=== PATIENT | male | born 1940 | race Caucasian/White ===

== ENCOUNTER → 2017-11-08 08:47 | Outpatient (CLI) | payer MEDICARE, SELFPAY ==
[2017-11-08 09:06] LABS: Add Manual Diff / Slide Review NO; Basophils Percent Auto 0.3 % (0-2); Eosinophils Percent Auto 1.1 % (2-4); Hematocrit 41.4 % (41-53); Hemoglobin 13.9 g/dL (13.5-17.5); Lymphocytes Percent Auto 46.1 % (25-40); Mean Corpuscular HGB Conc 33.6 % (30-36); Mean Corpuscular Hemoglobin 31.4 PG (26-34); Mean Corpuscular Volume 93.3 fL (80-100); Monocytes Percent Auto 4.8 % (3-14); Neutrophils Absolute Auto 1600 /uL (3000-5900); Neutrophils Percent Auto 47.7 % (50-75); Platelet Count 113 X10^3/uL (150-400); Red Blood Cell Count 4.44 X10^6/uL (4.5-5.9); Red Cell Distribution Width 14.6 % (11.6-14.8); White Blood Cell Count 3.3 X10^3/uL (4.5-11.0)
[2017-11-08 09:23] LABS: Alanine Aminotransferase 38 IU/L (21-72); Albumin 4.3 g/dL (3.5-5.0); Albumin Globulin Ratio 1.5 (1.0-2.8); Alkaline Phosphatase 85 U/L (38-126); Aspartate Aminotransferase 33 IU/L (17-59); BUN Creatinine Ratio 16.7 (6-22); Bilirubin Total 0.5 mg/dL (0.2-1.3); Blood Urea Nitrogen 15 mg/dL (9-20); Calcium 9.2 mg/dL (8.4-10.2); Carbon Dioxide 29 mmol/L (22-32); Chloride 101 mmol/L (98-107); Estimated Glomerular Filt Rate > 60.0 mL/min (>60); Globulin 2.8 g/dL (1.7-4.1); Glucose 157 mg/dL (80-110); HEMOLYSIS < 15 (0-50); Lactate Dehydrogenase 554 U/L (313-618); Potassium 4.5 mmol/L (3.4-5.1); Sodium 142 mmol/L (137-145); Total Protein 7.1 g/dL (6.3-8.2)
== END ==
PROVIDERS: Family Provider Internal Medicine; PCP Internal Medicine; Visit Provider Nurse Practitioner Gerontology
DX: D69.6 Thrombocytopenia, unspecified (principal); D72.819 Decreased white blood cell count, unspecified
CPT/HCPCS: 36415; 80053; 83615; 85025

== ENCOUNTER → 2018-04-11 07:57 | Outpatient (CLI) | payer MEDICARE, SELFPAY ==
[2018-04-11 10:05] LABS: BUN Creatinine Ratio 17.5 (6-22); Blood Urea Nitrogen 21 mg/dL (9-20); Calcium 9.3 mg/dL (8.4-10.2); Carbon Dioxide 28 mmol/L (22-32); Chloride 98 mmol/L (98-107); Estimated Glomerular Filt Rate 58.9 mL/min (>60); Glucose 169 mg/dL (80-110); HEMOLYSIS < 15 (0-50); Sodium 142 mmol/L (137-145)
== END ==
PROVIDERS: Family Provider Internal Medicine; PCP Internal Medicine; Visit Provider Internal Medicine Cardiovascular Disease
DX: I25.5 Ischemic cardiomyopathy (principal); I47.2 Ventricular tachycardia
CPT/HCPCS: 36415; 80048

== ENCOUNTER → 2018-05-09 09:01 | Outpatient (CLI) | payer MEDICARE, SELFPAY ==
[2018-05-09 09:29] LABS: Add Manual Diff / Slide Review NO; Basophils Percent Auto 0.4 % (0-2); Eosinophils Percent Auto 2.1 % (2-4); Hematocrit 38.4 % (41-53); Hemoglobin 12.7 g/dL (13.5-17.5); Lymphocytes Percent Auto 40.7 % (25-40); Mean Corpuscular HGB Conc 33.2 % (30-36); Mean Corpuscular Hemoglobin 31.5 PG (26-34); Monocytes Percent Auto 4.9 % (3-14); Neutrophils Absolute Auto 1800 /uL (3000-5900); Neutrophils Percent Auto 51.9 % (50-75); Platelet Count 126 X10^3/uL (150-400); Red Blood Cell Count 4.04 X10^6/uL (4.5-5.9); Red Cell Distribution Width 14.1 % (11.6-14.8); White Blood Cell Count 3.4 X10^3/uL (4.5-11.0)
[2018-05-09 09:39] LABS: Alanine Aminotransferase 43 IU/L (21-72); Albumin Globulin Ratio 1.4 (1.0-2.8); Alkaline Phosphatase 83 U/L (38-126); Aspartate Aminotransferase 37 IU/L (17-59); Bilirubin Total 0.5 mg/dL (0.2-1.3); Blood Urea Nitrogen 30 mg/dL (9-20); Calcium 8.9 mg/dL (8.4-10.2); Carbon Dioxide 26 mmol/L (22-32); Chloride 100 mmol/L (98-107); Estimated Glomerular Filt Rate 58.9 mL/min (>60); Globulin 2.9 g/dL (1.7-4.1); Glucose 206 mg/dL (80-110); HEMOLYSIS < 15 (0-50); Lactate Dehydrogenase 552 U/L (313-618); Potassium 4.8 mmol/L (3.4-5.1); Sodium 139 mmol/L (137-145); Total Protein 6.9 g/dL (6.3-8.2)
== END ==
PROVIDERS: Family Provider Internal Medicine; PCP Internal Medicine
DX: D72.819 Decreased white blood cell count, unspecified (principal)
CPT/HCPCS: 36415; 80053; 83615; 85025

== ENCOUNTER → 2018-12-06 07:14 | Outpatient (CLI) | payer MEDICARE, SELFPAY ==
[2018-12-06 09:04] LABS: Blood Urea Nitrogen 18 mg/dL (9-20); Calcium 9.4 mg/dL (8.4-10.2); Carbon Dioxide 28 mmol/L (22-32); Chloride 100 mmol/L (98-107); Estimated Glomerular Filt Rate 58.7 mL/min (>60); Glucose 158 mg/dL (80-110); HEMOLYSIS < 15 (0-50); Potassium 4.7 mmol/L (3.4-5.1); Sodium 140 mmol/L (137-145)
== END ==
PROVIDERS: Family Provider Internal Medicine; PCP Internal Medicine; Visit Provider Internal Medicine Cardiovascular Disease
DX: I25.5 Ischemic cardiomyopathy (principal); I10 Essential (primary) hypertension
CPT/HCPCS: 36415; 80048

== ENCOUNTER → 2019-01-12 09:14 | Outpatient (CLI) | payer MEDICARE, SELFPAY ==
--- NOTE | 2019-01-12 10:28 | PM.TREADMILL ---
Cardiac Stress Test Report Referral & Results Date Patient Seen: 01/12/19 Requesting provider: Mckenzie Spring Indication: Angina Procedure Note: After both written and verbal informed consent the patient had an IV started by the diagnostic imaging RN, and then was hooked up to the treadmill monitoring system. The Lexiscan material, and then the Cardiolite tracer, were administered sequentially. An additional 3 min was spent monitoring the patient while supine on the gurney. The patient had a normal response to all infused materials. Impression: Please see perfusion imaging report for details regarding possible ischemia Please note: Actual ECG tracings can be found in the PACS system.
--- NOTE | 2019-01-13 17:11 | DI.NM.S_ITS ---
DATE OF SERVICE: 01/12/2019 PROCEDURE: Pharmacological perfusion study. INDICATIONS: Exertional chest discomfort with history severe ischemic cardiomyopathy, history of bypass surgery, biventricular AICD. RADIOPHARMACEUTICAL: 26.1 mCi technetium-99m Myoview IV was injected at stress and 23.8 mCi technetium-99m Myoview IV was injected at rest. CARDIAC STRESS: Patient underwent IV Lexiscan perfusion study under the supervision of an attending staff using standard IV Lexiscan protocol. He remained hemodynamically stable. Baseline EKG revealed AV sequentially paste rhythm. Stress EKG did not reveal any obvious inducible ischemic changes. There were no significant arrhythmias. RAW DATA: There is increased subdiaphragmatic activity as well as large shadow seen in the abdomen which was seen in 05/2015 as well. GATED STUDY: Stress LV ejection fraction 22% and resting about 31%. Except anterolateral wall, the rest of the LV wall appears to be severely hypokinetic to akinetic. TID ratio is 1.06, which is within normal limits. Resting LV end- diastolic volume is 211 mL. No transient ischemic dilatation. Lung/heart ratio is 0.24, which is within normal limits. MYOCARDIAL PERFUSION SCAN: Stress supine and resting supine and stress prone images were compared to each other. It appears to be that patient has predominantly fixed, severe perfusion defect involving the entire inferior wall, entire apex, septum, anterior wall, and distal lateral wall consistent with multivessel infarction. No obvious reversible ischemia. CONCLUSION: This is an abnormal myocardial perfusion study consistent with large infarction involving the inferior wall, entire apex, septum, anterior wall, and distal lateral wall suggestive of multi-vessel territory infarction. No obvious reversible ischemia. Patient had perfusion study in 05/2015; at that time also patient had similar perfusion defect. Fer Lawrence - [employer]/angelica/ab doc#: [id number]/job#: [id number] dd: 01/13/2019 16:55:00 dt: 01/13/2019 17:01:00 DICTATING MD/COPIES TO: Mckenzie Spring MD COPIES MNE: GARETH
== END ==
PROVIDERS: Family Provider Internal Medicine; PCP Internal Medicine; Visit Provider Internal Medicine Cardiovascular Disease
DX: I20.8 Other forms of angina pectoris (principal); R07.89 Other chest pain; R94.39 Abnormal result of other cardiovascular function study; I25.5 Ischemic cardiomyopathy; Z95.1 Presence of aortocoronary bypass graft; Z95.810 Presence of automatic (implantable) cardiac defibrillator
CPT/HCPCS: 78452; 93016; 93017; 93018; A9502; J2785

== ENCOUNTER → 2019-01-13 09:05 | Outpatient (CLI) | payer MEDICARE, SELFPAY ==
--- NOTE | 2019-01-13 | DI.ECHO.S_ITS ---
[facility]---------+ [facility] +---------+ : : [address] [place] : : : : [id number] : : : : Phone: [phone]+ Echocardiogram Report + + :Name: NADEEM PINZON Study Date: 01/13/2019 Height: 69 in : :[facility] Location: [facility] Weight: 207 lb : : Gender: Male BSA: 2.1 m2 : :: 1940 Age: 78 yrs BP: 118/70 mmHg: :Reason For Study: VELARDE : :Ordering Physician: Mckenzie : :Marisela Spring Performed By: Susanna Page : + + Interpretation Summary The left ventricle is moderately dilated. This is increased compared to the previous study. LV end diastolic dimension increased from 6.2- 6.5 cm. The ejection fraction is estimated to be 20-25%. Left ventricular function has mildly worsened compared to the previous exam. No significant change in wall motion abnormalities as stated below. The right ventricle is grossly normal size. Right ventricular systolic function is mildly reduced. There is a pacemaker lead in the right ventricle. There is mild mitral regurgitation. Compared to the prior echo study, there has been a decrease in the severity of mitral regurgitation. There is mild tricuspid regurgitation.The right ventricular systolic pressure is estimated to be at least 30 mmHg based on an estimated right atrial pressure of 8 mm Hg. Mild atherosclerotic plaque(s) in the aortic arch. Procedure: A two-dimensional transthoracic echocardiogram with color flow and Doppler was performed. The study quality was technically adequate. A contrast injection of Definity was performed to improve assessment of LV function. Comparison is made with the echocardiogram of 08/18/2017. The patient has a paced rhythm. Left Ventricle: There is normal left ventricular wall thickness. The left ventricle is moderately dilated. This is increased compared to the previous study. There is no thrombus. The ejection fraction is estimated to be 20-25%. Left ventricular function has mildly worsened compared to the previous exam. There is a moderate to severe global hypokinesis with akinesis of inferior wall, apex, mid to distal septum, posterolateral wall unchanged from the previous study. Basal LV segments appears to have relatively better contractility. Diastolic function could not be accurately assessed due to paced rhythm. Right Ventricle: The right ventricle is not well visualized. There is a pacemaker lead in the right ventricle. The right ventricle is grossly normal size. Right ventricular systolic function is mildly reduced. Atria: Both atria are mildly dilated. The left atrium has mildly increased in size since the prior echo exam. There is no Doppler evidence for an interatrial shunt. Mitral Valve: The mitral valve leaflets appear mildly thickened, but open well. There is mild mitral annular calcification. The mitral valve chordae are thickened and/or calcified. There is mild mitral regurgitation. Compared to the prior echo study, there has been a decrease in the severity of mitral regurgitation. Aortic Valve: The aortic valve is trileaflet. The aortic valve opens well. The aortic valve is mildly calcified. There is no aortic valve stenosis. No aortic regurgitation is present. Tricuspid Valve: The tricuspid valve is not well visualized, but is grossly normal. There is mild tricuspid regurgitation. The right ventricular systolic pressure is estimated to be at least 30 mmHg based on an estimated right atrial pressure of 8 mm Hg. Compared to the prior echo exam, there has been no change in TR severity. Pulmonic Valve: The pulmonic valve is not well visualized. There is trace pulmonic regurgitation. Great Vessels: The aortic root is mildly dilated. No significant change from the previous study. The ascending aorta is mildly enlarged. There has been no significant change since the previous study. Mild atherosclerotic plaque(s) in the aortic arch. The pulmonary artery is not well visualized, but is probably normal size. The IVC is dilated (diameter is greater than 2.1 cm) yet it collapses greater than 50% with a sniff. This suggests a right atrial pressure of 8 mm Hg. Pericardium/ Pleura There is no pericardial effusion. There is no pleural effusion. MMode/2D Measurements & Calculations LVIDd: 6.5 cm Ao root diam: 4.0 cm LVIDs: 4.5 cm asc Aorta Diam: 3.5 cm FS: 30.6 % EPSS: 1.9 cm IVSd: 0.88 cm LVPWd: 1.0 cm LV alexander. diameter/BSA (cm/m^2): 3.1 LV sys. diameter/BSA (cm/m^2): 2.2 LA A2 area: 22.0 cm2 RA long axis: 5.2 cm LA A4 area: 24.5 cm2 RA area: 21.5 cm2 LA length (vol): 6.3 cm RA vol: 75.8 ml LA vol: 72.6 ml RA : 36.1 ml/m2 LA vol index: 34.6 ml/m2 IVC diam: 2.3 cm RVD1 (basal): 4.7 cm RVD2 (mid): 4.8 cm Doppler Measurements & Calculations Ao V2 max: 105.6 cm/sec LVOT Max Steven: 43.5 cm/sec Ao V2 mean: 75.8 cm/sec LV V1 max P.76 mmHg Ao max P.5 mmHg LV V1 VTI: 9.8 cm Ao mean P.5 mmHg sev ratio: 0.43 Ao V2 VTI: 22.7 cm MV E max steven: 48.2 cm/sec TR max steven: 234.5 cm/sec MV A max steven: 63.0 cm/sec TR max P.0 mmHg MV E/A: 0.77 PA V2 max: 62.9 cm/sec Med Peak E' Steven: 3.5 cm/sec PA V2 mean: 45.4 cm/sec E/E' med: 13.7 PA mean P.88 mmHg Lat Peak E' Steven: 5.8 cm/sec PA Accel Time: 0.14 sec E/E' lat: 8.4 E/e' average: 11.0 MV dec time: 0.18 sec MV P1/2t: 53.3 msec MV P1/2t max steven: 48.4 cm/sec MVA(P1/2t): 4.1 cm2 Reading Physician:06:35 PM
== END ==
PROVIDERS: PCP Internal Medicine; Visit Provider Internal Medicine Cardiovascular Disease
DX: I20.8 Other forms of angina pectoris (principal); Z95.0 Presence of cardiac pacemaker; I34.0 Nonrheumatic mitral (valve) insufficiency; I07.1 Rheumatic tricuspid insufficiency; I70.0 Atherosclerosis of aorta
CPT/HCPCS: 93306; Q9957

== ENCOUNTER → 2019-01-19 07:26 | Outpatient (CLI) | payer MEDICARE, SELFPAY ==
[2019-01-19 08:39] LABS: BUN Creatinine Ratio 19.2 (6-22); Blood Urea Nitrogen 23 mg/dL (9-20); Calcium 9.7 mg/dL (8.4-10.2); Carbon Dioxide 28 mmol/L (22-32); Chloride 100 mmol/L (98-107); Estimated Glomerular Filt Rate 58.7 mL/min (>60); Glucose 220 mg/dL (80-110); HEMOLYSIS < 15 (0-50); Potassium 4.5 mmol/L (3.4-5.1); Sodium 139 mmol/L (137-145)
== END ==
PROVIDERS: PCP Internal Medicine; Visit Provider Internal Medicine Cardiovascular Disease
DX: I10 Essential (primary) hypertension (principal)
CPT/HCPCS: 36415; 80048

== ENCOUNTER → 2019-02-01 07:11 | Outpatient (CLI) | payer MEDICARE, SELFPAY ==
[2019-02-01 09:12] LABS: B Type Natriuretic Peptide < 100 (<100)
[2019-02-01 09:22] LABS: Alanine Aminotransferase 20 IU/L (21-72); Aspartate Aminotransferase 25 IU/L (17-59); BUN Creatinine Ratio 21.8 (6-22); Blood Urea Nitrogen 24 mg/dL (9-20); Calcium 9.3 mg/dL (8.4-10.2); Carbon Dioxide 26 mmol/L (22-32); Chloride 101 mmol/L (98-107); Cholesterol 107 mg/dL (140-199); Estimated Glomerular Filt Rate > 60.0 mL/min (>60); Glucose 154 mg/dL (80-110); HDL Cholesterol 24 mg/dL (40-60); HEMOLYSIS < 15 (0-50); LDL Cholesterol Calculated 60 mg/dL (<100); Potassium 4.6 mmol/L (3.4-5.1); Sodium 138 mmol/L (137-145); Triglycerides 117 mg/dL (35-150)
== END ==
PROVIDERS: PCP Internal Medicine; Visit Provider Internal Medicine Cardiovascular Disease
DX: E78.5 Hyperlipidemia, unspecified (principal); I50.20 Unspecified systolic (congestive) heart failure; R06.02 Shortness of breath
CPT/HCPCS: 36415; 80048; 80061; 83880; 84450; 84460

== ENCOUNTER → 2019-04-19 07:11 | Outpatient (CLI) | payer MEDICARE, SELFPAY ==
[2019-04-19 08:06] LABS: BUN Creatinine Ratio 22.7 (6-22); Blood Urea Nitrogen 25 mg/dL (9-20); Calcium 9.3 mg/dL (8.4-10.2); Carbon Dioxide 28 mmol/L (22-32); Chloride 99 mmol/L (98-107); Estimated Glomerular Filt Rate > 60.0 mL/min (>60); Glucose 137 mg/dL (80-110); HEMOLYSIS < 15 (0-50); Potassium 4.5 mmol/L (3.4-5.1); Sodium 139 mmol/L (137-145)
== END ==
PROVIDERS: Visit Provider Internal Medicine Cardiovascular Disease
DX: I50.20 Unspecified systolic (congestive) heart failure (principal)
CPT/HCPCS: 36415; 80048

== ENCOUNTER → 2019-05-11 07:25 | Outpatient (CLI) | payer MEDICARE, SELFPAY ==
[2019-05-11 07:50] LABS: Add Manual Diff / Slide Review NO; Basophils Absolute Auto 0 /uL (0-100); Basophils Percent Auto 0.3 % (0-2); Eosinophils Absolute Auto 0 /uL (0-450); Eosinophils Percent Auto 1.6 % (2-4); Hematocrit 40.7 % (41-53); Hemoglobin 13.6 g/dL (13.5-17.5); Lymphocytes Absolute Auto 1400 /uL (1100-4500); Lymphocytes Percent Auto 50.1 % (25-40); Mean Corpuscular HGB Conc 33.5 % (30-36); Mean Corpuscular Hemoglobin 31.2 PG (26-34); Mean Corpuscular Volume 93.2 fL (80-100); Monocytes Absolute Auto 100 /uL (0-900); Monocytes Percent Auto 4.7 % (3-14); Neutrophils Absolute Auto 1200 /uL (1500-7000); Neutrophils Percent Auto 43.3 % (50-75); Platelet Count 109 X10^3/uL (150-400); Red Blood Cell Count 4.37 X10^6/uL (4.5-5.9); Red Cell Distribution Width 14.9 % (11.6-14.8); White Blood Cell Count 2.7 X10^3/uL (4.5-11.0)
[2019-05-11 08:01] LABS: Alanine Aminotransferase 21 IU/L (<50); Albumin 4.6 g/dL (3.5-5.0); Albumin Globulin Ratio 1.9 (1.0-2.8); Alkaline Phosphatase 79 U/L (38-126); Aspartate Aminotransferase 29 IU/L (17-59); BUN Creatinine Ratio 22.5 (6-22); Bilirubin Total 0.5 mg/dL (0.2-1.3); Blood Urea Nitrogen 27 mg/dL (9-20); Calcium 9.2 mg/dL (8.4-10.2); Carbon Dioxide 27 mmol/L (22-32); Chloride 102 mmol/L (98-107); Estimated Glomerular Filt Rate 58.7 mL/min (>60); Globulin 2.4 g/dL (1.7-4.1); Glucose 151 mg/dL (80-110); HEMOLYSIS < 15 (0-50); Lactate Dehydrogenase 501 U/L (313-618); Potassium 4.7 mmol/L (3.4-5.1); Sodium 138 mmol/L (137-145)
== END ==
PROVIDERS: PCP Internal Medicine
DX: R68.89 Other general symptoms and signs (principal)
CPT/HCPCS: 36415; 80053; 83615; 85025

== ENCOUNTER → 2019-07-27 07:18 | Outpatient (CLI) | payer MEDICARE, SELFPAY ==
[2019-07-27 08:58] LABS: BUN Creatinine Ratio 21.7 (6-22); Blood Urea Nitrogen 26 mg/dL (9-20); Calcium 9.7 mg/dL (8.4-10.2); Carbon Dioxide 27 mmol/L (22-32); Chloride 100 mmol/L (98-107); Estimated Glomerular Filt Rate 58.7 mL/min (>60); Glucose 175 mg/dL (80-110); HEMOLYSIS < 15 (0-50); Potassium 4.8 mmol/L (3.4-5.1); Sodium 139 mmol/L (137-145)
== END ==
PROVIDERS: PCP Internal Medicine; Referring Provider Internal Medicine Cardiovascular Disease; Visit Provider Internal Medicine Cardiovascular Disease
DX: I25.5 Ischemic cardiomyopathy (principal)
CPT/HCPCS: 36415; 80048

== ENCOUNTER → 2019-11-08 08:40 | Outpatient (CLI) | payer MEDICARE, SELFPAY ==
[2019-11-08 11:36] LABS: BUN Creatinine Ratio 16.7 (6-22); Blood Urea Nitrogen 22 mg/dL (9-20); Calcium 9.3 mg/dL (8.4-10.2); Carbon Dioxide 26 mmol/L (22-32); Chloride 99 mmol/L (98-107); Estimated Glomerular Filt Rate 52.5 mL/min (>60); Glucose 163 mg/dL (80-110); HEMOLYSIS < 15 (0-50); Sodium 136 mmol/L (137-145)
== END ==
PROVIDERS: PCP Internal Medicine; Referring Provider Internal Medicine Cardiovascular Disease; Visit Provider Internal Medicine Cardiovascular Disease
DX: I50.22 Chronic systolic (congestive) heart failure (principal)
CPT/HCPCS: 36415; 80048

== ENCOUNTER → 2020-02-02 07:15 | Outpatient (CLI) | payer MEDICARE, SELFPAY ==
[2020-02-02 08:20] LABS: Hemoglobin A1C% w Est Avg Glu 8.1 % (4.0-6.0)
[2020-02-02 08:21] LABS: Glucose 157 mg/dL (80-110)
[2020-02-02 08:22] LABS: BUN Creatinine Ratio 19.9 (6-22); Blood Urea Nitrogen 30 mg/dL (9-20); Calcium 9.1 mg/dL (8.4-10.2); Carbon Dioxide 27 mmol/L (22-32); Chloride 101 mmol/L (98-107); Estimated Glomerular Filt Rate 44.9 mL/min (>60); Glucose 156 mg/dL (80-110); HEMOLYSIS < 15 (0-50); Potassium 4.9 mmol/L (3.4-5.1); Sodium 137 mmol/L (137-145)
== END ==
PROVIDERS: PCP Internal Medicine; Referring Provider Internal Medicine Cardiovascular Disease; Visit Provider Internal Medicine
DX: R73.01 Impaired fasting glucose (principal); I50.9 Heart failure, unspecified
CPT/HCPCS: 36415; 80048; 82947; 83036

== ENCOUNTER → 2020-03-20 07:15 | Outpatient (CLI) | payer MEDICARE, SELFPAY ==
[2020-03-20 08:46] LABS: Blood Urea Nitrogen 28 mg/dL (9-20); Calcium 9.2 mg/dL (8.4-10.2); Carbon Dioxide 28 mmol/L (22-32); Chloride 104 mmol/L (98-107); Estimated Glomerular Filt Rate 57.4 mL/min (>60); Glucose 115 mg/dL (80-110); HEMOLYSIS < 15 (0-50); Potassium 4.8 mmol/L (3.4-5.1); Sodium 140 mmol/L (137-145)
== END ==
PROVIDERS: PCP Internal Medicine; Referring Provider Internal Medicine Cardiovascular Disease; Visit Provider Internal Medicine Cardiovascular Disease
DX: I10 Essential (primary) hypertension (principal)
CPT/HCPCS: 36415; 80048

== ENCOUNTER → 2020-04-03 09:08 | Outpatient (CLI) | payer MEDICARE, SELFPAY ==
--- NOTE | 2020-04-03 10:15 | DIET.PN ---
Diabetes Intake: Initial Assessment Assess: Mr. Lawrence is a 79 YO referred for recent diagnosis of type 2 diabetes. States he follows a diabetic diet at home as his has had diabetes for many years. present for appt and admits to eating sweet treats after most meals. He does not believe his diabetes is very serious. He walks 2-4 mi most days and monitors his fasting glucose daily. Labs: Per pt report: A1c: 8.1 Meds: metf XR 1000mg pm Diet: per 24 hr recall: B: oatmeal w/fruit, eggs, toast, lam/sausage L: sandwich, soup; quiche; casserole, salad, pickeld beets, corn D: 1/2 apple, popcorn; 1/2 pb&j; chicken noodle soup; leftovers Sn: ritz crackers, nuts (pistachios) Sweets after meals Wt: 190lb Ht: 69in BMI: 28 BP: na DX: Altered nutrition related laboratory values related to impaired glucose metabolism, lack of previous exposure to nutrition information as evidenced by pt report, diagnosis of diabetes, previous diet high in refined carbohydrates. Intervention: 1. Completed intake assessment. Discussed barriers to care. 2. Discussed pathophysiology of diabetes. Reviewed A1c and its correlation to blood glucose numbers. Discussed recommended BG ranges. 3. Discussed importance of self-monitoring, how often, and when to check. Provided demonstration on use of glucometer. 4. Reviewed hyper/hypoglycemia and treatment. 5. Reviewed safe disposal of equipment (strip/lancets/insulin needles). 6. Created SMART goals for pt self-care and success. 7. Discussed program curriculum outline and class needs based on individual goals. SMART Goals: 1. Pt would like to lower A1c to 7.0 in the next 3 mo through learning appropriate portion sizes, carbohydrate consistency, and cutting down on after meal treats. Monitor/Evaluate: Basic Nutrition Class Scheduled for May 16.
== END ==
PROVIDERS: PCP Internal Medicine; Referring Provider Internal Medicine; Visit Provider Internal Medicine
DX: E11.9 Type 2 diabetes mellitus without complications (principal)
CPT/HCPCS: G0108

== ENCOUNTER 2020-04-16 08:11 | Emergency (ER) | payer MEDICARE, SELFPAY ==
[2020-04-16] VITALS (19 sets, daily range): BP systolic 78–122; BP diastolic 53–64; PULSE 59–144; RESP 17–32; TEMP 37; O2SAT 94–97; BMI 26.9
--- NOTE | 2020-04-16 08:26 | ED.GENADULT ---
HPI - General Adult General Chief complaint: Dizziness Stated complaint: heart issue Time Seen by Provider: 04/16/20 08:16 Source: patient Mode of arrival: Ambulatory Limitations: no limitations History of Present Illness HPI narrative: 79-year-old male with history of coronary artery disease, has a pacemaker/defibrillator in place. It is a [employer] brand. Also has a history of CHF. States that he went to bed last night had his normal state health. Woke up this morning in his normal state health. He states that he normally walks 2.5 miles every morning and he when out for his normal walk. He states that he got approximately long-term through the walk when he started to feel lightheaded. It was not a room spinning sensation. He did not have any chest pain or shortness of breath. Did not pass out. He states he had to turn around and come home. He spent some time sitting in his garage when he returned home without any improvement of his symptoms. Arrived to the emergency department by private vehicle with his . Upon arrival patient states that he still is feeling somewhat lightheaded but is not having chest pain or shortness of breath. He did not pass out. No headache. Not on blood thinners. Related Data Home Medications Medication Instructions Recorded Confirmed aspirin 81 mg PO DAILY 05/11/18 08/17/19 metoprolol succinate 37.5 mg PO BID 05/11/18 08/17/19 multivitamin 1 cap PO DAILY 05/11/18 08/17/19 niacin 1,500 mg PO QAM 05/11/18 08/17/19 ranitidine HCl 150 mg PO BID 05/11/18 08/17/19 tamsulosin [Flomax] 0.4 mg PO BID 05/11/18 08/17/19 ascorbic acid (vitamin C) 1,000 mg PO Q12H 05/16/19 08/17/19 atorvastatin 40 mg PO DAILY 05/16/19 08/17/19 benazepril 10 mg PO BID 05/16/19 08/17/19 eplerenone 25 mg PO DAILY 05/16/19 08/17/19 furosemide 20 mg PO DAILY 05/16/19 08/17/19 isosorbide mononitrate 30 mg PO DAILY 05/16/19 08/17/19 Review of Systems Constitutional Constitutional: Denies chills, Denies fever(s), Denies headache(s) and Denies weakness Eyes Eyes: Denies change in vision ENT Ears, Nose, Mouth, and Throat: Denies vertigo, Reports dizziness, Denies headache(s), Reports disequilibrium, Denies sore throat and Denies throat swelling Cardiovascular Cardiovascular: Denies chest pain, Denies rapid heart rate, Denies irregular heart rhythm, Reports lightheadedness and Denies dyspnea Respiratory Respiratory: Denies cough and Denies dyspnea Gastrointestinal Gastrointestinal: Denies abdominal pain, Denies nausea and Denies vomiting Genitourinary Genitourinary: Denies dysuria Genitourinary: Denies dysuria Musculoskeletal Musculoskeletal: Denies arthralgias and Denies myalgias Integumentary/Breasts Skin/Breast: Denies lesions and Denies rash Neurologic Neurologic: Denies confusion, Denies vertigo, Reports dizziness, Denies headache(s), Reports disequilibrium and Denies weakness Psychiatric Psychiatric: Denies confusion and Denies depression Allergic/Immunologic Allergic/Immunologic: Denies throat swelling Patient History Medical History Congestive heart failure (Acute) Coronary artery disease (Acute) Thrombocytopenia (Inactive) Family History Father Heart disease Social History Smoking Status: Former smoker eating out: rarely or never Type(s) of exercise: walking Smoking Status: Former smoker Exam Initial Vital Signs Initial Vital Signs: Vital Signs Temperature 98.6 F 04/16/20 08:17 Pulse Rate 144 H 04/16/20 08:17 Respiratory Rate 18 04/16/20 08:17 Blood Pressure 78/60 L 04/16/20 08:17 Pulse Oximetry 96 04/16/20 08:17 Const General: cooperative and comfortable Limitations: mental status not altered HENMT Head: normal to inspection and normocephalic Resp Effort & Inspection: normal respiratory effort Auscultation: clear to auscultation bilaterally Cardio Rate: tachycardic Rhythm: regular rhythm Pulses: radial pulses present GI Inspection: non-distended Palpation: soft and No firm Skin Lesions: no lesions Rashes: no rashes Neuro General: patient alert, patient awake and patient oriented x3 Cognition: normal cognition Speech: speech normal Gait: normal gait Extrem General: normal to inspection, capillary refill normal and No edema Psych Appearance: grossly normal and well kempt Scores GCS [place] coma scale eye opening: Spontaneous Mayela coma scale verbal response: Orientated [place] coma scale motor response: Obey commands [place] coma scale total score: 15 Course Orders Ordered: ED Orders 04/16/20 08:20 EKG-12 Lead Stat 04/16/20 08:28 XR chest 1V Stat 04/16/20 08:31 Complete Blood Count AUTO DIFF Stat Comprehensive Metabolic Panel Stat Lipase Stat Magnesium Stat NT-proBNP (BNP-Adult 18+) Stat Partial Thromboplastin Time Stat Procalcitonin Stat Prothrombin Time INR Stat Troponin & CK Cardiac Panel Stat 04/16/20 08:58 RT Consult Eval and Treat Now 04/16/20 09:19 EKG-12 Lead Stat 04/16/20 09:31 COVID19 Stat Sodium Chloride (Normal Saline 0.9%) 1,000 mls @ 125 mls/hr IV CONT BRUNO Last Admin: 04/16/20 09:25 Dose: 125 mls/hr Documented by: SAIDA Discontinued Medications Fentanyl (Sublimaze) 50 mcg IV NOW ONE Stop: 04/16/20 09:11 Propofol (Diprivan) 100 mg IV NOW ONE Stop: 04/16/20 09:11 Vital Signs Vital signs: Vital Signs - 8 hr 04/16/20 08:17 04/16/20 09:20 04/16/20 09:22 Temperature 98.6 F Pulse Rate 144 H 60 60 Respiratory Rate 18 18 22 Blood Pressure 78/60 L 122/64 112/59 L Pulse Oximetry 96 96 96 04/16/20 09:27 04/16/20 09:30 04/16/20 09:35 Temperature Pulse Rate 60 60 60 Respiratory Rate 32 H 27 H 19 Blood Pressure 98/55 L 99/58 L 95/53 L Pulse Oximetry 95 96 96 04/16/20 09:40 04/16/20 09:45 04/16/20 09:50 Temperature Pulse Rate 60 60 60 Respiratory Rate 24 17 17 Blood Pressure 95/57 L 96/56 L 102/57 L Pulse Oximetry 95 96 94 04/16/20 09:55 04/16/20 10:00 Temperature Pulse Rate 60 60 Respiratory Rate Blood Pressure 95/53 L 101/60 Pulse Oximetry 96 97 Medical Decision Making Lab Data Lab results reviewed: Yes I reviewed the patient's lab results. Result diagrams: 04/16/20 08:31 04/16/20 08:31 Labs: Lab Results 04/16/20 04/16/20 04/16/20 Range/Units 08:31 08:31 08:31 WBC 5.2 (4.5-11.0) X10^3/uL RBC 4.23 L (4.5-5.9) X10^6/uL Hgb 12.9 L (13.5-17.5) g/dL Hct 39.1 L (41-53) % MCV 92.4 (80-100) fL MCH 30.4 (26-34) PG MCHC 32.8 (30-36) % RDW 14.7 (11.6-14.8) % Plt Count 134 L (150-400) X10^3/uL Neut % (Auto) 35.0 L (50-75) % Lymph % (Auto) 58.8 H (25-40) % [place] % (Auto) 4.5 (3-14) % Eos % (Auto) 1.4 L (2-4) % Baso % (Auto) 0.3 (0-2) % Neut # (Auto) 1800 (6888-6361) /uL Lymph # (Auto) 3100 (2025-7446) /uL [place] # (Auto) 200 (0-900) /uL Eos # (Auto) 100 (0-450) /uL Baso # (Auto) 0 (0-100) /uL PT 13.9 H (10.1-12.7) SECONDS INR 1.2 (0.9-1.3) APTT 31 (26.4-36.2) SECONDS Sodium 138 (137-145) mmol/L Potassium 4.8 (3.4-5.1) mmol/L Chloride 102 (98-107) mmol/L Carbon Dioxide 30 (22-32) mmol/L BUN 31 H (9-20) mg/dL Creatinine 1.29 H (0.66-1.25) mg/dL Estimated GFR 53.9 L (>60) mL/min BUN/Creatinine Ratio 24.0 H (6-22) Glucose 166 H (80-110) mg/dL Calcium 9.1 (8.4-10.2) mg/dL Magnesium (1.6-2.3) mg/dL Total Bilirubin 0.5 (0.2-1.3) mg/dL AST 34 (17-59) IU/L ALT 21 (<50) IU/L Alkaline Phosphatase 97 (38-126) U/L Total Creatine Kinase (55-170) U/L CK-MB (CK-2) CK-MB (CK-2) Rel Index Troponin I (0.01-0.034) ng/mL NT-Pro-B Natriuret Pep (<450) pg/mL Total Protein 7.3 (6.3-8.2) g/dL Albumin 4.5 (3.5-5.0) g/dL Globulin 2.8 (1.7-4.1) g/dL Albumin/Globulin Ratio 1.6 (1.0-2.8) Lipase (23-300) U/L Procalcitonin (<0.5) ng/mL COVID-19 PCR (Negative) 04/16/20 04/16/20 04/16/20 Range/Units 08:31 08:31 08:31 WBC (4.5-11.0) X10^3/uL RBC (4.5-5.9) X10^6/uL Hgb (13.5-17.5) g/dL Hct (41-53) % MCV (80-100) fL MCH (26-34) PG MCHC (30-36) % RDW (11.6-14.8) % Plt Count (150-400) X10^3/uL Neut % (Auto) (50-75) % Lymph % (Auto) (25-40) % [place] % (Auto) (3-14) % Eos % (Auto) (2-4) % Baso % (Auto) (0-2) % Neut # (Auto) (0274-0729) /uL Lymph # (Auto) (0108-9810) /uL [place] # (Auto) (0-900) /uL Eos # (Auto) (0-450) /uL Baso # (Auto) (0-100) /uL PT (10.1-12.7) SECONDS INR (0.9-1.3) APTT (26.4-36.2) SECONDS Sodium (137-145) mmol/L Potassium (3.4-5.1) mmol/L Chloride (98-107) mmol/L Carbon Dioxide (22-32) mmol/L BUN (9-20) mg/dL Creatinine (0.66-1.25) mg/dL Estimated GFR (>60) mL/min BUN/Creatinine Ratio (6-22) Glucose (80-110) mg/dL Calcium (8.4-10.2) mg/dL Magnesium 1.9 (1.6-2.3) mg/dL Total Bilirubin (0.2-1.3) mg/dL AST (17-59) IU/L ALT (<50) IU/L Alkaline Phosphatase (38-126) U/L Total Creatine Kinase 68 (55-170) U/L CK-MB (CK-2) TNP CK-MB (CK-2) Rel Index TNP Troponin I < 0.012 (0.01-0.034) ng/mL NT-Pro-B Natriuret Pep 516 H (<450) pg/mL Total Protein (6.3-8.2) g/dL Albumin (3.5-5.0) g/dL Globulin (1.7-4.1) g/dL Albumin/Globulin Ratio (1.0-2.8) Lipase 463 H (23-300) U/L Procalcitonin < 0.05 (<0.5) ng/mL COVID-19 PCR (Negative) 04/16/20 Range/Units 09:31 WBC (4.5-11.0) X10^3/uL RBC (4.5-5.9) X10^6/uL Hgb (13.5-17.5) g/dL Hct (41-53) % MCV (80-100) fL MCH (26-34) PG MCHC (30-36) % RDW (11.6-14.8) % Plt Count (150-400) X10^3/uL Neut % (Auto) (50-75) % Lymph % (Auto) (25-40) % [place] % (Auto) (3-14) % Eos % (Auto) (2-4) % Baso % (Auto) (0-2) % Neut # (Auto) (0229-3925) /uL Lymph # (Auto) (1778-8315) /uL [place] # (Auto) (0-900) /uL Eos # (Auto) (0-450) /uL Baso # (Auto) (0-100) /uL PT (10.1-12.7) SECONDS INR (0.9-1.3) APTT (26.4-36.2) SECONDS Sodium (137-145) mmol/L Potassium (3.4-5.1) mmol/L Chloride (98-107) mmol/L Carbon Dioxide (22-32) mmol/L BUN (9-20) mg/dL Creatinine (0.66-1.25) mg/dL Estimated GFR (>60) mL/min BUN/Creatinine Ratio (6-22) Glucose (80-110) mg/dL Calcium (8.4-10.2) mg/dL Magnesium (1.6-2.3) mg/dL Total Bilirubin (0.2-1.3) mg/dL AST (17-59) IU/L ALT (<50) IU/L Alkaline Phosphatase (38-126) U/L Total Creatine Kinase (55-170) U/L CK-MB (CK-2) CK-MB (CK-2) Rel Index Troponin I (0.01-0.034) ng/mL NT-Pro-B Natriuret Pep (<450) pg/mL Total Protein (6.3-8.2) g/dL Albumin (3.5-5.0) g/dL Globulin (1.7-4.1) g/dL Albumin/Globulin Ratio (1.0-2.8) Lipase (23-300) U/L Procalcitonin (<0.5) ng/mL COVID-19 PCR Negative (Negative) Imaging Data Chest x-ray: Radiologist's Impression: [address] [address] XRay Report Signed Patient: Fer Lawrence RMR#: [id number] : 2Acct:[id number] Age/Sex: 79 / MDate of Service: 04/16/20 Loc: ED Accession Number: [id number] Procedure: XR chest 1V Ordering Provider: Kiel Espitia D.O. PROCEDURE: XR CHEST 1V INDICATIONS: Tachycardia TECHNIQUE: One view of the chest was acquired. COMPARISON: [facility], CR, XR CHEST 1VW (PORTABLE), 01/21/2016, 16:37. FINDINGS: Surgical changes and devices: Pacemaking device with dual chamber leads normal, stable over time. Prior sternotomy, presumed prior CABG. Lungs and pleura: Lungs are abnormal with a mild interstitial prominence previously present but accentuated by light film technique and reduced inspiration. No focal pneumonia found. No pleural effusions or pneumothorax. Mediastinum: Mediastinal contours appear normal. Heart size is normal. Bones and chest wall: No suspicious bony lesions. Overlying soft tissues appear unremarkable. IMPRESSION: Reduced inspiration, chronic mild interstitial prominence, no definite acute CHF. Dictated by: Harjinder Sharp M.D. on 04/16/2020 at 8:55 Approved by: Harjinder Sharp M.D. on 04/16/2020 at 8:57 ECG Data Attestation: I personally reviewed and interpreted this ECG as follows: Prior ECG tracings: not available for review Interpretation: Arrival EKG White complex tachycardia Ventricular rate of 146 After self converting Av dual paced rhythm Ventricular rate of 40 MDM Narrative Medical decision making narrative: Patient arrived tachycardic and hypotensive with systolic in the 70s however he was stable. He was mentating fine. Had no chest pain or shortness of breath. He actually stated that the lightheadedness that brought him into the ER was somewhat better. EKG shows a 1 complex tachycardia. I did discuss the case with Dr. Ambrocio with Cardiology. Patient does have an AV [employer] pacemaker in place. We did not have the device here in the emergency department to interrogated so the rep was contacted and was on his way. After discussion with Dr. Ambrocio a magnet was placed over the pacemaker however there was no change in the rate or the rhythm. Plan was to cardiovert patient. I did discuss this with the patient. The consent was signed. Prior to any administration of medications the patient converted to the AV paced rhythm with a rate of 60. His blood pressure improved. He then stated that all of his other symptoms resolved as well. Patient was then interrogated by the [employer]. It turns out that the patient was in ventricular tachycardia. There was no ventricular tachycardia sat on his pacemaker. [employer] rep and discussion with the splicing machine operator automatic and a new setting was placed on the device. I did discuss dose of the patient. He has been stable since he spontaneously converted. Plan to be is to discharge him home without any change to his medications since a new setting had been placed on his device. Patient was given return precautions and follow-up instructions. He expressed understanding and agreement. Discharge Plan Departure Patient Disposition: Home Clinical Impression: Ventricular tachycardia Instructions: DI for Ventricular Tachycardia Activity Restrictions/Additional Instructions: A new setting on your pacemaker was placed by the help desk representative. This was under the direction by the splicing machine operator automatic. This should prevent the event that happened this morning from happening again. I recommend that you continue all of your medications as directed. Please return to the emergency department for any new or worsening symptoms Prescriptions: No Action tamsulosin [Flomax] 0.4 mg Capsule 0.4 mg PO BID RF: 0 niacin 500 mg Capsule, Extended Release 1,500 mg PO QAM RF: 0 aspirin 81 mg Tablet,Chewable 81 mg PO DAILY RF: 0 ranitidine HCl 150 mg Capsule 150 mg PO BID RF: 0 metoprolol succinate 25 mg Tablet Extended Release 24 Hr 37.5 mg PO BID RF: 0 multivitamin Capsule 1 cap PO DAILY RF: 0 atorvastatin 40 mg Tablet 40 mg PO DAILY RF: 0 isosorbide mononitrate 30 mg Tablet Extended Release 24 Hr 30 mg PO DAILY RF: 0 ascorbic acid (vitamin C) 1,000 mg Tablet Extended Release 1,000 mg PO Q12H RF: 0 furosemide 20 mg Tablet 20 mg PO DAILY RF: 0 benazepril 10 mg Tablet 10 mg PO BID RF: 0 eplerenone 25 mg Tablet 25 mg PO DAILY RF: 0 Referrals: Carrie Garcia MD [Primary Care Provider] -
[2020-04-16 08:40] LABS: Add Manual Diff / Slide Review NO; Basophils Absolute Auto 0 /uL (0-100); Basophils Percent Auto 0.3 % (0-2); Eosinophils Absolute Auto 100 /uL (0-450); Eosinophils Percent Auto 1.4 % (2-4); Hematocrit 39.1 % (41-53); Hemoglobin 12.9 g/dL (13.5-17.5); Lymphocytes Absolute Auto 3100 /uL (1100-4500); Lymphocytes Percent Auto 58.8 % (25-40); Mean Corpuscular HGB Conc 32.8 % (30-36); Mean Corpuscular Hemoglobin 30.4 PG (26-34); Mean Corpuscular Volume 92.4 fL (80-100); Monocytes Absolute Auto 200 /uL (0-900); Monocytes Percent Auto 4.5 % (3-14); Neutrophils Absolute Auto 1800 /uL (1500-7000); Platelet Count 134 X10^3/uL (150-400); Red Blood Cell Count 4.23 X10^6/uL (4.5-5.9); Red Cell Distribution Width 14.7 % (11.6-14.8); White Blood Cell Count 5.2 X10^3/uL (4.5-11.0)
[2020-04-16 08:46] LABS: INR 1.2 (0.9-1.3); Prothrombin Time 13.9 SECONDS (10.1-12.7)
[2020-04-16 08:49] LABS: PTT Partial Thromboplastin Tim 31 SECONDS (26.4-36.2)
[2020-04-16 08:53] LABS: Alanine Aminotransferase 21 IU/L (<50); Albumin 4.5 g/dL (3.5-5.0); Albumin Globulin Ratio 1.6 (1.0-2.8); Alkaline Phosphatase 97 U/L (38-126); Aspartate Aminotransferase 34 IU/L (17-59); Bilirubin Total 0.5 mg/dL (0.2-1.3); Blood Urea Nitrogen 31 mg/dL (9-20); Calcium 9.1 mg/dL (8.4-10.2); Carbon Dioxide 30 mmol/L (22-32); Chloride 102 mmol/L (98-107); Creatine Kinase 68 U/L (55-170); Estimated Glomerular Filt Rate 53.9 mL/min (>60); Globulin 2.8 g/dL (1.7-4.1); Glucose 166 mg/dL (80-110); HEMOLYSIS < 15 (0-50); Lipase 463 U/L (23-300); Magnesium 1.9 mg/dL (1.6-2.3); Potassium 4.8 mmol/L (3.4-5.1); Sodium 138 mmol/L (137-145); Total Protein 7.3 g/dL (6.3-8.2)
[2020-04-16 09:05] LABS: NT-proBNP (BNP-Adult 18+) 516 pg/mL (<450); Troponin I < 0.012 ng/mL (0.01-0.034)
[2020-04-16 09:06] LABS: Procalcitonin < 0.05 ng/mL (<0.5)
[2020-04-16] MEDS: SODIUM CHLORIDE 0.9% 1,000 ML 125 ML IV (09:25)
[2020-04-16 09:55] LABS: COVID19 -Nasal RAPID Negative (Negative)
--- NOTE | 2020-04-16 10:20 | PC.NURSE ---
[employer] tech Gold Larson reports making adjustments to Pt's pacer, informs Nupur of same.
== END 2020-04-16 11:00 | disposition home or self-care (01) ==
PROVIDERS: Emergency Provider Emergency Medicine; PCP Internal Medicine
DX: I47.2 Ventricular tachycardia (principal); R42 Dizziness and giddiness; I25.10 Atherosclerotic heart disease of native coronary artery without angina pectoris; Z95.0 Presence of cardiac pacemaker
CPT/HCPCS: 36415; 71045; 80053; 82550; 83690; 83735; 83880; 84145; 84484; 85025; 85610; 85730; 87635; 93005; 94770; 96360; 99284

== ENCOUNTER → 2020-05-16 09:58 | Outpatient (CLI) | payer MEDICARE, SELFPAY ==
--- NOTE | 2020-05-16 11:29 | DIET.PN ---
Diabetes: Healthy Eating 1 Intervention: ? Discussed pathophysiology of diabetes and impact of nutrition/diet on blood sugar control.? Discussed fed versus non-fed state.?? ? Reviewed importance of Balance, Variety, and Moderation. ? Discussed the effect of carbohydrates/protein/fat on blood sugar control.? ? Stressed importance of consistent carbohydrate intake at each meal and provided instructions for recommended servings/portions of carbohydrates/protein per meal. Provided educational material. ? Reviewed carbohydrate counting and measuring carbohydrate content via serving sizes and reading nutrition labels.? Provided handouts.?? ? Discussed the difference between simple versus complex carbohydrates and the effect of fiber on blood sugar control.? Discussed various methods to increase fiber content in diet. ? Discussed the plate method for creating more carbohydrate conscious balanced meals. ? Stressed importance of meal timing and not going >4-5 hours between meals. Encouraged adding protein to evening snack to support glucose control overnight. ? Discussed importance of making dietary habits part of lifestyle change.
== END ==
PROVIDERS: PCP Internal Medicine; Referring Provider Internal Medicine; Visit Provider Internal Medicine
DX: E11.9 Type 2 diabetes mellitus without complications (principal); Z71.3 Dietary counseling and surveillance
CPT/HCPCS: G0109

== ENCOUNTER → 2020-05-21 13:59 | Outpatient (CLI) | payer MEDICARE, SELFPAY ==
--- NOTE | 2020-05-21 15:38 | DIET.PN ---
Diabetes: Healthy Eating 2 Intervention: Fats effects on glucose, weight, heart disease, cholesterol Sat Vs Unsat Protein- animal and plant based options Low, med, high fat meats Sugar substitutes Sodium Health claims Grocery shopping guidelines Eating away from home Alcohol Sick day guidelines Ketone Testing
== END ==
PROVIDERS: PCP Internal Medicine; Referring Provider Internal Medicine; Visit Provider Internal Medicine
DX: E11.9 Type 2 diabetes mellitus without complications (principal); Z71.3 Dietary counseling and surveillance
CPT/HCPCS: G0109

== ENCOUNTER → 2020-06-26 09:51 | Outpatient (CLI) | payer MEDICARE, SELFPAY ==
--- NOTE | 2020-06-26 10:40 | DIET.PN ---
DIABETES Nutrition Initial Assessment:? ASSESS:?? Mr. Lawrence is a 79 yom??referred for type 2 diabetes seen as part of DSME program. He has been cutting down on sweets and portion sizes over the last few months and continuing to walk daily. He reports he was losing weight, but feels he has plateaued. Continues to monitor his fasting blood sugar with normal ranges. ??? LABS: Per pt report:? A1c: 8.1 ? MEDS:?? metf: 1000mg pm ? DIET: Per 24-hour recall:? B: oatmeal, apples, flaxseed, cinnamon; eggs w/ lam bits, toast w/ jam L: cabbage soup w/ milk, ritz D: cereal w/ milk or peanuts Sn: thins (cookie treat) Eating Out: rarely Changes in Appetite: same Nutrition Supplements: cinnamon ? Weight: 184lb Height: 69 in BMI: ? 27 ? Exercise:? walking 2-4 miles daily NUTRITION DX 1. Altered Nutrition related labs related to impaired glucose metabolism, lack of previous exposure to accurate nutrition information as evidenced by pt report, dx of diabetes, previous diet high in refined carbohydrates.? INTERVENTION(s): 1. Reviewed pathophysiology of diabetes and impact of nutrition/diet on blood sugar control.? Discussed fed versus non-fed state.?? 2. Stressed importance of consistent carbohydrate intake at each meal and provided instructions for recommended servings/portions of carbohydrates/protein per meal. 3. Reviewed carbohydrate counting and measuring carbohydrate content via serving sizes and reading nutrition labels.? 4. Stressed importance of meal timing and not going >4-5 hours between meals. Encouraged adding protein to evening snack to support glucose control overnight. Patient agreeable. 5. Discussed healthy weight loss goals of 1-2lbs per week through diet and exercise.? Pt agreeable to walking at least 30 minutes daily. 6. Recommend monitoring fasting and alternating 2 hr PP mealtime glucose. MONITOR/EVALUATE: Anticipate good compliance.? Follow up to review new labs.
[2020-06-26 10:41] VITALS: BMI 27.3
== END ==
PROVIDERS: PCP Internal Medicine; Referring Provider Internal Medicine; Visit Provider Internal Medicine
DX: E11.9 Type 2 diabetes mellitus without complications (principal); Z79.84 Long term (current) use of oral hypoglycemic drugs
CPT/HCPCS: G0109

== ENCOUNTER → 2020-10-04 07:13 | Outpatient (CLI) | payer MEDICARE, SELFPAY ==
[2020-10-04 07:59] LABS: Alanine Aminotransferase 20 IU/L (<50); Albumin 4.5 g/dL (3.5-5.0); Albumin Globulin Ratio 1.8 (1.0-2.8); Alkaline Phosphatase 78 U/L (38-126); Aspartate Aminotransferase 32 IU/L (17-59); Bilirubin Total 0.4 mg/dL (0.2-1.3); Blood Urea Nitrogen 29 mg/dL (9-20); Calcium 9.6 mg/dL (8.4-10.2); Carbon Dioxide 27 mmol/L (22-32); Chloride 101 mmol/L (98-107); Cholesterol 94 mg/dL (140-199); Estimated Glomerular Filt Rate 55.2 mL/min (>60); Globulin 2.5 g/dL (1.7-4.1); Glucose 119 mg/dL (80-110); HDL Cholesterol 22 mg/dL (40-60); HEMOLYSIS < 15 (0-50); LDL Cholesterol Calculated 51 mg/dL (<100); Potassium 4.8 mmol/L (3.4-5.1); Sodium 137 mmol/L (137-145); Triglycerides 104 mg/dL (35-150)
== END ==
PROVIDERS: PCP Internal Medicine; Referring Provider Internal Medicine; Visit Provider Internal Medicine Cardiovascular Disease
DX: I10 Essential (primary) hypertension (principal); E78.5 Hyperlipidemia, unspecified
CPT/HCPCS: 36415; 80053; 80061

== ENCOUNTER → 2020-10-18 07:14 | Outpatient (CLI) | payer MEDICARE, SELFPAY ==
[2020-10-18 08:31] LABS: BUN Creatinine Ratio 22.1 (6-22); Blood Urea Nitrogen 25 mg/dL (9-20); Calcium 9.9 mg/dL (8.4-10.2); Carbon Dioxide 29 mmol/L (22-32); Chloride 100 mmol/L (98-107); Estimated Glomerular Filt Rate > 60.0 mL/min (>60); Glucose 108 mg/dL (80-110); HEMOLYSIS < 15 (0-50); Magnesium 1.8 mg/dL (1.6-2.3); Potassium 4.8 mmol/L (3.4-5.1); Sodium 138 mmol/L (137-145)
[2020-10-18 08:58] LABS: Thyroid Stimulating Hormone 10.2 uIU/mL (0.47-4.68)
== END ==
PROVIDERS: PCP Internal Medicine; Referring Provider Internal Medicine Cardiovascular Disease; Visit Provider Internal Medicine Cardiovascular Disease
DX: I10 Essential (primary) hypertension (principal); I47.2 Ventricular tachycardia
CPT/HCPCS: 36415; 80048; 83735; 84443

== ENCOUNTER → 2020-10-22 19:19 | Outpatient (ROUT) | payer MEDICARE, SELFPAY ==
[2020-10-22 20:44] LABS: TSH w/ Reflex to FT4 9.23 uIU/mL (0.47-4.68)
== END ==
PROVIDERS: PCP Internal Medicine; Visit Provider Internal Medicine
DX: E03.9 Hypothyroidism, unspecified (principal)
CPT/HCPCS: 84439; 84443

== ENCOUNTER 2020-12-19 16:43 | Emergency (ER) | payer MEDICARE, SELFPAY ==
[2020-12-19] VITALS (12 sets, daily range): BP systolic 107–135; BP diastolic 56–61; PULSE 59–66; RESP 18–22; TEMP 36.6; O2SAT 95–97; BMI 27.3
[2020-12-19 17:39] LABS: Add Manual Diff / Slide Review NO; Basophils Absolute Auto 0 /uL (0-100); Basophils Percent Auto 0.3 % (0-2); Eosinophils Absolute Auto 100 /uL (0-450); Eosinophils Percent Auto 1.7 % (2-4); Hematocrit 36.5 % (41-53); Hemoglobin 12.1 g/dL (13.5-17.5); Lymphocytes Absolute Auto 2100 /uL (1100-4500); Lymphocytes Percent Auto 55.4 % (25-40); Mean Corpuscular HGB Conc 33.1 % (30-36); Mean Corpuscular Hemoglobin 30.4 PG (26-34); Mean Corpuscular Volume 91.9 fL (80-100); Monocytes Absolute Auto 200 /uL (0-900); Monocytes Percent Auto 5.1 % (3-14); Neutrophils Absolute Auto 1400 /uL (1500-7000); Neutrophils Percent Auto 37.5 % (50-75); Platelet Count 135 X10^3/uL (150-400); Red Blood Cell Count 3.98 X10^6/uL (4.5-5.9); Red Cell Distribution Width 14.4 % (11.6-14.8); White Blood Cell Count 3.8 X10^3/uL (4.5-11.0)
[2020-12-19 17:45] LABS: Magnesium 1.9 mg/dL (1.6-2.3)
[2020-12-19 17:46] LABS: Alanine Aminotransferase 21 IU/L (<50); Albumin 4.3 g/dL (3.5-5.0); Albumin Globulin Ratio 1.7 (1.0-2.8); Alkaline Phosphatase 77 U/L (38-126); Aspartate Aminotransferase 28 IU/L (17-59); BUN Creatinine Ratio 26.9 (6-22); Bilirubin Total 0.4 mg/dL (0.2-1.3); Blood Urea Nitrogen 29 mg/dL (9-20); Calcium 9.2 mg/dL (8.4-10.2); Carbon Dioxide 25 mmol/L (22-32); Chloride 105 mmol/L (98-107); Estimated Glomerular Filt Rate > 60.0 mL/min (>60); Globulin 2.5 g/dL (1.7-4.1); Glucose 132 mg/dL (80-110); HEMOLYSIS < 15 (0-50); Lipase 130 U/L (23-300); Potassium 4.7 mmol/L (3.4-5.1); Sodium 139 mmol/L (137-145); Total Protein 6.8 g/dL (6.3-8.2)
--- NOTE | 2020-12-19 18:29 | ED.ARRPALP ---
HPI - Arrhythmia/Palpitations General Chief Complaint: Arrhythmia/Palpitations Stated Complaint: Heart Issue, Irregular Heartbeat Time Seen by Provider: 12/19/20 17:02 Source: patient Mode of arrival: Ambulatory Limitations: no limitations History of Present Illness HPI narrative: 80M former smoker with extensive cardiac history dating back 40 years including a [address] bypass, hypertension, hyperlipidemia, arrhythmia is resulting in the placement of a pacemaker/AICD about 5 years ago. His primary template checker is Dr. Spring and Dr. Jordan is his clinical data management director. Patient presents today with his in the chief complaint of multiple episodes of palpitations over the past day and a half or so. He denies any chest pain but does occasionally feel a bit lightheaded. Most of his episodes are rather brief and fleeting but he did have a defibrillator discharge this afternoon which is the 1st time this has happened. He denies any other symptoms such as fever chills nor nausea, vomiting or diarrhea. He denies any recent changes in his medications. Related Data Home Medications Medication Instructions Recorded Confirmed aspirin 81 mg chewable tablet 81 mg PO DAILY 05/11/18 08/17/19 metoprolol succinate 25 mg 37.5 mg PO BID 05/11/18 08/17/19 tablet,extended release 24 hr multivitamin 1 cap PO DAILY 05/11/18 08/17/19 niacin 500 mg capsule,extended 1,500 mg PO QAM 05/11/18 08/17/19 release ranitidine HCl 150 mg capsule 150 mg PO BID 05/11/18 08/17/19 tamsulosin 0.4 mg capsule (Flomax) 0.4 mg PO BID 05/11/18 08/17/19 ascorbic acid (vitamin C) 1,000 mg 1,000 mg PO Q12H 05/16/19 08/17/19 tablet,extended release atorvastatin 40 mg tablet 40 mg PO DAILY 05/16/19 08/17/19 benazepril 10 mg tablet 10 mg PO BID 05/16/19 08/17/19 eplerenone 25 mg tablet 25 mg PO DAILY 05/16/19 08/17/19 furosemide 20 mg tablet 20 mg PO DAILY 05/16/19 08/17/19 isosorbide mononitrate 30 mg 30 mg PO DAILY 05/16/19 08/17/19 tablet,extended release 24 hr Previous Rx's Medication Instructions Recorded metoprolol succinate 50 mg 50 mg PO BID #30 tab 12/19/20 tablet,extended release 24 hr Allergies Allergy/AdvReac Type Severity Reaction Status Date / Time No Known Drug Allergies Allergy Verified 12/19/20 17:35 Review of Systems Review of Systems Narrative: GENERAL: Denies chills, fatigue, malaise, fever, sweats. HEENT: Denies sinus pain, ear pain, sore throat, difficulty swallowing, dizziness. RESPIRATORY: Denies dyspnea, cough, wheezing, hemoptysis, sputum. CARDIOVASCULAR: See HPI GASTROINTESTINAL: Denies nausea, vomiting, abdominal pain, diarrhea, constipation, melena. : Denies dysuria, frequency, incontinence, hematuria, urinary retention. MUSCULOSKELETAL: denies weakness, joint pain, or bony pain SKIN: Denies rash, skin lesions, or other NEUROLOGIC: Denies weakness, headache, numbness, change in speech, confusion, seizures, incoordination. PSYCHIATRIC: No concerning psychosocial issues. 12 point review of systems is negative except for those stated above Patient History Medical History (Updated 12/19/20 @ 19:56 by Otoniel Ruth DO) Congestive heart failure Coronary artery disease Thrombocytopenia Family History Father Heart disease Social History Smoking Status: Former smoker eating out: rarely or never Type(s) of exercise: walking Smoking Status: Former smoker alcohol intake frequency: holidays/special occasions only Substance Use Type: does not use Exam Narrative Exam Narrative: GENERAL: [80] year old patient appears stated age. Well-developed patient, in mild distress. HEAD: Atraumatic. Normocephalic. EYES: Pupils equal round and reactive. Extraocular motions intact. No scleral icterus. No injection or drainage. ENT: Nose without bleeding, purulent drainage. Throat without erythema, tonsillar hypertrophy or exudate. Airway patent. NECK: Trachea midline. Non tender CARDIOVASCULAR: Regular rate and rhythm without murmurs, gallops, or rubs. RESPIRATORY: Clear to auscultation. Breath sounds equal bilaterally. No wheezes, rales, or rhonchi. GASTROINTESTINAL: Abdomen soft, non-tender, nondistended. EXTREMITIES: No edema or joint tenderness. BACK: Nontender without deformity or crepitance. No flank tenderness. NEURO: AOx3. SKIN: No rash or erythema of visible areas Initial Vital Signs Initial Vital Signs: Vital Signs Pulse Rate 64 12/19/20 17:13 Respiratory Rate 21 12/19/20 17:13 Blood Pressure 135/60 12/19/20 17:13 Pulse Oximetry 97 12/19/20 17:13 Course Course Course Narrative: Patient has had a handful of episodes while here in the department, most recently just a few minutes ago which lasted 8 beats Orders Ordered: ED Orders 12/19/20 17:03 EKG-12 Lead Stat 12/19/20 17:24 Complete Blood Count AUTO DIFF Stat Comprehensive Metabolic Panel Stat Lipase Stat Magnesium Stat Troponin & CK Cardiac Panel Stat Discontinued Medications Amiodarone HCl/Dextrose (Nexterone) 150 mg in 100 mls @ 600 mls/hr IV NOW ONE; Protocol Stop: 12/19/20 19:07 Last Infusion: 12/19/20 19:35 Dose: 0 mls/hr Documented by: Admin: 12/19/20 19:14 Dose: 600 mls/hr Documented by: LING Consultations Consultation #1: Dr. Vu carney. After lengthy discussion of patient's case recommendation is to give amiodarone load here, instruct patient to change metoprolol dosing from 37.5 b.i.d. to 50 mg b.i.d. and follow up close with the group. Vital Signs Vital signs: Vital Signs - 8 hr 12/19/20 17:30 12/19/20 17:35 12/19/20 18:00 Temperature 97.9 F Pulse Rate 64 66 60 Respiratory Rate 22 18 19 Blood Pressure 114/57 L 114/57 L 123/60 Pulse Oximetry 96 97 96 12/19/20 18:31 12/19/20 19:00 12/19/20 19:02 Temperature Pulse Rate 59 L 60 60 Respiratory Rate 20 18 18 Blood Pressure 113/58 L 131/61 131/61 Pulse Oximetry 95 96 97 12/19/20 19:21 12/19/20 19:30 12/19/20 19:42 Temperature Pulse Rate 59 L 60 59 L Respiratory Rate 19 20 21 Blood Pressure 134/59 L 107/56 L 119/57 L Pulse Oximetry 96 97 96 12/19/20 19:50 12/19/20 20:00 Temperature Pulse Rate 59 L 59 L Respiratory Rate 20 21 Blood Pressure 118/59 L 112/56 L Pulse Oximetry 96 96 MDM - Arrhythmia/Palpitations Lab Data Result diagrams: 12/19/20 17:24 12/19/20 17:24 Labs: Lab Results 12/19/20 12/19/20 12/19/20 Range/Units 17:24 17:24 17:24 WBC 3.8 L (4.5-11.0) X10^3/uL RBC 3.98 L (4.5-5.9) X10^6/uL Hgb 12.1 L (13.5-17.5) g/dL Hct 36.5 L (41-53) % MCV 91.9 (80-100) fL MCH 30.4 (26-34) PG MCHC 33.1 (30-36) % RDW 14.4 (11.6-14.8) % Plt Count 135 L (150-400) X10^3/uL Neut % (Auto) 37.5 L (50-75) % Lymph % (Auto) 55.4 H (25-40) % [place] % (Auto) 5.1 (3-14) % Eos % (Auto) 1.7 L (2-4) % Baso % (Auto) 0.3 (0-2) % Neut # (Auto) 1400 L (7009-2624) /uL Lymph # (Auto) 2100 (5206-5366) /uL [place] # (Auto) 200 (0-900) /uL Eos # (Auto) 100 (0-450) /uL Baso # (Auto) 0 (0-100) /uL Sodium 139 (137-145) mmol/L Potassium 4.7 (3.4-5.1) mmol/L Chloride 105 (98-107) mmol/L Carbon Dioxide 25 (22-32) mmol/L BUN 29 H (9-20) mg/dL Creatinine 1.08 (0.66-1.25) mg/dL Estimated GFR > 60.0 (>60) mL/min BUN/Creatinine Ratio 26.9 H (6-22) Glucose 132 H (80-110) mg/dL Calcium 9.2 (8.4-10.2) mg/dL Magnesium 1.9 (1.6-2.3) mg/dL Total Bilirubin 0.4 (0.2-1.3) mg/dL AST 28 (17-59) IU/L ALT 21 (<50) IU/L Alkaline Phosphatase 77 (38-126) U/L Total Creatine Kinase (55-170) U/L CK-MB (CK-2) CK-MB (CK-2) Rel Index Troponin I (0.01-0.034) ng/mL Total Protein 6.8 (6.3-8.2) g/dL Albumin 4.3 (3.5-5.0) g/dL Globulin 2.5 (1.7-4.1) g/dL Albumin/Globulin Ratio 1.7 (1.0-2.8) Lipase 130 (23-300) U/L // Range/Units 17:24 WBC (4.5-11.0) X10^3/uL RBC (4.5-5.9) X10^6/uL Hgb (13.5-17.5) g/dL Hct (41-53) % MCV (80-100) fL MCH (26-34) PG MCHC (30-36) % RDW (11.6-14.8) % Plt Count (150-400) X10^3/uL Neut % (Auto) (50-75) % Lymph % (Auto) (25-40) % [place] % (Auto) (3-14) % Eos % (Auto) (2-4) % Baso % (Auto) (0-2) % Neut # (Auto) (1460-4097) /uL Lymph # (Auto) (4458-5663) /uL [place] # (Auto) (0-900) /uL Eos # (Auto) (0-450) /uL Baso # (Auto) (0-100) /uL Sodium (137-145) mmol/L Potassium (3.4-5.1) mmol/L Chloride (98-107) mmol/L Carbon Dioxide (22-32) mmol/L BUN (9-20) mg/dL Creatinine (0.66-1.25) mg/dL Estimated GFR (>60) mL/min BUN/Creatinine Ratio (6-22) Glucose (80-110) mg/dL Calcium (8.4-10.2) mg/dL Magnesium (1.6-2.3) mg/dL Total Bilirubin (0.2-1.3) mg/dL AST (17-59) IU/L ALT (<50) IU/L Alkaline Phosphatase (38-126) U/L Total Creatine Kinase 50 L (55-170) U/L CK-MB (CK-2) TNP CK-MB (CK-2) Rel Index TNP Troponin I < 0.012 (0.01-0.034) ng/mL Total Protein (6.3-8.2) g/dL Albumin (3.5-5.0) g/dL Globulin (1.7-4.1) g/dL Albumin/Globulin Ratio (1.0-2.8) Lipase (23-300) U/L MDM Narrative Medical decision making narrative: Patient with a day and a half of multiple episodes of palpitations, interrogated pacemaker notes upwards of 96 episodes of V-tach that at all resolved except for the 1 which was abated by the AICD. Labs are unremarkable and patient is largely asymptomatic. Per discussion with cardiology patient will receive amiodarone load and changing in routine dosing of beta-blockers and follow-up closely. Return precautions given and questions answered to his apparent satisfaction Discharge Plan Departure Patient Disposition: Home Clinical Impression: V tach Instructions: DI for Ventricular Tachycardia Activity Restrictions/Additional Instructions: *You have been diagnosed with [ventricular tachycardia with AICD discharge ] *What to do: *Please increased your Metoprolol from 37.5mg twice daily to 50mg twice daily. Otherwise please continue to take your regular medications as directed. [ ] New medication prescriptions sent to your pharmacy: [ ] [ ] New medication written as a paper prescription [ ] No new medications given *Please follow up with your template checker in 2-3 days, call for an appointment. Let them know you were seen in the Emergency Department and that we ask that you be seen in follow up. We will electronically transmit a record of today's note if your PCP is in our system *Return to Emergency Department if you should have any new, worsening or concerning symptoms, such as [fever greater than 101 F, shaking chills, worsening pain, persistent vomiting or other bothersome symptoms] Prescriptions: New metoprolol succinate 50 mg tablet extended release 24 hr 50 mg PO BID Qty: 30 RF: 0 No Action tamsulosin [Flomax] 0.4 mg Capsule 0.4 mg PO BID RF: 0 niacin 500 mg Capsule, Extended Release 1,500 mg PO QAM RF: 0 aspirin 81 mg Tablet,Chewable 81 mg PO DAILY RF: 0 ranitidine HCl 150 mg Capsule 150 mg PO BID RF: 0 metoprolol succinate 25 mg Tablet Extended Release 24 Hr 37.5 mg PO BID RF: 0 multivitamin Capsule 1 cap PO DAILY RF: 0 atorvastatin 40 mg Tablet 40 mg PO DAILY RF: 0 isosorbide mononitrate 30 mg Tablet Extended Release 24 Hr 30 mg PO DAILY RF: 0 ascorbic acid (vitamin C) 1,000 mg Tablet Extended Release 1,000 mg PO Q12H RF: 0 furosemide 20 mg Tablet 20 mg PO DAILY RF: 0 benazepril 10 mg Tablet 10 mg PO BID RF: 0 eplerenone 25 mg Tablet 25 mg PO DAILY RF: 0 Referrals: Carrie Garcia MD [Primary Care Provider] -
[2020-12-19 18:44] LABS: Creatine Kinase 50 U/L (55-170)
[2020-12-19 18:57] LABS: Troponin I < 0.012 ng/mL (0.01-0.034)
[2020-12-19] MEDS: AMIODARONE 150 MG/100 ML PIGGYBACK 600 MG IV (19:14)
== END 2020-12-19 20:10 | disposition home or self-care (01) ==
PROVIDERS: Emergency Medicine; Emergency Provider Emergency Medicine; PCP Internal Medicine
DX: I47.2 Ventricular tachycardia (principal); R42 Dizziness and giddiness
CPT/HCPCS: 36415; 80053; 82550; 83690; 83735; 84484; 85025; 93005; 93010; 96365; 99284; J0282

== ENCOUNTER 2020-12-20 19:01 | Observation (INO) | payer MEDICARE, SELFPAY ==
[2020-12-20] VITALS (18 sets, daily range): BP systolic 111–138; BP diastolic 55–68; PULSE 59–78; RESP 17–22; TEMP 36.8; O2SAT 96–98; BMI 27.3
--- NOTE | 2020-12-20 19:07 | DI.RAD.S_ITS ---
PROCEDURE: XR CHEST 1V INDICATIONS: chest pain TECHNIQUE: One view of the chest was acquired. COMPARISON: [facility], CR, XR CHEST 1V, 04/16/2020, 8:35. FINDINGS: Surgical changes and devices: Left chest wall pacemaker leads are seen in the region of right atrium, right ventricle and left ventricle. Median sternotomy wires and surgical clips are again seen. Lungs and pleura: Lungs are clear. No pleural effusions or pneumothorax. Mediastinum: Mediastinal contours appear normal. Heart size is enlarged. Bones and chest wall: No suspicious bony lesions. Overlying soft tissues appear unremarkable. IMPRESSION: No acute cardiopulmonary pathology. Dictated by: Swapnil Arnold M.D. on 12/20/2020 at 19:29 Approved by: Swapnil Arnold M.D. on 12/20/2020 at 19:30
[2020-12-20 19:24] LABS: Add Manual Diff / Slide Review NO; Basophils Absolute Auto 0 /uL (0-100); Basophils Percent Auto 0.4 % (0-2); Eosinophils Absolute Auto 0 /uL (0-450); Eosinophils Percent Auto 1.1 % (2-4); Hematocrit 37.6 % (41-53); Hemoglobin 12.5 g/dL (13.5-17.5); Lymphocytes Absolute Auto 2300 /uL (1100-4500); Lymphocytes Percent Auto 57.2 % (25-40); Mean Corpuscular HGB Conc 33.3 % (30-36); Mean Corpuscular Hemoglobin 30.6 PG (26-34); Mean Corpuscular Volume 91.8 fL (80-100); Monocytes Absolute Auto 200 /uL (0-900); Monocytes Percent Auto 4.5 % (3-14); Neutrophils Absolute Auto 1500 /uL (1500-7000); Neutrophils Percent Auto 36.8 % (50-75); Platelet Count 138 X10^3/uL (150-400); Red Cell Distribution Width 14.4 % (11.6-14.8)
[2020-12-20 19:31] LABS: INR 1.3 (0.9-1.3)
[2020-12-20 19:33] LABS: PTT Partial Thromboplastin Tim 30 SECONDS (26.4-36.2)
[2020-12-20 19:35] LABS: Alanine Aminotransferase 22 IU/L (<50); Albumin 4.5 g/dL (3.5-5.0); Albumin Globulin Ratio 1.8 (1.0-2.8); Alkaline Phosphatase 83 U/L (38-126); Aspartate Aminotransferase 30 IU/L (17-59); BUN Creatinine Ratio 27.9 (6-22); Bilirubin Total 0.4 mg/dL (0.2-1.3); Blood Urea Nitrogen 29 mg/dL (9-20); Calcium 9.6 mg/dL (8.4-10.2); Carbon Dioxide 25 mmol/L (22-32); Chloride 106 mmol/L (98-107); Creatine Kinase 54 U/L (55-170); Estimated Glomerular Filt Rate > 60.0 mL/min (>60); Globulin 2.5 g/dL (1.7-4.1); Glucose 129 mg/dL (80-110); HEMOLYSIS 20 (0-50); Lipase 124 U/L (23-300); Magnesium 2.1 mg/dL (1.6-2.3); Potassium 4.7 mmol/L (3.4-5.1); Sodium 140 mmol/L (137-145)
[2020-12-20 19:47] LABS: Troponin I < 0.012 ng/mL (0.01-0.034)
--- NOTE | 2020-12-20 20:00 | ED.ARRPALP ---
HPI - Arrhythmia/Palpitations General Chief Complaint: Arrhythmia/Palpitations Stated Complaint: Tachy Time Seen by Provider: 12/20/20 19:48 Source: patient Mode of arrival: Family Vehicle Limitations: no limitations History of Present Illness HPI narrative: 80-year-old gentleman with history of ischemic cardiomyopathy with pacer defibrillator in place, hyperlipidemia, hypertension, congestive heart failure, hypothyroidism presents with 2 days of multiple episodes of ventricular tachycardia. He was seen in the emergency room yesterday and pacer interrogation indicated 95 episodes of ventricular tachycardia 1 of which was treated with cardioversion and the other were either self terminated or paced back to a regular rhythm. Workup yesterday was unremarkable and decision was made to have her go home or outpatient. Today he had over 80 episodes of ventricular tachycardia all either self limiting or being paced out of them. He did not receive a shock today. He has otherwise been feeling well. She notes that with some of the episodes of ventricular tachycardia he gets a bit dizzy but no fevers, cough, chills, abdominal pain, vomiting, diarrhea. He describes no orthopnea, exertional dyspnea or dyspnea at rest. Related Data Home Medications Medication Instructions Recorded Confirmed aspirin 81 mg chewable tablet 81 mg PO DAILY 05/11/18 12/21/20 multivitamin 1 cap PO DAILY 05/11/18 12/21/20 tamsulosin 0.4 mg capsule (Flomax) 0.4 mg PO BID 05/11/18 12/21/20 ascorbic acid (vitamin C) 1,000 mg 1,000 mg PO Q12H 05/16/19 12/21/20 tablet,extended release atorvastatin 40 mg tablet 40 mg PO DAILY 05/16/19 12/21/20 benazepril 10 mg tablet 10 mg PO BID 05/16/19 12/21/20 eplerenone 25 mg tablet 25 mg PO DAILY 05/16/19 12/21/20 furosemide 20 mg tablet 20 mg PO DAILY 05/16/19 12/21/20 levothyroxine 25 mcg tablet 25 mcg PO DAILY 12/21/20 12/21/20 Previous Rx's Medication Instructions Recorded metoprolol succinate 50 mg 50 mg PO BID #30 tab 12/19/20 tablet,extended release 24 hr Allergies Allergy/AdvReac Type Severity Reaction Status Date / Time No Known Drug Allergies Allergy Verified 12/19/20 17:35 Review of Systems Review of Systems Narrative: Remainder of complete review of systems is otherwise unremarkable except for that included in the HPI. Patient History Medical History BPH (benign prostatic hyperplasia) Congestive heart failure Coronary artery disease CPAP (continuous positive airway pressure) dependence Essential hypertension Hyperlipidemia Obstructive sleep apnea Thrombocytopenia Surgical History History of automatic internal cardiac defibrillator (AICD) History of heart bypass surgery Family History Father Heart disease Mother Hypertension Social History household members: spouse Smoking Status: Former smoker eating out: rarely or never Type(s) of exercise: walking Smoking Status: Former smoker alcohol intake frequency: holidays/special occasions only Substance Use Type: does not use Exam Narrative Exam Narrative: General: Healthy appearing, in no acute distress. Able to give a complete and coherent history. Well-nourished well-developed HEENT: Moist mucous membranes, normal sclera with reactive pupils, Neck: No JVD, supple Respiratory: Lungs are clear to auscultation, no wheezing no rales no rhonchi. Full and symmetrical air movement Cardiac: Regular rate and rhythm no murmurs no bruits Abdomen: Soft, nontender, good bowel tones, no flank pain Skin: Warm and dry, no rashes Neurologic: Grossly neurologically intact with no obvious asymmetries or abnormalities Extremities: No trauma, well perfused Psych: Cooperative, appropriate insight and affect Initial Vital Signs Initial Vital Signs: Vital Signs Temperature 98.3 F 12/20/20 19:08 Pulse Rate 78 12/20/20 19:08 Respiratory Rate 19 12/20/20 19:08 Blood Pressure 111/60 12/20/20 19:08 Pulse Oximetry 98 12/20/20 19:08 Course Course Course Narrative: 830pm reviewed with Dr. Wallace. Recommended IV amiodarone load with hospitalization and then converting to oral amiodarone 918pm Reviewed with Ms. Taylor, [facility] Orders Ordered: ED Orders 12/20/20 21:26 COVID19 - ADMIT (COMMUNICATIONS PROJECT MANAGER swab/PCR) Stat 12/20/20 21:39 Education, smoking cessation ONGOING 12/21/20 04:55 Basic Metabolic Panel Routine Complete Blood Count AUTO DIFF DAILY Magnesium DAILY NT-proBNP (BNP-Adult 18+) Routine Prothrombin Time INR DAILY 12/22/20 05:00 Complete Blood Count AUTO DIFF DAILY Magnesium DAILY 12/23/20 05:00 Complete Blood Count AUTO DIFF DAILY Magnesium DAILY Acetaminophen (Acetaminophen 325 Mg Tablet) 650 mg PO Q6HR PRN PRN Reason: Pain, Mild (1-3) or fever Aspirin (Aspirin 81 Mg Chew Tab) 81 mg PO DAILY [facility] Atorvastatin Calcium (Atorvastatin 20 Mg Tablet) 40 mg PO BEDTIME BRUNO Bisacodyl (Bisacodyl 5 Mg Tablet) 10 mg PO DAILY PRN PRN Reason: Constipation Enoxaparin Sodium (Enoxaparin 40 Mg/0.4 Ml Syringe) 40 mg SUBCUT DAILY [facility] Eplerenone (Eplerenone 25 Mg Tablet) 25 mg PO DAILY [facility] Furosemide (Furosemide 20 Mg Tablet) 20 mg PO DAILY [facility] Amiodarone HCl/Dextrose (Nexterone) 360 mg in 200 mls @ 16.7 mls/hr IV CONT BRUNO; Protocol Stop: 12/21/20 15:29 Last Admin: 12/21/20 03:06 Dose: 16.7 ml/hr, 16.7 mls/hr Documented by: SSARDEL Levothyroxine Sodium (Levothyroxine 25 Mcg Tablet) 25 mcg PO 0600 [facility] Lisinopril (Lisinopril 10 Mg Tablet) 10 mg PO BID [facility] Magnesium Hydroxide (Magnesium Hydroxide 30 Ml Udc) 30 ml PO BID PRN PRN Reason: Dyspepsia Metoprolol Succinate (Metoprolol Er 50 Mg Tablet) 50 mg PO BID [facility] Last Admin: 12/21/20 04:54 Dose: 50 mg Documented by: SSARDEL Naloxone HCl (Naloxone 0.4 Mg/Ml Vial) 0.2 mg IV Q2MIN PRN PRN Reason: Opiate Reversal Naloxone HCl (Naloxone 0.4 Mg/Ml Vial) 0.2 mg IV Q2MIN PRN PRN Reason: Opiate Reversal Sennosides (Sennosides 8.6 Mg Tablet) 17.2 mg PO BEDTIME [facility] Sodium Chloride (Sodium Chloride 0.9% Flush) 10 ml IV PRN PRN PRN Reason: Flush Sodium Chloride (Sodium Chloride 0.9% Flush) 10 ml IV BID BRUNO Tamsulosin HCl (Tamsulosin 0.4 Mg Capsule) 0.4 mg PO BID BRUNO Discontinued Medications Amiodarone HCl/Dextrose (Nexterone) 150 mg in 100 mls @ 600 mls/hr IV NOW ONE; Protocol Stop: 12/20/20 21:10 Last Infusion: 12/20/20 21:28 Dose: 0 mls/hr Documented by: Admin: 12/20/20 21:17 Dose: 600 mls/hr Documented by: [email or web address] Amiodarone HCl/Dextrose (Nexterone) 360 mg in 200 mls @ 33.333 mls/hr IV NOW ONE; Protocol Stop: 12/21/20 03:01 Last Titration: 12/21/20 03:35 Dose: 0 mls/hr Documented by: Titration: 12/21/20 00:33 Dose: 33.33 mls/hr Documented by: Admin: 12/20/20 21:33 Dose: 33.333 ml/hr, 33.33 mls/hr Documented by: [email or web address] Non-Formulary Medication (Benazepril) 10 mg PO BID [facility] Vital Signs Vital signs: Vital Signs - 8 hr 12/20/20 22:15 12/20/20 22:30 12/20/20 22:45 Pulse Rate 60 60 59 L Respiratory Rate 17 19 21 Blood Pressure 132/61 117/59 L 138/65 Pulse Oximetry 97 98 98 12/20/20 23:00 12/20/20 23:01 12/20/20 23:15 Pulse Rate 60 60 60 Respiratory Rate 22 21 20 Blood Pressure 115/66 125/68 Pulse Oximetry 97 98 97 12/20/20 23:30 12/20/20 23:45 Pulse Rate 60 60 Respiratory Rate 19 17 Blood Pressure 128/60 135/60 Pulse Oximetry 97 96 MDM - Arrhythmia/Palpitations Lab Data Result diagrams: 12/21/20 04:55 12/21/20 04:55 Labs: Lab Results 12/20/20 12/20/20 12/20/20 Range/Units 19:14 19:14 19:14 WBC 4.0 L (4.5-11.0) X10^3/uL RBC 4.10 L (4.5-5.9) X10^6/uL Hgb 12.5 L (13.5-17.5) g/dL Hct 37.6 L (41-53) % MCV 91.8 (80-100) fL MCH 30.6 (26-34) PG MCHC 33.3 (30-36) % RDW 14.4 (11.6-14.8) % Plt Count 138 L (150-400) X10^3/uL Neut % (Auto) 36.8 L (50-75) % Lymph % (Auto) 57.2 H (25-40) % [place] % (Auto) 4.5 (3-14) % Eos % (Auto) 1.1 L (2-4) % Baso % (Auto) 0.4 (0-2) % Neut # (Auto) 1500 (8894-0456) /uL Lymph # (Auto) 2300 (6910-5100) /uL [place] # (Auto) 200 (0-900) /uL Eos # (Auto) 0 (0-450) /uL Baso # (Auto) 0 (0-100) /uL PT 15.0 H (10.1-12.7) SECONDS INR 1.3 (0.9-1.3) APTT 30 (26.4-36.2) SECONDS Sodium 140 (137-145) mmol/L Potassium 4.7 (3.4-5.1) mmol/L Chloride 106 (98-107) mmol/L Carbon Dioxide 25 (22-32) mmol/L BUN 29 H (9-20) mg/dL Creatinine 1.04 (0.66-1.25) mg/dL Estimated GFR > 60.0 (>60) mL/min BUN/Creatinine Ratio 27.9 H (6-22) Glucose 129 H (80-110) mg/dL Calcium 9.6 (8.4-10.2) mg/dL Magnesium 2.1 (1.6-2.3) mg/dL Total Bilirubin 0.4 (0.2-1.3) mg/dL AST 30 (17-59) IU/L ALT 22 (<50) IU/L Alkaline Phosphatase 83 (38-126) U/L Total Creatine Kinase 54 L (55-170) U/L CK-MB (CK-2) TNP CK-MB (CK-2) Rel Index TNP Troponin I < 0.012 (0.01-0.034) ng/mL Total Protein 7.0 (6.3-8.2) g/dL Albumin 4.5 (3.5-5.0) g/dL Globulin 2.5 (1.7-4.1) g/dL Albumin/Globulin Ratio 1.8 (1.0-2.8) Lipase 124 (23-300) U/L SARS-CoV-2 (PCR) (Negative) 12/20/20 Range/Units 21:26 WBC (4.5-11.0) X10^3/uL RBC (4.5-5.9) X10^6/uL Hgb (13.5-17.5) g/dL Hct (41-53) % MCV (80-100) fL MCH (26-34) PG MCHC (30-36) % RDW (11.6-14.8) % Plt Count (150-400) X10^3/uL Neut % (Auto) (50-75) % Lymph % (Auto) (25-40) % [place] % (Auto) (3-14) % Eos % (Auto) (2-4) % Baso % (Auto) (0-2) % Neut # (Auto) (1511-8558) /uL Lymph # (Auto) (7084-8467) /uL [place] # (Auto) (0-900) /uL Eos # (Auto) (0-450) /uL Baso # (Auto) (0-100) /uL PT (10.1-12.7) SECONDS INR (0.9-1.3) APTT (26.4-36.2) SECONDS Sodium (137-145) mmol/L Potassium (3.4-5.1) mmol/L Chloride (98-107) mmol/L Carbon Dioxide (22-32) mmol/L BUN (9-20) mg/dL Creatinine (0.66-1.25) mg/dL Estimated GFR (>60) mL/min BUN/Creatinine Ratio (6-22) Glucose (80-110) mg/dL Calcium (8.4-10.2) mg/dL Magnesium (1.6-2.3) mg/dL Total Bilirubin (0.2-1.3) mg/dL AST (17-59) IU/L ALT (<50) IU/L Alkaline Phosphatase (38-126) U/L Total Creatine Kinase (55-170) U/L CK-MB (CK-2) CK-MB (CK-2) Rel Index Troponin I (0.01-0.034) ng/mL Total Protein (6.3-8.2) g/dL Albumin (3.5-5.0) g/dL Globulin (1.7-4.1) g/dL Albumin/Globulin Ratio (1.0-2.8) Lipase (23-300) U/L SARS-CoV-2 (PCR) Negative (Negative) Imaging Data Chest x-ray: Radiologist's Impresson: FINDINGS: Surgical changes and devices: Left chest wall pacemaker leads are seen in the region of right atrium, right ventricle and left ventricle. Median sternotomy wires and surgical clips are again seen. Lungs and pleura: Lungs are clear. No pleural effusions or pneumothorax. Mediastinum: Mediastinal contours appear normal. Heart size is enlarged. Bones and chest wall: No suspicious bony lesions. Overlying soft tissues appear unremarkable. IMPRESSION: No acute cardiopulmonary pathology. Dictated by: Swapnil Arnold M.D. on 12/20/2020 at 19:29 ECG Data Interpretation: AV dual paced rhythm at a rate of 60 MDM Narrative Medical decision making narrative: 80-year-old gentleman with 48 hours now of significant episodes of ventricular tachycardia with fully functioning pacer defibrillator working as intended. With a 2nd day of events and blood work again unremarkable and in discussion with Cardiology, patient is loaded on amiodarone and will need to be evaluated in the hospital. Once amiodarone is loaded and he switched to oral he likely will be able to be discharged and follow-up with Dr. Jordan for consideration of ongoing treatment. Care is discussed with Ms. Taylor, hospitalist HUSSEIN. He will be admitted to the ICU due to the amiodarone drip. He is safe for transfer upstairs Discharge Plan Departure Patient Disposition: Admitted as Observation Clinical Impression: Ventricular tachycardia Admit Date/Time: 12/20/20 23:46 Admit Provider: Shellie Taylor
[2020-12-20] MEDS: AMIODARONE 150 MG/100 ML PIGGYBACK 600 MG IV (21:17)
[2020-12-20] MEDS: AMIODARONE 360 MG/200 ML PIGGYBACK 33.33 MG IV (21:33)
--- NOTE | 2020-12-20 21:49 | P.HP_ITS ---
History of Present Illness History of Present Illness Date Patient Seen: 12/20/20 Time Patient Seen: 21:50 Chief complaint: Tachy Narrative: Patient is a 80 year old male Fer Lawrence a former smoker with extensive cardiac history dating back 40 years including a [address] bypass, hypertension, hyperlipidemia, arrhythmia is resulting in the placement of a pacemaker/AICD a bout 5 years ago. His primary furniture assembler is Dr. Spring and Dr. Jordan is his assayer. Patient presents today with his in the chief complaint of multiple episodes of palpitations over the past day and a half or so. He denies any chest pain but does occasionally feel a bit lightheaded. Most of his episodes are rather brief and fleeting but he did have a defibrillator discharge on 12/19/20 which is the 1st time this has happened which led him to come into the ED. his defibrillator was interrogated and demonstrated 96 episodes of V-tach patient was given of loading dose of amiodarone per Cardiology consult and increased metoprolol to 50 mg b.i.d. and was then released home. Having continued episodes of V-tach patient return to the ED today. He did not have any chest pain or shortness of breath. Did not pass out. Upon arrival patient was feeling somewhat lightheaded but has resolved and is not having chest pain or shortness of breath. He did not pass out. No heada mariela. Not on blood thinners. He denies any other symptoms such as fever chills nor nausea, vomiting or diarrhea. He denies any recent changes in his medications. Upon admit patient's vitals are unremarkable and stable. Patient has a WBC of 4.0, hemoglobin 12.5, HCT 37.6, platelets 138. His chemistries are mostly unremarkable with a BUN of 29 and glucose of 129, magnesium and lipase are within normal limits. Patient's chest x-ray is negative for acute cardiopulmonary processes. EKG demonstrated AV dual-paced rhythm with prolonged AV conduction. Dr. Mejia in the ED consulted with furniture assembler Dr. Wallace recommended patient placed on amiodarone loading dose followed by drip and then changed to oral. An outpatient cardiology follow-up. During admit examination in the ED patient had a 22nd run of V-tach, a quickly resolved and patient was asymptomatic and stable. Patient admitted for uncontrolled stable ventricular tachycardia. Patient History Medical History (Updated 12/21/20 @ 01:03 by TEE Palmer) BPH (benign prostatic hyperplasia) Congestive heart failure Coronary artery disease CPAP (continuous positive airway pressure) dependence Essential hypertension Hyperlipidemia Obstructive sleep apnea Thrombocytopenia Surgical History History of automatic internal cardiac defibrillator (AICD) History of heart bypass surgery Family & Social History Family History (Updated 12/21/20 @ 01:02 by TEE Palmer) Father Heart disease Mother Hypertension Safety & Behavioral: Feels Safe in Current Yes Environment Been Physically Hurt or No Threatened By a Person Tobacco & Substance use: Smoking Status Former smoker alcohol intake frequency holiday/special occasion Substance Use Type does not use Meds Home Medications and Allergies Home Medications Medication Instructions Recorded Confirmed Type aspirin 81 mg chewable tablet 81 mg PO DAILY 05/11/18 12/21/20 History multivitamin 1 cap PO DAILY 05/11/18 12/21/20 History tamsulosin 0.4 mg capsule (Flomax) 0.4 mg PO BID 05/11/18 12/21/20 History ascorbic acid (vitamin C) 1,000 mg 1,000 mg PO Q12H 05/16/19 12/21/20 History tablet,extended release atorvastatin 40 mg tablet 40 mg PO DAILY 05/16/19 12/21/20 History benazepril 10 mg tablet 10 mg PO BID 05/16/19 12/21/20 History eplerenone 25 mg tablet 25 mg PO DAILY 05/16/19 12/21/20 History furosemide 20 mg tablet 20 mg PO DAILY 05/16/19 12/21/20 History metoprolol succinate 50 mg 50 mg PO BID #30 tab 12/19/20 12/21/20 Rx tablet,extended release 24 hr levothyroxine 25 mcg tablet 25 mcg PO DAILY 12/21/20 12/21/20 History Allergies Allergy/AdvReac Type Severity Reaction Status Date / Time No Known Drug Allergies Allergy Verified 12/19/20 17:35 Review of Systems Review of Systems Narrative: All systems reviewed with the patient and are negative except otherwise documented. Exam Vital Signs (past 8 hours): - 12/20/20 19:08 12/20/20 19:43 12/20/20 20:00 Temperature 98.3 F Pulse Rate 78 60 60 Respiratory Rate 19 20 20 Blood Pressure 111/60 116/58 L Pulse Oximetry 98 98 98 12/20/20 20:30 12/20/20 21:00 12/20/20 21:01 Temperature Pulse Rate 60 60 60 Respiratory Rate 20 18 19 Blood Pressure 124/59 L 130/60 Pulse Oximetry 97 96 96 Oxygen Delivery Method Room Air Narrative Exam Narrative: General: Patient is a well-developed, well-nourished appears fatigue though asymptomatic and in no distress at this time. HEENT: Normocephalic, atraumatic, extraocular muscles intact, oral pharynx is clear and mucous membranes are moist. Neck is supple and symmetric, trachea is midline, no adenopathy, no thyroid enlargement, nontender, no masses palpated. Negative for JVD Chest: Normal AP diameter and contour without kyphoscoliosis, no nasal flaring, retractions, or tachypneic labored Lungs: Auscultation of all lung romero are clear without adventitious sounds, wheezes, rhonchi, or rales. Cardio: regular rate and rhythm without murmur, rubs, or gallops, no carotid bruit, no cardiac pulsations present. Abdomen: Soft nontender, negative for organomegaly, or masses. Bowel sounds are present in all 4 quadrants without guarding or rebound, no CVA tenderness. Musculoskeletal: Muscle strength and tone are equal within normal limits, no deformity, crepitus, effusions, cyanosis, clubbing or edema present. Full range of motion intact radial and pedal pulses are normal. Skin: Warm dry and intact without rashes, ulcerations or petechiae. Neuro: Alert and orientated x3, strength is +5/5 in all extremities, sensation to touch intact, no gross deficits noted of cranial nerves. Psych: Patient has a well-kept appearance, appropriate affect, mental status attitude thought context and judgment are appropriate for age. Objective Labs Result Diagrams: 12/20/20 19:14 12/20/20 19:14 Labs: Laboratory Results - last 24 hr 12/20/20 12/20/20 12/20/20 19:14 19:14 19:14 WBC 4.0 L RBC 4.10 L Hgb 12.5 L Hct 37.6 L MCV 91.8 MCH 30.6 MCHC 33.3 RDW 14.4 Plt Count 138 L Neut % (Auto) 36.8 L Lymph % (Auto) 57.[address] [place] % (Auto) 4.5 Eos % (Auto) 1.1 L Baso % (Auto) 0.4 Neut # (Auto) 1500 Lymph # (Auto) 2300 [place] # (Auto) 200 Eos # (Auto) 0 Baso # (Auto) 0 PT 15.0 H INR 1.3 APTT 30 Sodium 140 Potassium 4.7 Chloride 106 Carbon Dioxide 25 BUN 29 H Creatinine 1.04 Estimated GFR > 60.0 BUN/Creatinine Ratio 27.9 H Glucose 129 H Calcium 9.6 Magnesium 2.1 Total Bilirubin 0.4 AST 30 ALT 22 Alkaline Phosphatase 83 Total Creatine Kinase 54 L CK-MB (CK-2) TNP CK-MB (CK-2) Rel Index TNP Troponin I < 0.012 Total Protein 7.0 Albumin 4.5 Globulin 2.5 Albumin/Globulin Ratio 1.8 Lipase 124 Assessment & Plan Assessment & Plan narrative: 1. Uncontrolled , Ventricular tachycardia, acute on chronic, present on admission in the setting left diastolic heart failure with an ejection fraction of 20-25%, acute on chronic, present on admission- Stable- Pt is asymptomatic. -patient requires hospitalization for amiodarone drip to stabilize ventricular tachycardia, this will likely take less than 2 midnights, then patient to follow-up with outpatient Cardiology. -Heart Score:6 -Monitor for hypertensive emergencies with acute end-organ damage, ventricular tachycardia, unstable SVT, hypertension, angina or CT, heart failure, renal function. -admit telemetry ICU, vital signs q.4 hours, strict I&O Q shift, daily weights, activity: As tolerated, Diet: NPO O2 to keep O2 sats greater than 92% potassium > 4 and Mag > 2 -patient given amiodarone 150 mg loading dose followed by 360 mg at 33.3 cc/hour drip over 6 hours then to change to 16.7 cc/hour at 0.5 milligrams/minute over 12 hours or may transition to oral tomorrow if patient stabilizes overnight. -I personally reviewed patient's last echo 01/2019 -continue patient's Lasix and metoprolol 2. Essential hypertension, chronic, present on admission -continue patient's benazepril, isosorbide, eplerenone 3. Hyperlipidemia, chronic, present on admission -continue patient's Lipitor and niacin 4. BPH, chronic, present on admission -continue patient's Flomax 5. Obstructive sleep apnea with dependence on CPAP, acute on chronic, present on admission -respiratory consult ordered for CPAP Code status:Full Surrogate decision maker: Patricia Lawrence COVID PCR:Negative COVID vaccination:unknown DVT/VTE prophylaxis: Lovenox 40 mg b.i.d. and SCDs Estimated length of stay: less than 2 midnights Scores GCS [place] coma scale eye opening: Spontaneous [place] coma scale verbal response: Orientated [place] coma scale motor response: Obey commands [place] coma scale total score: 15 CHADS-VASc Congestive heart failure: yes Hypertension: yes Age 75 years or older: yes Diabetes mellitus: no Stroke, TIA, or TE: no Vascular disease: yes Age 65 to 74 years: no Sex category (female): Male CHADS-VASc Score: 5
[2020-12-20 22:25] LABS: COVID19 - ADMIT (NP swab/PCR) Negative (Negative)
[2020-12-21] VITALS (22 sets, daily range): BP systolic 101–128; BP diastolic 54–73; PULSE 59–66; RESP 14–25; TEMP 36.1–36.7; O2SAT 94–97; BMI 27.3
[2020-12-21] MEDS: AMIODARONE 360 MG/200 ML PIGGYBACK 16.7 MG IV (03:06)
[2020-12-21] MEDS: METOPROLOL ER 50 MG TABLET PO (04:54)
[2020-12-21 05:27] LABS: Add Manual Diff / Slide Review NO; Basophils Absolute Auto 0 /uL (0-100); Basophils Percent Auto 0.2 % (0-2); Eosinophils Absolute Auto 0 /uL (0-450); Eosinophils Percent Auto 1.4 % (2-4); Hematocrit 35.2 % (41-53); Hemoglobin 11.6 g/dL (13.5-17.5); INR 1.4 (0.9-1.3); Lymphocytes Absolute Auto 1800 /uL (1100-4500); Mean Corpuscular Hemoglobin 30.5 PG (26-34); Mean Corpuscular Volume 92.5 fL (80-100); Monocytes Absolute Auto 200 /uL (0-900); Monocytes Percent Auto 5.2 % (3-14); Neutrophils Absolute Auto 1200 /uL (1500-7000); Neutrophils Percent Auto 36.2 % (50-75); Platelet Count 129 X10^3/uL (150-400); Prothrombin Time 15.6 SECONDS (10.1-12.7); Red Cell Distribution Width 14.6 % (11.6-14.8); White Blood Cell Count 3.2 X10^3/uL (4.5-11.0)
[2020-12-21 05:33] LABS: Blood Urea Nitrogen 25 mg/dL (9-20); Calcium 9.2 mg/dL (8.4-10.2); Carbon Dioxide 27 mmol/L (22-32); Chloride 105 mmol/L (98-107); Estimated Glomerular Filt Rate > 60.0 mL/min (>60); Glucose 141 mg/dL (80-110); HEMOLYSIS < 15 (0-50); Magnesium 1.9 mg/dL (1.6-2.3); Potassium 4.9 mmol/L (3.4-5.1); Sodium 139 mmol/L (137-145)
[2020-12-21 05:40] LABS: NT-proBNP (BNP-Adult 18+) 1420 pg/mL (<450)
--- NOTE | 2020-12-21 06:11 | PC.NURSE ---
Night Note-Patient admitted to ICU room 228 at 0035, A/Ox4. Amiodarone gtt infusing per protocol, patient is in SR, 1st degree AVB, BBB on monitor, rate 60, he has pacemaker. Initially had multiple PVCs and Couplets. Around 0210, he had 3 consecutive 6 beat runs VT, and between 0333 to 0344 he had multiple runs of VT > 15 beats, at this time he needed to void, stood at side of bed without chest pain, pressure, palpitations, or dizziness, he is asymptomatic. BP is stable, see vital trends. 50mg metoprolol succinate given. He has had no further episodes of VT this am.
[2020-12-21] MEDS: ASPIRIN 81 MG CHEW TAB PO (08:27)
[2020-12-21] MEDS: FUROSEMIDE 20 MG TABLET PO (08:27)
[2020-12-21] MEDS: TAMSULOSIN 0.4 MG CAPSULE PO (08:27)
[2020-12-21] MEDS: ENOXAPARIN 40 MG/0.4 ML SYRINGE SUBCUT (08:27)
[2020-12-21] MEDS: LEVOTHYROXINE 25 MCG TABLET PO (08:27)
[2020-12-21] MEDS: lisinopriL 10 MG TABLET PO (08:27)
[2020-12-21] MEDS: SODIUM CHLORIDE 0.9% FLUSH 10 ML IV (08:28)
--- NOTE | 2020-12-21 12:01 | CM.DANOTE ---
DCP: Case received, EMR reviewed and met with patient. Patient's , Patricia, was at bedside, along with patient's son. Introduced self and role. Was able to obtain information regarding patient's baseline activity level prior to hospitalization. DCP assessment completed with information currently available. Patient is a 80 year old male who admitted yesterday evening to the care of the hospitalist team. PCP: Dr. Carrie Garcia. Payer: confirmed: Medicare/[employer]. Patient came to the hospital via private vehicle secondary to having an irregular heart beat. Patient has history of cardiac issues, and has an implanted pacemaker/defibrillator. Patient holds diagnosis of v-tach, and is here for cardiac stabilization through medication evaluation. Met with patient in his room. He is alert and oriented, pleasant. He had and son at his bedside. Confirmed that he resides here in [place] with his spouse, Patricia. He is independent at his baseline, and does still drive. Confirmed with him that Dr. Carrie Garcia is his primary care provider. P: DCP to continue to follow. Patient should be able to go home when he is medically stable. Savita Kraus RN/Acting Manager
[2020-12-21 14:18] LABS: Troponin I < 0.012 ng/mL (0.01-0.034)
--- NOTE | 2020-12-21 16:11 | PC.NURSE ---
Patient discharged home. At discharge patient is A/Ox4, AV paced at 60bpm on tele with no ectopy, BP WNL, on RA, ambulating ad chloe. at bedside when discharge instruction given. Patient received new paper prescription and education for amiodarone BID, to be started this evening. Patient will continue his home meds as prescribed. IVs and bus driver/monitor removed. Patient has no concerns or questions about discharge.
--- NOTE | 2020-12-21 17:16 | P.DS_ITS ---
History of Present Illness History of Present Illness Chief complaint: Tachy Narrative: Per Shellie Taylor: Patient is a 80 year old male Fer Lawrence a former smoker with extensive cardiac history dating back 40 years including a 6 way bypass, hypertension, hyperlipidemia, arrhythmia is resulting in the placement of a pacemaker/AICD about 5 years ago. His primary direct support specialist is Dr. Spring and Dr. Jordan is his morning show producer. Patient presents today with his in the chief complaint of multiple episodes of palpitations over the past day and a half or so. He denies any chest pain but does occasionally feel a bit lightheaded. Most of his episodes are rather brief and fleeting but he did have a defibrillator discharge on 12/19/20 which is the 1st time this has happened which led him to come into the ED. his defibrillator was interrogated and demonstrated 96 episodes of V-tach patient was given of loading dose of amiodarone per Cardiology consult and increased metoprolol to 50 mg b.i.d. and was then released home. Having continued episodes of V-tach patient return to the ED today. He did not have any chest pain or shortness of breath. Did not pass out. Upon arrival patient was feeling somewhat lightheaded but has resolved and is not having chest pain or shortness of breath. He did not pass out. No headache. Not on blood thinners. He denies any other symptoms such as fever chills nor nausea, vomiting or diarrhea. He denies any recent changes in his medications. Upon admit patient's vitals are unremarkable and stable. Patient has a WBC of 4.0, hemoglobin 12.5, HCT 37.6, platelets 138. His chemistries are mostly unremarkable with a BUN of 29 and glucose of 129, magnesium and lipase are within normal limits. Patient's chest x-ray is negative for acute cardiopulmonary processes. EKG demonstrated AV dual-paced rhythm with prolonged AV conduction. Dr. Mejia in the ED consulted with direct support specialist Dr. Wallace recommended patient placed on amiodarone loading dose followed by drip and then changed to oral. An outpatient cardiology follow-up. During admit examination in the ED patient had a 22nd run of V-tach, a quickly resolved and patient was asymptomatic and stable. Patient admitted for uncontrolled stable ventricular tachycardia. Discharge Providers Provider Date of admission: 12/20/20 23:46 Discharge Date: 12/21/20 Primary care physician: Carrie Garcia MD Consults: 12/21/20 01:03 Consult to Respiratory Therapy Evaluate & Treat Comment: CPAP Physician Instructions: Evaluate and treat Discharge provider: Patrice Sorensen MD Summary Hospital Course Discharge Diagnosis: 1. Ventricular tachycardia 2. CHF with reduced ejection fraction, chronic 3. s/p PPM/AICD 4. CAD s/p CABG 5. HTN 6. HL 7. BPH 8. SAUL, on CPAP Hospital Course: Mr. Lawrence has PMH of CAD s/p CABG and has had a PPM and AICD for years and recently began to experience palpitations and had one shock from his AICD. He was started on amiodarone load and he was monitored for vtach. Initially, he had nonsustained episodes that occurred frequently, but for the last 12 hours in the hospital these episodes completely resolved and the patient felt back to normal. He will be discharged on oral amiodarone 200mg BID with plan to follow up with his direct support specialist as soon as possible. He recently had metoprolol increased to 50mg BID. He had a normal potassium, magnesium, and negative troponin in the hospital. Exam Vital Signs (past 8 hours): - 12/21/20 10:00 12/21/20 11:00 12/21/20 12:00 Temperature 98.1 F Pulse Rate 60 60 61 Respiratory Rate 18 Blood Pressure 113/56 L 126/61 113/58 L Pulse Oximetry 95 96 12/21/20 13:15 12/21/20 14:00 Temperature Pulse Rate 66 61 Respiratory Rate Blood Pressure 122/58 L 114/56 L Pulse Oximetry Oxygen Delivery Method Room Air Oxygen Flow Rate 0 Narrative Exam Narrative: General: no acute distress Lungs: clear bilaterally Cardio: regular rate and rhythm without murmur Abdomen: Soft nontender, negative for organomegaly, or masses. Normal bowel sounds Musculoskeletal: Muscle strength and tone are equal within normal limits Skin: Warm dry and intact without rashes Neuro: Alert and orientated x3, strength is +5/5 in all extremities Objective Labs Result Diagrams: 12/21/20 04:55 12/21/20 04:55 Labs: Laboratory Results - last 24 hr 12/20/20 12/20/20 12/20/20 19:14 19:14 19:14 WBC 4.0 L RBC 4.10 L Hgb 12.5 L Hct 37.6 L MCV 91.8 MCH 30.6 MCHC 33.3 RDW 14.4 Plt Count 138 L Neut % (Auto) 36.8 L Lymph % (Auto) 57.2 H [place] % (Auto) 4.5 Eos % (Auto) 1.1 L Baso % (Auto) 0.4 Neut # (Auto) 1500 Lymph # (Auto) 2300 [place] # (Auto) 200 Eos # (Auto) 0 Baso # (Auto) 0 PT 15.0 H INR 1.3 APTT 30 Sodium 140 Potassium 4.7 Chloride 106 Carbon Dioxide 25 BUN 29 H Creatinine 1.04 Estimated GFR > 60.0 BUN/Creatinine Ratio 27.9 H Glucose 129 H Calcium 9.6 Magnesium 2.1 Total Bilirubin 0.4 AST 30 ALT 22 Alkaline Phosphatase 83 Total Creatine Kinase 54 L CK-MB (CK-2) TNP CK-MB (CK-2) Rel Index TNP Troponin I < 0.012 NT-Pro-B Natriuret Pep Total Protein 7.0 Albumin 4.5 Globulin 2.5 Albumin/Globulin Ratio 1.8 Lipase 124 Nasal Screen MRSA (PCR) SARS-CoV-2 (PCR) 12/20/20 12/21/20 12/21/20 21:26 00:45 04:55 WBC 3.2 L RBC 3.80 L Hgb 11.6 L Hct 35.2 L MCV 92.5 MCH 30.5 MCHC 33.0 RDW 14.6 Plt Count 129 L Neut % (Auto) 36.2 L Lymph % (Auto) 57.0 H [place] % (Auto) 5.2 Eos % (Auto) 1.4 L Baso % (Auto) 0.2 Neut # (Auto) 1200 L Lymph # (Auto) 1800 [place] # (Auto) 200 Eos # (Auto) 0 Baso # (Auto) 0 PT INR APTT Sodium Potassium Chloride Carbon Dioxide BUN Creatinine Estimated GFR BUN/Creatinine Ratio Glucose Calcium Magnesium Total Bilirubin AST ALT Alkaline Phosphatase Total Creatine Kinase CK-MB (CK-2) CK-MB (CK-2) Rel Index Troponin I NT-Pro-B Natriuret Pep Total Protein Albumin Globulin Albumin/Globulin Ratio Lipase Nasal Screen MRSA (PCR) Negative for mrsa SARS-CoV-2 (PCR) Negative 12/21/20 12/21/20 12/21/20 04:55 04:55 04:55 WBC RBC Hgb Hct MCV MCH MCHC RDW Plt Count Neut % (Auto) Lymph % (Auto) [place] % (Auto) Eos % (Auto) Baso % (Auto) Neut # (Auto) Lymph # (Auto) [place] # (Auto) Eos # (Auto) Baso # (Auto) PT 15.6 H INR 1.4 H APTT Sodium 139 Potassium 4.9 Chloride 105 Carbon Dioxide 27 BUN 25 H Creatinine 1.04 Estimated GFR > 60.0 BUN/Creatinine Ratio 24.0 H Glucose 141 H Calcium 9.2 Magnesium 1.9 Total Bilirubin AST ALT Alkaline Phosphatase Total Creatine Kinase CK-MB (CK-2) CK-MB (CK-2) Rel Index Troponin I < 0.012 NT-Pro-B Natriuret Pep 1420 H Total Protein Albumin Globulin Albumin/Globulin Ratio Lipase Nasal Screen MRSA (PCR) SARS-CoV-2 (PCR) PFS Medical History BPH (benign prostatic hyperplasia) Congestive heart failure Coronary artery disease CPAP (continuous positive airway pressure) dependence Essential hypertension Hyperlipidemia Obstructive sleep apnea Thrombocytopenia Surgical History History of automatic internal cardiac defibrillator (AICD) History of heart bypass surgery Family History Father Heart disease Mother Hypertension Social History household members: spouse Smoking Status: Former smoker eating out: rarely or never Type(s) of exercise: walking Discharge Plan Discharge Plan Patient Disposition: Home Provider Discharge Comment: Mr. Lawrence was admitted with palpitations. He was found on interrogating his pacemaker to have an abnormal rhythm that was occurring called ventricular tachycardia. This usually resolved on its own after lasting a short period, but one time he did have his ICD shock. He was started on a new medication to help try to control this rhythm called amiodarone and the ventricular tachycardia resolved. He should continue the pill version of this medication and also follow closely with his direct support specialist. Discharge orders & Medications Prescriptions: New amiodarone 200 mg tablet 200 mg PO BID Qty: 28 RF: 0 Continued metoprolol succinate 50 mg tablet extended release 24 hr 50 mg PO BID Qty: 30 RF: 0 tamsulosin [Flomax] 0.4 mg Capsule 0.4 mg PO BID RF: 0 aspirin 81 mg Tablet,Chewable 81 mg PO DAILY RF: 0 multivitamin Capsule 1 cap PO DAILY RF: 0 atorvastatin 40 mg Tablet 40 mg PO DAILY RF: 0 ascorbic acid (vitamin C) 1,000 mg Tablet Extended Release 1,000 mg PO Q12H RF: 0 furosemide 20 mg Tablet 20 mg PO DAILY RF: 0 benazepril 10 mg Tablet 10 mg PO BID RF: 0 eplerenone 25 mg Tablet 25 mg PO DAILY RF: 0 levothyroxine 25 mcg Tablet 25 mcg PO DAILY RF: 0 metformin 500 mg Tablet Extended Release 24 Hr 1,000 mg PO BEDTIME RF: 0 Follow up/Referrals: Carrie Garcia MD [Primary Care Provider] - Discharge Data Primary Care Provider: Carrie Garcia Quality VTE Deep Vein Thrombosis/Pulmonary Embolism Present on Admission: No MIPS - DC The patient has current or prior documentation of left ventricular ejection fraction (LVEF) less than 40%, or moderate or severely depressed left ventricular systolic function.: Yes A. The patient was prescribed or already taking an Angiotensin-Converting Enzyme (KIAN) Inhibitor, or Angiotensin Receptor Marsha (ARB).: Yes B. The patient was prescribed or already taking a beta-marsha. [If Yes to Both A & B, STOP here]: Yes
== END 2020-12-21 16:22 | disposition home or self-care (01) ==
LOC: ED 22:29 → ICU 12-21 00:42 → AC 12-22 09:54
PROVIDERS: Admitting Provider Nurse Practitioner Family; Emergency Provider Emergency Medicine; PCP Internal Medicine; Referring Provider Emergency Medicine; Visit Provider Nurse Practitioner Family
DX: I47.2 Ventricular tachycardia (principal); I50.9 Heart failure, unspecified; I11.0 Hypertensive heart disease with heart failure; E78.5 Hyperlipidemia, unspecified; I25.10 Atherosclerotic heart disease of native coronary artery without angina pectoris; E03.9 Hypothyroidism, unspecified; G47.33 Obstructive sleep apnea (adult) (pediatric); N40.0 Benign prostatic hyperplasia without lower urinary tract symptoms; Z95.1 Presence of aortocoronary bypass graft; Z95.0 Presence of cardiac pacemaker; Z20.822 Contact with and (suspected) exposure to COVID-19
CPT/HCPCS: 36415; 71045; 80048; 80053; 82550; 82962; 83690; 83735; 83880; 84484; 85025; 85610; 85730; 87635; 87797; 93005; 93010; 96365; 96366; 96372; 96375; 99284; C9803; G0378; J0282; J1650

== ENCOUNTER → 2021-01-13 14:19 | Outpatient (CLI) | payer MEDICARE, SELFPAY ==
[2020-12-21 01:03] VITALS: BMI 27.3
--- NOTE | 2021-01-13 | DI.ECHO.S_ITS ---
[facility]---------+ [facility] +---------+ : : [address] : [address] : : : : [id number] : : : : Phone: [phone]+ Echocardiogram Report + + :Name: NADEEM PINZON Study Date: 01/13/2021 Height: 69 in : :[facility] ReadingLocation: Weight: 180 lb : : Gender: Male BSA: 2.0 m2 : :: 1940 Age: 80 yrs BP: 112/68 mmHg: :Reason For Study: CARDIOMYOPAHTY : :Ordering Physician: PUMA, : :KSENIA Performed By: Luci Melvin : :Referring: KSENIA BARTHOLOMEW : + + Interpretation Summary The left ventricle is moderately dilated. The ejection fraction is estimated to be 20-25%. There has been no significant change in LVEF since the previous exam. The right ventricle is grossly normal size. Right ventricular systolic function is mildly reduced. There is a pacemaker lead in the right ventricle. There is mild to moderate mitral regurgitation. Compared to the prior echo study, there has been an increase in the severity of mitral regurgitation. There is mild tricuspid regurgitation. Compared to the prior echo exam, there has been no change in TR severity. The right ventricular systolic pressure is estimated to be at least 32 mmHg based on an estimated right atrial pressure of 3 mm Hg. Procedure: A two-dimensional transthoracic echocardiogram with color flow and Doppler was performed. The study quality was technically adequate. Comparison is made with the echocardiogram of 01/13/2019. A contrast injection of Definity was performed to improve assessment of LV function. The patient has a paced rhythm. The heart rate ranged between 60-64 bpm during the study. Left Ventricle: The left ventricle is moderately dilated. There is normal left ventricular wall thickness. There is no thrombus. The ejection fraction is estimated to be 20-25%. There has been no significant change since the previous exam. There is a moderate to severe global hypokinesis with akinesis of inferior wall, apex, mid to distal septum, posterolateral wall unchanged from the previous study. Basal LV segments appears to have relatively better contractility. MV E/A: 0.60 Med Peak E' Steven: 5.0 cm/sec E/E' med: 12.1. Right Ventricle: There is a pacemaker lead in the right ventricle. The right ventricle is grossly normal size. Right ventricular systolic function is mildly reduced. Atria: The left atrial size is normal. The right atrium is mildly dilated. There is no Doppler evidence for an interatrial shunt. Mitral Valve: The mitral valve leaflets appear mildly thickened, but open well. There is mild mitral annular calcification. The mitral valve chordae are thickened and/or calcified. Tented mitral leaflets. There is mild to moderate mitral regurgitation. Compared to the prior echo study, there has been an increase in the severity of mitral regurgitation. Aortic Valve: The aortic valve is trileaflet. The aortic valve is mildly calcified. The aortic valve opens well. There is no aortic valve stenosis. Tricuspid Valve: The tricuspid valve is normal in structure and function. There is mild tricuspid regurgitation. The right ventricular systolic pressure is estimated to be at least 32 mmHg based on an estimated right atrial pressure of 3 mm Hg. Compared to the prior echo exam, there has been no change in TR severity. Pulmonic Valve: The pulmonic valve leaflets are thin and pliable; valve motion is normal. There is trace pulmonic regurgitation. Great Vessels: The aortic root is normal size. The dimensions of the ascending aorta are normal. The IVC is of normal diameter and collapses greater than 50% with a sniff. This suggests a low right atrial pressure of 3 mm Hg. Pericardium/ Pleura There is no pericardial effusion. There is no pleural effusion. MMode/2D Measurements & Calculations LVIDd: 6.6 cm LVOT diam: 2.0 cm LVIDs: 5.8 cm Ao root diam: 3.7 cm FS: 12.2 % asc Aorta Diam: 3.3 cm EPSS: 1.4 cm Ao Arch Diam (Prox Trans): 2.7 cm IVSd: 0.72 cm LVPWd: 1.1 cm LV alexander. diameter/BSA (cm/m^2): 3.4 LV sys. diameter/BSA (cm/m^2): 2.9 LA A2 area: 20.0 cm2 RA long axis: 5.3 cm LA A4 area: 21.5 cm2 RA area: 20.6 cm2 LA length (vol): 5.6 cm RA vol: 67.3 ml LA vol: 65.6 ml RA : 34.1 ml/m2 LA vol index: 33.2 ml/m2 IVC diam: 1.5 cm RVD1 (basal): 4.7 cm TAPSE: 1.4 cm Doppler Measurements & Calculations Ao V2 max: 104.6 cm/sec LVOT Max Steven: 101.5 cm/sec Ao V2 mean: 72.4 cm/sec LV V1 max P.1 mmHg Ao max P.4 mmHg LV V1 VTI: 19.2 cm Ao mean P.3 mmHg CHE(I,D): 2.8 cm2 Ao V2 VTI: 22.6 cm CHE(V,D): 3.2 cm2 sev ratio: 0.85 CHE indexed to BSA (cm^2/m^2): 1.4 MV E max steven: 59.8 cm/sec TR max steven: 270.1 cm/sec MV A max steven: 100.4 cm/sec TR max P.4 mmHg MV E/A: 0.60 PA V2 max: 99.9 cm/sec Med Peak E' Steven: 5.0 cm/sec PA V2 mean: 61.4 cm/sec E/E' med: 12.1 PA mean P.7 mmHg Lat Peak E' Steven: 5.9 cm/sec PA pr(Accel): 46.5 mmHg E/E' lat: 10.2 E/e' average: 11.1 MV dec time: 0.13 sec SV(LVOT): 62.5 ml Reading Physician:05:52 PM
== END ==
PROVIDERS: PCP Internal Medicine; Referring Provider Internal Medicine Cardiovascular Disease; Visit Provider Internal Medicine Cardiovascular Disease
DX: I08.1 Rheumatic disorders of both mitral and tricuspid valves (principal); I25.5 Ischemic cardiomyopathy; Z95.0 Presence of cardiac pacemaker
CPT/HCPCS: C8929; Q9957

== ENCOUNTER → 2021-04-10 07:52 | Outpatient (CLI) | payer MEDICARE, SELFPAY ==
[2020-12-21 01:03] VITALS: BMI 27.3
[2021-04-10 09:00] LABS: Alanine Aminotransferase 31 IU/L (<50); Albumin 4.3 g/dL (3.5-5.0); Albumin Globulin Ratio 1.7 (1.0-2.8); Alkaline Phosphatase 75 U/L (38-126); Aspartate Aminotransferase 33 IU/L (17-59); Bilirubin Total 0.5 mg/dL (0.2-1.3); Blood Urea Nitrogen 27 mg/dL (9-20); Calcium 9.5 mg/dL (8.4-10.2); Carbon Dioxide 29 mmol/L (22-32); Chloride 101 mmol/L (98-107); Estimated Glomerular Filt Rate 48.1 mL/min (>60); Globulin 2.5 g/dL (1.7-4.1); Glucose 127 mg/dL (80-110); HEMOLYSIS < 15 (0-50); Potassium 4.9 mmol/L (3.4-5.1); Sodium 139 mmol/L (137-145); Total Protein 6.8 g/dL (6.3-8.2)
[2021-04-10 09:30] LABS: Thyroid Stimulating Hormone < 0.015 uIU/mL (0.47-4.68)
== END ==
PROVIDERS: PCP Internal Medicine; Referring Provider Internal Medicine Cardiovascular Disease; Visit Provider Internal Medicine Cardiovascular Disease
DX: Z79.899 Other long term (current) drug therapy (principal); R06.02 Shortness of breath
CPT/HCPCS: 36415; 80053; 84443

== ENCOUNTER → 2021-05-07 12:29 | Outpatient (CLI) | payer MEDICARE, SELFPAY ==
[2020-12-21 01:03] VITALS: BMI 27.3
[2021-05-07 13:45] LABS: COVID19 -Nasal RAPID Negative (Negative)
== END ==
PROVIDERS: PCP Internal Medicine; Referring Provider Internal Medicine; Visit Provider Internal Medicine
DX: Z20.822 Contact with and (suspected) exposure to COVID-19 (principal)
CPT/HCPCS: 87635; C9803

== ENCOUNTER → 2021-05-08 08:57 | Outpatient (CLI) | payer MEDICARE, SELFPAY ==
[2020-12-21 01:03] VITALS: BMI 27.3
--- NOTE | 2021-05-14 09:32 | PM.PFT.1 ---
Pulmonary Function Test Referral & Results Date Patient Seen: 05/08/21 Requesting provider: Mckenzie Spring Results: The spirometry demonstrates an FVC of 2.98 L which is 76% of predicted. The FEV1 was measured at 2.60 L which is 94% of predicted. The FEV1/FVC ratio was 87 which is 121% of predicted. Following the administration of bronchodilator there was no significant change Lung volumes show an SVC of 3.84 L which is 90% of predicted. The diffusing capacity was measured at 17.18 which is 55% of predicted. No hemoglobin value was provided, so no correction for potential anemia could be made, if appropriate. The maximum voluntary ventilation was normal Interpretation: This study demonstrates probably normal spirometry There is however a moderate reduction in diffusing capacity suggesting disease at the capillary alveolar level Clinical correlation suggested
== END ==
PROVIDERS: PCP Internal Medicine; Referring Provider Internal Medicine Cardiovascular Disease; Visit Provider Internal Medicine Cardiovascular Disease
DX: Z79.899 Other long term (current) drug therapy (principal); Z87.891 Personal history of nicotine dependence; J98.8 Other specified respiratory disorders
CPT/HCPCS: 94060; 94726; 94729

== ENCOUNTER → 2021-07-16 07:04 | Outpatient (CLI) | payer MEDICARE, SELFPAY ==
[2020-12-21 01:03] VITALS: BMI 27.3
[2021-07-16 08:07] LABS: Alanine Aminotransferase 22 IU/L (<50); Albumin 4.5 g/dL (3.5-5.0); Albumin Globulin Ratio 1.7 (1.0-2.8); Alkaline Phosphatase 68 U/L (38-126); Aspartate Aminotransferase 32 IU/L (17-59); BUN Creatinine Ratio 16.7 (6-22); Bilirubin Total 0.5 mg/dL (0.2-1.3); Blood Urea Nitrogen 23 mg/dL (9-20); Calcium 9.8 mg/dL (8.4-10.2); Carbon Dioxide 30 mmol/L (22-32); Chloride 102 mmol/L (98-107); Estimated Glomerular Filt Rate 49.7 mL/min (>60); Globulin 2.6 g/dL (1.7-4.1); Glucose 111 mg/dL (80-110); HEMOLYSIS < 15 (0-50); Potassium 5.2 mmol/L (3.4-5.1); Sodium 137 mmol/L (137-145); Total Protein 7.1 g/dL (6.3-8.2)
[2021-07-16 08:38] LABS: Thyroid Stimulating Hormone 33.2 uIU/mL (0.47-4.68)
== END ==
PROVIDERS: PCP Internal Medicine; Referring Provider Internal Medicine Cardiovascular Disease; Visit Provider Internal Medicine Cardiovascular Disease
DX: Z79.899 Other long term (current) drug therapy (principal)
CPT/HCPCS: 36415; 80053; 84443

== ENCOUNTER → 2021-08-05 07:03 | Outpatient (CLI) | payer MEDICARE, SELFPAY ==
[2020-12-21 01:03] VITALS: BMI 27.3
[2021-08-05 09:01] LABS: BUN Creatinine Ratio 18.1 (6-22); Blood Urea Nitrogen 28 mg/dL (9-20); Calcium 9.5 mg/dL (8.4-10.2); Carbon Dioxide 28 mmol/L (22-32); Chloride 101 mmol/L (98-107); Estimated Glomerular Filt Rate 43.5 mL/min (>60); Glucose 110 mg/dL (80-110); HEMOLYSIS < 15 (0-50); Potassium 5.1 mmol/L (3.4-5.1); Sodium 138 mmol/L (137-145)
== END ==
PROVIDERS: PCP Internal Medicine; Referring Provider Internal Medicine Cardiovascular Disease; Visit Provider Internal Medicine Cardiovascular Disease
DX: I50.22 Chronic systolic (congestive) heart failure (principal)
CPT/HCPCS: 36415; 80048

== ENCOUNTER → 2021-08-19 06:57 | Outpatient (CLI) | payer MEDICARE, SELFPAY ==
[2020-12-21 01:03] VITALS: BMI 27.3
[2021-08-19 09:20] LABS: Blood Urea Nitrogen 32 mg/dL (9-20); Calcium 9.1 mg/dL (8.4-10.2); Carbon Dioxide 28 mmol/L (22-32); Chloride 102 mmol/L (98-107); Estimated Glomerular Filt Rate 41.8 mL/min (>60); Glucose 121 mg/dL (80-110); HEMOLYSIS < 15 (0-50); Potassium 5.2 mmol/L (3.4-5.1); Sodium 138 mmol/L (137-145)
== END ==
PROVIDERS: PCP Internal Medicine; Referring Provider Internal Medicine Cardiovascular Disease; Visit Provider Internal Medicine Cardiovascular Disease
DX: I25.5 Ischemic cardiomyopathy (principal)
CPT/HCPCS: 36415; 80048

== ENCOUNTER → 2021-09-01 06:59 | Outpatient (CLI) | payer MEDICARE, SELFPAY ==
[2020-12-21 01:03] VITALS: BMI 27.3
[2021-09-01 09:48] LABS: BUN Creatinine Ratio 18.9 (6-22); Blood Urea Nitrogen 30 mg/dL (9-20); Calcium 9.4 mg/dL (8.4-10.2); Carbon Dioxide 29 mmol/L (22-32); Chloride 102 mmol/L (98-107); Estimated Glomerular Filt Rate 42.1 mL/min (>60); Glucose 117 mg/dL (80-110); HEMOLYSIS < 15 (0-50); Potassium 4.9 mmol/L (3.4-5.1); Sodium 137 mmol/L (137-145)
== END ==
PROVIDERS: PCP Internal Medicine; Referring Provider Internal Medicine Cardiovascular Disease; Visit Provider Internal Medicine Cardiovascular Disease
DX: I25.5 Ischemic cardiomyopathy (principal)
CPT/HCPCS: 36415; 80048

== ENCOUNTER → 2021-10-24 06:55 | Outpatient (CLI) | payer MEDICARE, SELFPAY ==
[2020-12-21 01:03] VITALS: BMI 27.3
[2021-10-24 08:27] LABS: Add Manual Diff / Slide Review NO; Basophils Absolute Auto 0 /uL (0-100); Basophils Percent Auto 0.2 % (0-2); Eosinophils Absolute Auto 100 /uL (0-450); Eosinophils Percent Auto 1.5 % (2-4); Hematocrit 39.7 % (41-53); Hemoglobin 13.3 g/dL (13.5-17.5); Lymphocytes Absolute Auto 2400 /uL (1100-4500); Lymphocytes Percent Auto 56.5 % (25-40); Mean Corpuscular HGB Conc 33.5 % (30-36); Mean Corpuscular Volume 92.4 fL (80-100); Monocytes Absolute Auto 200 /uL (0-900); Monocytes Percent Auto 4.5 % (3-14); Neutrophils Absolute Auto 1600 /uL (1500-7000); Neutrophils Percent Auto 37.3 % (50-75); Platelet Count 154 X10^3/uL (150-400); Red Cell Distribution Width 14.8 % (11.6-14.8); White Blood Cell Count 4.2 X10^3/uL (4.5-11.0)
[2021-10-24 08:44] LABS: Alanine Aminotransferase 19 IU/L (<50); Albumin 4.5 g/dL (3.5-5.0); Albumin Globulin Ratio 1.7 (1.0-2.8); Alkaline Phosphatase 68 U/L (38-126); Aspartate Aminotransferase 31 IU/L (17-59); BUN Creatinine Ratio 16.3 (6-22); Bilirubin Total 0.4 mg/dL (0.2-1.3); Blood Urea Nitrogen 27 mg/dL (9-20); Calcium 9.3 mg/dL (8.4-10.2); Carbon Dioxide 29 mmol/L (22-32); Chloride 103 mmol/L (98-107); Estimated Glomerular Filt Rate 41 mL/min (>60); Globulin 2.6 g/dL (1.7-4.1); Glucose 112 mg/dL (80-110); HEMOLYSIS < 15 (0-50); Potassium 4.9 mmol/L (3.4-5.1); Sodium 140 mmol/L (137-145); Total Protein 7.1 g/dL (6.3-8.2)
[2021-10-24 09:19] LABS: Thyroid Stimulating Hormone 15.9 uIU/mL (0.47-4.68)
== END ==
PROVIDERS: Internal Medicine Medical Oncology; PCP Internal Medicine; Referring Provider Internal Medicine Cardiovascular Disease; Visit Provider Internal Medicine Cardiovascular Disease
DX: I50.22 Chronic systolic (congestive) heart failure (principal); Z79.899 Other long term (current) drug therapy; D72.9 Disorder of white blood cells, unspecified
CPT/HCPCS: 36415; 80053; 84443; 85025

== ENCOUNTER → 2021-11-12 06:56 | Outpatient (CLI) | payer MEDICARE, SELFPAY ==
[2020-12-21 01:03] VITALS: BMI 27.3
[2021-11-12 07:48] LABS: BUN Creatinine Ratio 16.1 (6-22); Blood Urea Nitrogen 22 mg/dL (9-20); Calcium 8.8 mg/dL (8.4-10.2); Carbon Dioxide 27 mmol/L (22-32); Chloride 102 mmol/L (98-107); Estimated Glomerular Filt Rate 52 mL/min (>60); Glucose 108 mg/dL (80-110); HEMOLYSIS < 15 (0-50); Potassium 4.9 mmol/L (3.4-5.1); Sodium 138 mmol/L (137-145)
== END ==
PROVIDERS: PCP Internal Medicine; Referring Provider Internal Medicine Cardiovascular Disease; Visit Provider Internal Medicine Cardiovascular Disease
DX: I50.22 Chronic systolic (congestive) heart failure (principal)
CPT/HCPCS: 36415; 80048

== ENCOUNTER → 2022-01-15 12:02 | Outpatient (CLI) | payer MEDICARE, SELFPAY ==
[2020-12-21 01:03] VITALS: BMI 27.3
[2022-01-15 13:30] LABS: Influenza A - CEPHEID Flu A NEGATIVE (NEGATIVE); Influenza B - CEPHEID Flu B NEGATIVE (NEGATIVE); Respiratory Syncytial Virus Negative (Negative)
[2022-01-15 13:49] LABS: COVID-19 CEPHEID PCR (VTM/NP) Negative (Negative)
== END ==
PROVIDERS: Visit Provider Nurse Practitioner Family
DX: R53.83 Other fatigue (principal); R50.9 Fever, unspecified
CPT/HCPCS: 0241U; 87086

== ENCOUNTER → 2022-02-02 11:32 | Outpatient (CLI) | payer MEDICARE, SELFPAY ==
[2020-12-21 01:03] VITALS: BMI 27.3
[2022-02-02 13:55] LABS: BUN Creatinine Ratio 19.8 (6-22); Blood Urea Nitrogen 26 mg/dL (9-20); Calcium 9.2 mg/dL (8.4-10.2); Carbon Dioxide 28 mmol/L (22-32); Chloride 102 mmol/L (98-107); Estimated Glomerular Filt Rate 55 mL/min (>60); Glucose 114 mg/dL (80-110); HEMOLYSIS < 15 (0-50); Potassium 4.7 mmol/L (3.4-5.1); Sodium 136 mmol/L (137-145)
== END ==
PROVIDERS: Referring Provider Internal Medicine Cardiovascular Disease; Visit Provider Internal Medicine Cardiovascular Disease
DX: I25.5 Ischemic cardiomyopathy (principal)
CPT/HCPCS: 36415; 80048

== ENCOUNTER → 2022-02-14 09:58 | Outpatient (CLI) | payer MEDICARE, SELFPAY ==
[2020-12-21 01:03] VITALS: BMI 27.3
[2022-02-14 11:33] LABS: Alanine Aminotransferase 16 IU/L (<50); Albumin 4.1 g/dL (3.5-5.0); Albumin Globulin Ratio 1.6 (1.0-2.8); Alkaline Phosphatase 80 U/L (38-126); Aspartate Aminotransferase 25 IU/L (17-59); BUN Creatinine Ratio 18.2 (6-22); Bilirubin Total 0.3 mg/dL (0.2-1.3); Blood Urea Nitrogen 26 mg/dL (9-20); Carbon Dioxide 27 mmol/L (22-32); Chloride 102 mmol/L (98-107); Estimated Glomerular Filt Rate 50 mL/min (>60); Globulin 2.6 g/dL (1.7-4.1); Glucose 109 mg/dL (80-110); HEMOLYSIS < 15 (0-50); Potassium 4.8 mmol/L (3.4-5.1); Sodium 140 mmol/L (137-145); Total Protein 6.7 g/dL (6.3-8.2)
[2022-02-14 11:51] LABS: Free T3, Triiodothyronine Free 2.48 pg/mL (2.77-5.27); Free T4, Direct Thyroxine 1.33 ng/dL (0.78-2.19); T4 Total Thyroxine 7.65 ug/dL (5.5-11.0)
[2022-02-14 12:04] LABS: Thyroid Stimulating Hormone 4.23 uIU/mL (0.47-4.68)
== END ==
PROVIDERS: PCP Internal Medicine; Referring Provider Internal Medicine Cardiovascular Disease; Visit Provider Internal Medicine Cardiovascular Disease
DX: Z79.899 Other long term (current) drug therapy (principal); I50.22 Chronic systolic (congestive) heart failure
CPT/HCPCS: 36415; 80053; 84436; 84439; 84443; 84481

== ENCOUNTER → 2022-02-18 15:48 | Outpatient (CLI) | payer MEDICARE, SELFPAY ==
[2020-12-21 01:03] VITALS: BMI 27.3
[2022-02-18 18:18] LABS: COVID19 -Nasal RAPID Negative (Negative)
== END ==
PROVIDERS: PCP Internal Medicine; Referring Provider Internal Medicine; Visit Provider Internal Medicine
DX: Z20.822 Contact with and (suspected) exposure to COVID-19 (principal)
CPT/HCPCS: 87635; C9803

== ENCOUNTER → 2022-02-19 09:19 | Outpatient (CLI) | payer MEDICARE, SELFPAY ==
[2020-12-21 01:03] VITALS: BMI 27.3
--- NOTE | 2022-03-01 17:11 | PM.PFT.1 ---
Pulmonary Function Test Referral & Results Date Patient Seen: 02/19/22 Requesting provider: Mckenzie Spring Results: The spirometry demonstrates an FVC of 3.05 L which is 79% of predicted. The FEV1 was measured at 2.53 L which is 93% of predicted. The FEV1/FVC ratio was 83 which is 116% of predicted. Following the administration of bronchodilator there was an 8% improvement in FEV1 and a 39% improvement in FEF 25-75%. Lung volumes show an SVC of 3.15 L which is 74% of predicted. The diffusing capacity was measured at 17.01 which is 54% of predicted. No hemoglobin value was provided, so no correction for potential anemia could be made, if appropriate. The maximum voluntary ventilation was normal Interpretation: This study demonstrates normal forced spirometry although there is some evidence of benefit following bronchodilator as above Lung volumes are minimally reduced suggesting the presence of mild restrictive lung disease Diffusing capacity is more notably reduced suggesting more significant disease at the capillary alveolar level Compared to PFTs performed in May 2021, current spirometry shows a slight decline in lung volumes verses previous however diffusing capacity is essentially unchanged Clinical correlation suggested
== END ==
PROVIDERS: PCP Internal Medicine; Referring Provider Internal Medicine Cardiovascular Disease; Visit Provider Internal Medicine Cardiovascular Disease
DX: Z79.899 Other long term (current) drug therapy (principal); Z87.891 Personal history of nicotine dependence; J98.8 Other specified respiratory disorders
CPT/HCPCS: 94060; 94726; 94729

== ENCOUNTER → 2022-05-26 15:25 | Outpatient (CLI) | payer MEDICARE, SELFPAY ==
[2020-12-21 01:03] VITALS: BMI 27.3
[2022-05-26 16:15] LABS: Alanine Aminotransferase 33 IU/L (<50); Albumin 4.4 g/dL (3.5-5.0); Albumin Globulin Ratio 1.7 (1.0-2.8); Alkaline Phosphatase 92 U/L (38-126); Aspartate Aminotransferase 35 IU/L (17-59); BUN Creatinine Ratio 21.1 (6-22); Bilirubin Total 0.4 mg/dL (0.2-1.3); Blood Urea Nitrogen 26 mg/dL (9-20); Calcium 9.1 mg/dL (8.4-10.2); Carbon Dioxide 28 mmol/L (22-32); Chloride 101 mmol/L (98-107); Cholesterol 103 mg/dL (140-199); Estimated Glomerular Filt Rate 59 mL/min (>60); Globulin 2.6 g/dL (1.7-4.1); Glucose 115 mg/dL (80-110); HDL Cholesterol 20 mg/dL (40-60); HEMOLYSIS < 15 (0-50); LDL Cholesterol Calculated 43 mg/dL (<100); Potassium 4.3 mmol/L (3.4-5.1); Sodium 140 mmol/L (137-145); Triglycerides 201 mg/dL (35-150)
[2022-05-26 16:45] LABS: Thyroid Stimulating Hormone 4.49 uIU/mL (0.47-4.68)
== END ==
PROVIDERS: PCP Internal Medicine; Referring Provider Internal Medicine Cardiovascular Disease; Visit Provider Internal Medicine Cardiovascular Disease
DX: Z79.899 Other long term (current) drug therapy (principal); I47.20 Ventricular tachycardia, unspecified; E78.5 Hyperlipidemia, unspecified
CPT/HCPCS: 36415; 80053; 80061; 84443

== ENCOUNTER → 2022-12-04 13:38 | Outpatient (CLI) | payer MEDICARE, SELFPAY ==
[2020-12-21 01:03] VITALS: BMI 27.3
[2022-12-04 17:48] LABS: Influenza A - CEPHEID Flu A NEGATIVE (NEGATIVE); Influenza B - CEPHEID Flu B NEGATIVE (NEGATIVE); Respiratory Syncytial Virus Negative (Negative)
[2022-12-04 17:49] LABS: COVID-19 CEPHEID 4-PLEX PCR Negative (Negative)
== END ==
PROVIDERS: PCP Internal Medicine; Visit Provider Physician Assistant
DX: R05.1 Acute cough (principal); Z20.822 Contact with and (suspected) exposure to COVID-19
CPT/HCPCS: 0241U

== ENCOUNTER → 2022-12-29 10:30 | Outpatient (CLI) | payer MEDICARE, SELFPAY ==
[2020-12-21 01:03] VITALS: BMI 27.3
[2022-12-29 11:17] LABS: Influenza A - CEPHEID Flu A NEGATIVE (NEGATIVE); Influenza B - CEPHEID Flu B NEGATIVE (NEGATIVE); Respiratory Syncytial Virus Negative (Negative)
[2022-12-29 11:29] LABS: COVID-19 CEPHEID 4-PLEX PCR Negative (Negative)
== END ==
PROVIDERS: PCP Internal Medicine; Visit Provider Physician Assistant
DX: R50.9 Fever, unspecified (principal); R68.83 Chills (without fever)
CPT/HCPCS: 0241U

== ENCOUNTER 2022-12-30 09:32 | Emergency (ER) | payer MEDICARE, SELFPAY ==
[2020-12-21 01:03] VITALS: BMI 27.3
[2022-12-30] VITALS (71 sets, daily range): BP systolic 99–139; BP diastolic 54–76; PULSE 60–105; RESP 15–32; TEMP 36.5; O2SAT 94–98; BMI 29.6
--- NOTE | 2022-12-30 09:43 | DI.RAD.S_ITS ---
PROCEDURE: XR CHEST 1V INDICATIONS: chest pain TECHNIQUE: One view of the chest was acquired. COMPARISON: [facility], CR, XR CHEST 1V, 12/20/2020, 19:23. FINDINGS: Surgical changes and devices: Sternotomy and CABG. There is a cardiac pacemaker. Lungs and pleura: Lungs are clear. No pleural effusions or pneumothorax. Mediastinum: Mediastinal contours appear normal. Heart size is normal. Bones and chest wall: No suspicious bony lesions. Overlying soft tissues appear unremarkable. IMPRESSION: No acute cardiopulmonary disease. Dictated by: Na Tang M.D. on 12/30/2022 at 9:59 Approved by: Na Tang M.D. on 12/30/2022 at 9:59
[2022-12-30 10:02] LABS: Add Manual Diff / Slide Review NO; Basophils Absolute Auto 0 /uL (0-100); Basophils Percent Auto 0.2 % (0-2); Eosinophils Absolute Auto 200 /uL (0-450); Eosinophils Percent Auto 5.6 % (2-4); Hematocrit 39.4 % (41-53); Hemoglobin 13.3 g/dL (13.5-17.5); Lymphocytes Absolute Auto 1300 /uL (1100-4500); Lymphocytes Percent Auto 32.3 % (25-40); Mean Corpuscular HGB Conc 33.7 % (30-36); Mean Corpuscular Hemoglobin 30.5 PG (26-34); Mean Corpuscular Volume 90.6 fL (80-100); Monocytes Absolute Auto 300 /uL (0-900); Monocytes Percent Auto 7.1 % (3-14); Neutrophils Absolute Auto 2100 /uL (1500-7000); Neutrophils Percent Auto 54.8 % (50-75); Platelet Count 87 X10^3/uL (150-400); Red Blood Cell Count 4.35 X10^6/uL (4.5-5.9); Red Cell Distribution Width 14.8 % (11.6-14.8); White Blood Cell Count 3.9 X10^3/uL (4.5-11.0)
--- NOTE | 2022-12-30 10:04 | DI.ECHO.S_ITS ---
[facility]---------+ [facility] +---------+ : : [address] : [address] : : : : [id number] : : : : Phone: [phone]+ Echocardiogram Report + + :Name: NADEEM PINZON Study Date: 12/30/2022 Height: 68 in : :[facility] ReadingLocation: Weight: 195 lb : : Gender: Male BSA: 2.0 m2 : :: 1940 Age: 82 yrs BP: 115/71 mmHg: :Reason For Study: CHEST PAIN : :Ordering Physician: BRYAN, : :HECTOR Performed By: Luci Melvin : :Referring: HECTOR ADAMS : + + Interpretation Summary The left ventricle is moderately dilated. There has been no significant change since the previous study. The ejection fraction is estimated to be 20-25%. There has been no significant change in LVEF since the previous exam. There is a moderate to severe global hypokinesis with akinesis of inferior wall, apex, mid to distal septum, posterolateral wall unchanged from the previous study. Basal LV segments appears to have relatively better contractility. The right ventricle is normal size. There is a pacemaker lead in the right ventricle. Right ventricular systolic function is mild to moderately reduced. Previously mildly reduced. There is moderate mitral regurgitation. Previously mild to moderate MR. Compared to the prior echo study, there has been an increase in the severity of mitral regurgitation. There is mild tricuspid regurgitation. Compared to the prior echo exam, there has been no change in TR severity. The right ventricular systolic pressure is estimated to be at least 33 mmHg based on an estimated right atrial pressure of 3 mm Hg. Procedure: A two-dimensional transthoracic echocardiogram with color flow and Doppler was performed. Comparison is made with the echocardiogram of 01/13/2021. A contrast injection of Definity was performed to improve assessment of LV function. The study quality was technically difficult. The heart rate ranged between 60 bpm during the study. The patient was in normal sinus rhythm during the exam. The patient has a paced rhythm. Left Ventricle: The left ventricle is moderately dilated. The estimated left ventricular end diastolic volume is 184 ml. There has been no significant change since the previous study. There is no thrombus. The ejection fraction is estimated to be 20-25%. There has been no significant change since the previous exam. There is a moderate to severe global hypokinesis with akinesis of inferior wall, apex, mid to distal septum, posterolateral wall unchanged from the previous study. Basal LV segments appears to have relatively better contractility. Diastolic function could not be accurately assessed due to paced rhythm. Right Ventricle: The right ventricle is normal size. There is a pacemaker lead in the right ventricle. Right ventricular systolic function is mild to moderately reduced. Atria: The left atrial size is normal. Right atrial size is normal. There is a catheter/pacemaker lead seen in the right atrium. There is no Doppler evidence for an interatrial shunt. Mitral Valve: The mitral valve leaflets appear mildly thickened, but open well. There is mild mitral annular calcification. The mitral valve chordae are thickened and/or calcified. There is moderate mitral regurgitation. Compared to the prior echo study, there has been an increase in the severity of mitral regurgitation. Aortic Valve: The aortic valve opens well. The aortic valve is not well visualized. There is no aortic valve stenosis. There is trace aortic regurgitation. Tricuspid Valve: The tricuspid valve is not well visualized, but is grossly normal. There is mild tricuspid regurgitation. The right ventricular systolic pressure is estimated to be at least 33 mmHg based on an estimated right atrial pressure of 3 mm Hg. Compared to the prior echo exam, there has been no change in TR severity. Pulmonic Valve: The pulmonic valve is not well visualized. There is mild pulmonic regurgitation. Great Vessels: The aortic root is normal size. The ascending aorta could not be visualized. The IVC is of normal diameter and collapses greater than 50% with a sniff. This suggests a low right atrial pressure of 3 mm Hg. Pericardium/ Pleura There is no pericardial effusion. There is no pleural effusion. MMode/2D Measurements & Calculations LVIDd: 6.6 cm LVOT diam: 2.3 cm LVIDs: 5.8 cm Ao root diam: 3.7 cm FS: 10.9 % Ao Arch Diam (Prox Trans): 3.3 cm IVSd: 0.76 cm LVPWd: 0.83 cm LV alexander. diameter/BSA (cm/m^2): 3.2 LV sys. diameter/BSA (cm/m^2): 2.9 LA A2 area: 18.7 cm2 RA long axis: 5.2 cm LA A4 area: 16.4 cm2 RA area: 20.0 cm2 LA length (vol): 5.3 cm RA vol: 65.4 ml LA vol: 49.3 ml RA : 32.4 ml/m2 LA vol index: 24.4 ml/m2 IVC diam: 1.7 cm RVD1 (basal): 3.7 cm TAPSE: 1.3 cm Doppler Measurements & Calculations Ao V2 max: 86.7 cm/sec LVOT Max Steven: 80.8 cm/sec Ao V2 mean: 64.1 cm/sec LV V1 max P.6 mmHg Ao max P.0 mmHg LV V1 VTI: 16.6 cm Ao mean P.8 mmHg CHE(I,D): 3.8 cm2 Ao V2 VTI: 18.8 cm CHE(V,D): 4.0 cm2 sev ratio: 0.88 CHE indexed to BSA (cm^2/m^2): 1.9 MV E max steven: 47.9 cm/sec TR max steven: 271.7 cm/sec MV A max steven: 74.0 cm/sec TR max P.5 mmHg MV E/A: 0.65 PA V2 max: 71.8 cm/sec Med Peak E' Steven: 4.6 cm/sec PA V2 mean: 49.8 cm/sec E/E' med: 10.3 PA mean P.1 mmHg Lat Peak E' Steven: 4.1 cm/sec PA pr(Accel): 43.0 mmHg E/E' lat: 11.7 E/e' average: 11.0 MV dec time: 0.26 sec SV(LVOT): 72.0 ml Reading Physician:02:03 PM
[2022-12-30 10:05] LABS: INR 1.3 (0.9-1.3); Prothrombin Time 14.7 SECONDS (10.1-12.7)
--- NOTE | 2022-12-30 10:05 | ED.ARRPALP ---
HPI - Arrhythmia/Palpitations General Chief Complaint: Arrhythmia/Palpitations Stated Complaint: High heartrate Time Seen by Provider: 12/30/22 09:57 Source: patient Mode of arrival: Ambulatory History of Present Illness HPI narrative: Patient brought here with for complaints of palpitations generalized weakness. No chest pain. No dyspnea. Patient has history frequent V-tach, has a defibrillator. Has not felt the shock. Patient here December 20, 2020 for the same and was admitted for IV amiodarone. 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 Has had sinusitis and being treated by provider with doxycycline. Patient also complains of dysuria. At this time we are sending off for interrogation of the pacemaker. Patient states he took his amiodarone this morning. He takes it every other day. Patient had several runs of V-tach here however he states he has minimal palpitations sensation. No chest pain. No syncope. Blood pressure has been stable. Related Data Home Medications Medication Instructions Recorded Confirmed aspirin 81 mg chewable tablet 81 mg PO DAILY 05/11/18 12/26/22 multivitamin 1 cap PO DAILY 05/11/18 12/26/22 tamsulosin 0.4 mg capsule (Flomax) 0.4 mg PO BID 05/11/18 12/26/22 ascorbic acid (vitamin C) 1,000 mg 1,000 mg PO Q12H 05/16/19 12/26/22 tablet,extended release atorvastatin 40 mg tablet 40 mg PO DAILY 05/16/19 12/26/22 eplerenone 25 mg tablet 25 mg PO DAILY 05/16/19 12/26/22 levothyroxine 25 mcg tablet 25 mcg PO DAILY 12/21/20 12/26/22 metformin 500 mg tablet,extended 1,000 mg PO BEDTIME 12/21/20 12/26/22 release 24 hr Respironics [employer]Station 03/19/21 12/26/22 nitroglycerin 0.4 mg sublingual 0.4 mg sublingual Q5M PRN Chest 03/17/22 12/26/22 tablet Pain sacubitril 24 mg-valsartan 26 mg 1 tab PO BID 03/17/22 12/26/22 tablet empagliflozin 10 mg tablet 10 mg PO DAILY 05/13/22 12/26/22 (Jardiance) Previous Rx's Medication Instructions Recorded metoprolol succinate 50 mg 50 mg PO BID #30 tabs 12/19/20 tablet,extended release 24 hr amiodarone 200 mg tablet 200 mg PO BID #28 tabs 12/21/20 doxycycline hyclate 100 mg capsule 100 mg PO BID #14 caps 12/29/22 Allergies Allergy/AdvReac Type Severity Reaction Status Date / Time amoxicillin Allergy Verified 12/30/22 09:43 Review of Systems Review of Systems Narrative: GENERAL: negative chills, fatigue, malaise, fever, sweats. HEENT: negative sinus pain, ear pain, sore throat RESPIRATORY: negative dyspnea, cough CARDIOVASCULAR: negative chest pain, positive palpitations GASTROINTESTINAL: negative nausea, vomiting, abdominal pain : Because dysuria, frequency, negative hematuria MUSCULOSKELETAL: negative muscle or bony pain SKIN: negative rash, skin lesions NEUROLOGIC: negative weakness, numbness ROS Unobtainable: All systems reviewed & are unremarkable except as noted in HPI and below Patient History Medical History BPH (benign prostatic hyperplasia) Congestive heart failure Coronary artery disease CPAP (continuous positive airway pressure) dependence Essential hypertension Hyperlipidemia Obstructive sleep apnea Thrombocytopenia Surgical History History of automatic internal cardiac defibrillator (AICD) History of heart bypass surgery Family History Father Heart disease Mother Hypertension Social History household members: spouse Smoking Status: Former smoker eating out: rarely or never Type(s) of exercise: walking Smoking Status: Former smoker alcohol intake frequency: holidays/special occasions only Substance Use Type: does not use Exam Narrative Exam Narrative: GENERAL: in no distress, not toxic not dyspneic HEAD: Normocephalic. EYES: Pupils equal round ENT: Mucous membranes moist. NECK: Trachea midline. CARDIOVASCULAR: Regular rate and rhythm without murmurs RESPIRATORY: Clear to auscultation. Breath sounds equal bilaterally. No wheezes, rales, or rhonchi. GASTROINTESTINAL: Abdomen soft, non-tender EXTREMITIES: No gross deformities. BACK: No flank tenderness. NEURO: AOx4. SKIN: Warm and dry PSYCH: Not anxious, is cooperative Initial Vital Signs Initial Vital Signs: Vital Signs Temperature 97.7 F 12/30/22 09:35 Pulse Rate 88 12/30/22 09:35 Respiratory Rate 15 12/30/22 09:35 Blood Pressure 119/66 12/30/22 09:35 Pulse Oximetry 98 12/30/22 09:35 Oxygen Delivery Method Room Air 12/30/22 09:35 Course Orders Ordered: ED Orders 12/30/22 09:43 XR chest 1V Stat EKG-12 Lead Stat 12/30/22 09:45 Complete Blood Count AUTO DIFF Stat Comprehensive Metabolic Panel Stat Lipase Stat Magnesium Stat PTT Partial Thromboplastin Jose Luis Stat Prothrombin Time INR Stat Troponin & CK Cardiac Panel Stat 12/30/22 09:55 EKG-12 Lead Routine 12/30/22 10:04 EC echo doppler complete Stat Vital Signs Vital signs: Vital Signs - 8 hr 12/30/22 09:35 12/30/22 09:40 12/30/22 09:40 Temperature 97.7 F Pulse Rate 88 92 H Respiratory Rate 15 Blood Pressure 119/66 119/66 Pulse Oximetry 98 98 Oxygen Delivery Method Room Air 12/30/22 09:45 12/30/22 09:50 12/30/22 09:55 Temperature Pulse Rate 74 67 Respiratory Rate 20 22 Blood Pressure 117/73 Pulse Oximetry 97 97 Oxygen Delivery Method 12/30/22 09:55 12/30/22 09:59 12/30/22 09:59 Temperature Pulse Rate 103 H 105 H Respiratory Rate 18 21 Blood Pressure 115/70 Pulse Oximetry 98 98 Oxygen Delivery Method 12/30/22 10:00 12/30/22 10:00 12/30/22 10:05 Temperature Pulse Rate 104 H 69 Respiratory Rate 23 23 Blood Pressure 118/72 Pulse Oximetry 98 97 Oxygen Delivery Method 12/30/22 10:10 12/30/22 10:10 12/30/22 10:15 Temperature Pulse Rate 67 63 Respiratory Rate 20 20 Blood Pressure 115/64 Pulse Oximetry 96 95 Oxygen Delivery Method 12/30/22 10:20 12/30/22 10:20 12/30/22 10:25 Temperature Pulse Rate 72 62 Respiratory Rate 22 22 Blood Pressure 112/68 Pulse Oximetry 96 96 Oxygen Delivery Method 12/30/22 10:30 12/30/22 10:30 12/30/22 10:35 Temperature Pulse Rate 60 60 Respiratory Rate 22 20 Blood Pressure 101/55 L Pulse Oximetry 95 95 Oxygen Delivery Method 12/30/22 10:40 12/30/22 10:40 12/30/22 10:45 Temperature Pulse Rate 60 83 Respiratory Rate 18 23 Blood Pressure 112/61 Pulse Oximetry 95 Oxygen Delivery Method 12/30/22 10:50 12/30/22 10:50 12/30/22 10:55 Temperature Pulse Rate 81 75 Respiratory Rate 20 20 Blood Pressure 127/69 Pulse Oximetry 97 95 Oxygen Delivery Method 12/30/22 11:00 12/30/22 11:00 12/30/22 11:05 Temperature Pulse Rate 62 60 Respiratory Rate 19 21 Blood Pressure 104/60 Pulse Oximetry 95 96 Oxygen Delivery Method 12/30/22 11:10 12/30/22 11:10 12/30/22 11:15 Temperature Pulse Rate 60 60 Respiratory Rate 18 19 Blood Pressure 107/58 L Pulse Oximetry 95 95 Oxygen Delivery Method 12/30/22 11:20 12/30/22 11:20 12/30/22 11:25 Temperature Pulse Rate 62 60 Respiratory Rate 19 20 Blood Pressure 110/65 Pulse Oximetry 94 96 Oxygen Delivery Method 12/30/22 11:30 12/30/22 11:30 12/30/22 11:35 Temperature Pulse Rate 60 62 Respiratory Rate 19 24 Blood Pressure 110/63 Pulse Oximetry 94 96 Oxygen Delivery Method 12/30/22 11:40 12/30/22 11:40 12/30/22 11:45 Temperature Pulse Rate 63 66 Respiratory Rate 23 19 Blood Pressure 99/56 L Pulse Oximetry 96 95 Oxygen Delivery Method 12/30/22 11:50 12/30/22 11:50 12/30/22 11:55 Temperature Pulse Rate 60 60 Respiratory Rate 18 18 Blood Pressure 109/61 Pulse Oximetry 95 95 Oxygen Delivery Method 12/30/22 12:00 12/30/22 12:00 12/30/22 12:05 Temperature Pulse Rate 64 60 Respiratory Rate 20 22 Blood Pressure 115/71 Pulse Oximetry 97 96 Oxygen Delivery Method 12/30/22 12:10 12/30/22 12:10 12/30/22 12:15 Temperature Pulse Rate 68 77 Respiratory Rate 23 18 Blood Pressure 111/66 Pulse Oximetry 96 95 Oxygen Delivery Method 12/30/22 12:20 12/30/22 12:20 12/30/22 12:25 Temperature Pulse Rate 62 60 Respiratory Rate 21 21 Blood Pressure 101/54 L Pulse Oximetry 95 96 Oxygen Delivery Method 12/30/22 12:30 12/30/22 12:30 12/30/22 13:35 Temperature Pulse Rate 60 60 Respiratory Rate 21 23 Blood Pressure 106/58 L Pulse Oximetry 94 97 Oxygen Delivery Method 12/30/22 13:40 12/30/22 13:40 12/30/22 13:45 Temperature Pulse Rate 60 60 Respiratory Rate 19 21 Blood Pressure 111/63 Pulse Oximetry 95 96 Oxygen Delivery Method 12/30/22 13:50 12/30/22 13:50 12/30/22 13:55 Temperature Pulse Rate 60 60 Respiratory Rate 19 18 Blood Pressure 113/65 Pulse Oximetry 95 94 Oxygen Delivery Method 12/30/22 14:00 12/30/22 14:00 12/30/22 14:05 Temperature Pulse Rate 61 60 Respiratory Rate 19 17 Blood Pressure 116/59 L Pulse Oximetry 94 94 Oxygen Delivery Method 12/30/22 14:10 12/30/22 14:10 12/30/22 14:15 Temperature Pulse Rate 63 60 Respiratory Rate 19 18 Blood Pressure 118/59 L Pulse Oximetry 95 94 Oxygen Delivery Method 12/30/22 14:20 12/30/22 14:20 12/30/22 14:25 Temperature Pulse Rate 80 63 Respiratory Rate 20 19 Blood Pressure 105/65 Pulse Oximetry 94 95 Oxygen Delivery Method 12/30/22 14:30 12/30/22 14:35 12/30/22 14:40 Temperature Pulse Rate 73 83 Respiratory Rate 32 H 24 Blood Pressure 139/69 Pulse Oximetry 95 97 Oxygen Delivery Method 12/30/22 14:40 12/30/22 14:45 12/30/22 14:50 Temperature Pulse Rate 75 62 Respiratory Rate 20 20 Blood Pressure 114/64 Pulse Oximetry 96 95 Oxygen Delivery Method 12/30/22 14:50 12/30/22 14:55 12/30/22 15:00 Temperature Pulse Rate 60 60 Respiratory Rate 19 19 Blood Pressure 115/67 Pulse Oximetry 94 94 Oxygen Delivery Method 12/30/22 15:00 12/30/22 15:05 12/30/22 15:10 Temperature Pulse Rate 61 60 Respiratory Rate 19 24 Blood Pressure 116/69 Pulse Oximetry 94 95 Oxygen Delivery Method 12/30/22 15:10 12/30/22 15:15 12/30/22 15:20 Temperature Pulse Rate 60 60 Respiratory Rate 20 20 Blood Pressure 117/65 Pulse Oximetry 95 94 Oxygen Delivery Method 12/30/22 15:20 12/30/22 15:25 12/30/22 15:30 Temperature Pulse Rate 60 72 Respiratory Rate 19 19 Blood Pressure 120/68 Pulse Oximetry 94 96 Oxygen Delivery Method 12/30/22 15:30 12/30/22 15:35 12/30/22 15:40 Temperature Pulse Rate 68 61 Respiratory Rate 21 19 Blood Pressure 121/67 Pulse Oximetry 95 95 Oxygen Delivery Method 12/30/22 15:40 12/30/22 15:45 12/30/22 15:50 Temperature Pulse Rate 60 60 Respiratory Rate 20 20 Blood Pressure 118/65 Pulse Oximetry 95 95 Oxygen Delivery Method 12/30/22 15:50 12/30/22 15:55 12/30/22 16:00 Temperature Pulse Rate 60 68 Respiratory Rate 19 21 Blood Pressure 120/68 Pulse Oximetry 95 97 Oxygen Delivery Method 12/30/22 16:00 12/30/22 16:05 12/30/22 16:10 Temperature Pulse Rate 61 60 Respiratory Rate 21 26 H Blood Pressure 120/69 Pulse Oximetry 96 96 Oxygen Delivery Method 12/30/22 16:10 12/30/22 16:15 12/30/22 16:20 Temperature Pulse Rate 60 60 Respiratory Rate 20 20 Blood Pressure 124/76 Pulse Oximetry 96 95 Oxygen Delivery Method 12/30/22 16:20 Temperature Pulse Rate 60 Respiratory Rate 26 H Blood Pressure Pulse Oximetry 96 Oxygen Delivery Method MDM - Arrhythmia/Palpitations Lab Data 12/30/22 09:45 12/30/22 09:45 Labs: Lab Results 12/30/22 12/30/22 12/30/22 Range/Units 09:45 09:45 09:45 WBC 3.9 L (4.5-11.0) X10^3/uL RBC 4.35 L (4.5-5.9) X10^6/uL Hgb 13.3 L (13.5-17.5) g/dL Hct 39.4 L (41-53) % MCV 90.6 (80-100) fL MCH 30.5 (26-34) PG MCHC 33.7 (30-36) % RDW 14.8 (11.6-14.8) % Plt Count 87 L (150-400) X10^3/uL Neut % (Auto) 54.8 (50-75) % Lymph % (Auto) 32.3 (25-40) % [place] % (Auto) 7.1 (3-14) % Eos % (Auto) 5.6 H (2-4) % Baso % (Auto) 0.2 (0-2) % Neut # (Auto) 2100 (7965-8470) /uL Lymph # (Auto) 1300 (5927-9112) /uL [place] # (Auto) 300 (0-900) /uL Eos # (Auto) 200 (0-450) /uL Baso # (Auto) 0 (0-100) /uL PT 14.7 H (10.1-12.7) SECONDS INR 1.3 (0.9-1.3) APTT 29 (26-36) SECONDS Sodium 135 L (137-145) mmol/L Potassium 4.7 (3.4-5.1) mmol/L Chloride 100 (98-107) mmol/L Carbon Dioxide 25 (22-32) mmol/L BUN 42 H (9-20) mg/dL Creatinine 1.65 H (0.66-1.25) mg/dL Estimated GFR 41 L (>60) mL/min BUN/Creatinine Ratio 25.5 H (6-22) Glucose 151 H (80-110) mg/dL Calcium 9.0 (8.4-10.2) mg/dL Magnesium 2.3 (1.6-2.3) mg/dL Total Bilirubin 0.4 (0.2-1.3) mg/dL AST 43 (17-59) IU/L ALT 42 (<50) IU/L Alkaline Phosphatase 77 (38-126) U/L Total Creatine Kinase 101 (55-170) U/L Troponin I < 0.012 (0.01-0.034) ng/mL Total Protein 7.0 (6.3-8.2) g/dL Albumin 4.0 (3.5-5.0) g/dL Globulin 3.0 (1.7-4.1) g/dL Albumin/Globulin Ratio 1.3 (1.0-2.8) Lipase 140 (23-300) U/L Urine Dip Bedside Urine Glucose 1000 mg/dl Bedside Urine Bilirubin - Negative Bedside Urine Ketone - Negative Urine Specific [place] 1.015 Bedside Urine Occult Blood +/- Bedside Urine pH 5.5 Bedside Urine Protein +/- 15 Bedside Urine Urobilinogen - Negative Bedside Urine Nitrite - Negative Bedside Urine Leukocytes - Negative Esterase Imaging Data Chest x-ray: Radiologist's Impresson: [address] [address] XRay Report Signed Patient: Nadeem Lawrence MR#: [id number] : 1940 Acct:[id number] Age/Sex: 82 / M Date of Service: 12/30/22 Loc: ED Accession Number: [id number] ?? Procedure: XR chest 1V Ordering Provider: Hector Adams MD PROCEDURE:? XR CHEST 1V ? INDICATIONS:? chest pain ? TECHNIQUE:? One view of the chest was acquired.? ? COMPARISON:? [facility], , XR CHEST 1V, 12/20/2020, 19:23. ? FINDINGS:? ? Surgical changes and devices:? Sternotomy and CABG.? There is a cardiac pacemaker.? ? Lungs and pleura:? Lungs are clear.? No pleural effusions or pneumothorax.? ? Mediastinum:? Mediastinal contours appear normal.? Heart size is normal.? ? Bones and chest wall:? No suspicious bony lesions.? Overlying soft tissues appear unremarkable.? ? IMPRESSION:? No acute cardiopulmonary disease. ? ? Dictated by: Na Tang M.D. on 12/30/2022 at 9:59 ? ? Approved by: Na Tang M.D. on 12/30/2022 at 9:59 ? Echocardiogram: Radiologist's Impresson: [address] [address] Echocardiography Report Signed Patient: Nadeem Lawrence MR#: [id number] : 1940 Acct:[id number] Age/Sex: 82 / M Date of Service: 12/30/22 Loc: ED Accession Number: [id number] ?? Procedure: EC echo doppler complete Ordering Provider: Hector Adams MD ? [facility] +---------+? Hospital? +---------+ : ? :? [address] ? : ? : : ? :? [place], [place] ? : ? : : ? :? [id number] ? : ? : : ? : ? Phone: [phone] : ? : [phone]? [phone]? +---------+ ? Echocardiogram Report + + :Name: NADEEM LAWRENCE? Study Date: 12/30/2022 ? Height: 68 in? : :Hospital ? ? ReadingLocation: ? Weight: 195 lb : : ? Gender: Male ? BSA: 2.0 m2? ? : :: 1940? Age: 82 yrs? BP: 115/71 mmHg: :Reason For Study: CHEST PAIN ? : :Ordering Physician: BRYAN,? : :HECTOR? Performed By: Luci Melvin? : :Referring: HECTOR ADAMS ? : + + Interpretation Summary The left ventricle is moderately dilated. There has been no significant change since the previous study. The ejection fraction is estimated to be 20-25%. There has been no significant change in LVEF since the previous exam. There is a moderate to severe global hypokinesis with akinesis of inferior wall, apex, mid to distal septum, posterolateral wall unchanged from the previous study. Basal LV segments appears to have relatively better contractility. ? The right ventricle is normal size. There is a pacemaker lead in the right ventricle. Right ventricular systolic function is mild to moderately reduced. Previously mildly reduced. ? There is moderate mitral regurgitation. Previously mild to moderate MR. Compared to the prior echo study, there has been an increase in the severity of mitral regurgitation. ? There is mild tricuspid regurgitation. Compared to the prior echo exam, there has been no change in TR severity. The right ventricular systolic pressure is estimated to be at least 33 mmHg based on an estimated right atrial pressure of 3 mm Hg. ? Procedure: ? A two-dimensional transthoracic echocardiogram with color flow and Doppler was performed. Comparison is made with the echocardiogram of 01/13/2021. A contrast injection of Definity was performed to improve assessment of LV function. The study quality was technically difficult. The heart rate ranged between 60 bpm during the study. The patient was in normal sinus rhythm during the exam. The patient has a paced rhythm. Left Ventricle: ? The left ventricle is moderately dilated. The estimated left ventricular end diastolic volume is 184 ml. There has been no significant change since the previous study. There is no thrombus. The ejection fraction is estimated to be 20-25%. There has been no significant change since the previous exam. There is a moderate to severe global hypokinesis with akinesis of inferior wall, apex, mid to distal septum, posterolateral wall unchanged from the previous study. Basal LV segments appears to have relatively better contractility. Diastolic function could not be accurately assessed due to paced rhythm. Right Ventricle: ? The right ventricle is normal size. There is a pacemaker lead in the right ventricle. Right ventricular systolic function is mild to moderately reduced. Atria: ? The left atrial size is normal. Right atrial size is normal. There is a catheter/pacemaker lead seen in the right atrium. There is no Doppler evidence for an interatrial shunt. Mitral Valve: ? The mitral valve leaflets appear mildly thickened, but open well. There is mild mitral annular calcification. The mitral valve chordae are thickened and/or calcified. There is moderate mitral regurgitation. Compared to the prior echo study, there has been an increase in the severity of mitral regurgitation. Aortic Valve: ? The aortic valve opens well. The aortic valve is not well visualized. There is no aortic valve stenosis. There is trace aortic regurgitation. Tricuspid Valve: ? The tricuspid valve is not well visualized, but is grossly normal. There is mild tricuspid regurgitation. The right ventricular systolic pressure is estimated to be at least 33 mmHg based on an estimated right atrial pressure of 3 mm Hg. Compared to the prior echo exam, there has been no change in TR severity. Pulmonic Valve: ? The pulmonic valve is not well visualized. There is mild pulmonic regurgitation. Great Vessels: ? The aortic root is normal size. The ascending aorta could not be visualized. The IVC is of normal diameter and collapses greater than 50% with a sniff. This suggests a low right atrial pressure of 3 mm Hg. Pericardium/ Pleura ? There is no pericardial effusion. There is no pleural effusion. ? MMode/2D Measurements & Calculations LVIDd: 6.6 cm? LVOT diam: 2.3 cm LVIDs: 5.8 cm? Ao root diam: 3.7 cm FS: 10.9 % ? Ao Arch Diam (Prox Trans): 3.3 cm IVSd: 0.76 cm LVPWd: 0.83 cm LV alexander. diameter/BSA (cm/m^2): 3.2 LV sys. diameter/BSA (cm/m^2): 2.9 ? LA A2 area: 18.7 cm2 ? RA long axis: 5.2 cm LA A4 area: 16.4 cm2 ? RA area: 20.0 cm2 LA length (vol): 5.3 cm? RA vol: 65.4 ml LA vol: 49.3 ml? RA : 32.4 ml/m2 LA vol index: 24.4 ml/m2 ? IVC diam: 1.7 cm ? RVD1 (basal): 3.7 cm TAPSE: 1.3 cm ? Doppler Measurements & Calculations Ao V2 max: 86.7 cm/sec? LVOT Max Steven: 80.8 cm/sec Ao V2 mean: 64.1 cm/sec ? LV V1 max P.6 mmHg Ao max P.0 mmHg ? LV V1 VTI: 16.6 cm Ao mean P.8 mmHg? CHE(I,D): 3.8 cm2 Ao V2 VTI: 18.8 cm? CHE(V,D): 4.0 cm2 ? sev ratio: 0.88 ? CHE indexed to BSA (cm^2/m^2): 1.9 ? MV E max steven: 47.9 cm/sec ? TR max steven: 271.7 cm/sec MV A max steven: 74.0 cm/sec ? TR max P.5 mmHg MV E/A: 0.65? PA V2 max: 71.8 cm/sec Med Peak E' Steven: 4.6 cm/sec ? ? ? PA V2 mean: 49.8 cm/sec E/E' med: 10.3? PA mean P.1 mmHg Lat Peak E' Steven: 4.1 cm/sec ? ? ? PA pr(Accel): 43.0 mmHg E/E' lat: 11.7 E/e' average: 11.0 MV dec time: 0.26 sec ? SV(LVOT): 72.0 ml ? Reading Physician:02:03 PM [facility] Narrative Medical decision making narrative: Patient brought here with for complaints of palpitations generalized weakness. No chest pain. No dyspnea. Patient has history frequent V-tach, has a defibrillator. Has not felt the shock. Patient here December 20, 2020 for the same and was admitted for IV amiodarone. 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 Has had sinusitis and being treated by provider with doxycycline. Patient also complains of dysuria. At this time we are sending off for interrogation of the pacemaker. Patient states he took his amiodarone this morning. He takes it every other day. Patient had several runs of V-tach here however he states he has minimal palpitations sensation. No chest pain. No syncope. Blood pressure has been stable. After history and exam CBC CMP magnesium EKG troponin chest x-ray urinalysis [facility] CC: Palpitations dysuria Complicating co-morbidities: History of ischemic cardiomyopathy with pacer defibrillator hyperlipidemia hypertension CHF Data collected from: Patient and Medical records reviewed: ER visit here December 20, 2020 for the same complaint Differential considered: Includes but not limited to breakthrough V-tach, STEMI, UTI, sinusitis Exam documented above, pertinent findings include: Occasional V-tach runs but pacemaker responding Lab Test results independently reviewed as above. Pertinent findings: WBC 3.9 hemoglobin 13.3 INR 1.3 Sodium 135 potassium 4.7 BUN 42 creatinine 1.65 GFR 41 magnesium 2.3 calcium 9.0 troponin less than 0.012 total CK 101 Independently reviewed EKG AV dual paced rhythm with prolonged AV conduction. Rate 70 Repeat EKG av dual paced rhythm rate 103 Imaging studies independently reviewed: Chest x-ray no acute finding Echocardiogram unchanged from previous study Consultations: 10:[address] Jordan, EP Cardiology, he knows patient very well. He will review interrogation with the [employer] therapy technician. 10:[address] Jordan again, he spoke with [employer] therapy technician, he will have a therapy technician come out to see patient here to review the pacemaker. No medications he desires at this time for patient. 3:30 p.m.. I spoke with Dr. Jordan in his staff, patient is cleared from cardiac standpoint. No new medications or changes indicated. Patient has appointment follow up with his fiberglass container winding operator next week. Treatments: None required here. Re-evaluations: Reviewed results with patient and . At this time they are reassuring. Patient did have a fever on Wednesday which has resolved. On Wednesday he was very tired and weak. But no chest pain or shortness of breath. He was given doxycycline yesterday and it was started. Treating for sinusitis. He did have some urinary frequency and time and has never had his prostate checked. He will receive referral for Urology from here. Not toxic at discharge. He states his urination has improved today. Return precautions reviewed. They desire discharge home Discussion: Appropriate for discharge home. Patient was essentially asymptomatic except for palpitations sensation but no distress or chest pain shortness of breath or hypotensive with rhythm here. And that was reviewed by Cardiology and interrogated by [employer] therapy technician here. Not dangerous rhythm that patient experienced. Appropriate for discharge home, laboratory studies imaging otherwise reassuring. Echocardiogram unchanged from previous study. Patient and desire discharge home. Return precautions reviewed. Diagnosis: Palpitations Discharge Plan Departure Patient Disposition: Home Clinical Impression: Intermittent palpitations Instructions: DI for Arrhythmias Activity Restrictions/Additional Instructions: Continue home medications. See your fiberglass container winding operator as scheduled next week. Return if worse if any questions or concerns. See your family doctor within a week for re-evaluation. Please do call provided urology office for evaluation your prostate. No new medications or indicated or changes to your current medications. Prescriptions: No Action doxycycline hyclate 100 mg capsule 100 mg PO BID Qty: 14 0RF metoprolol succinate 50 mg tablet extended release 24 hr 50 mg PO BID Qty: 30 0RF tamsulosin [Flomax] 0.4 mg Capsule 0.4 mg PO BID aspirin 81 mg Tablet,Chewable 81 mg PO DAILY multivitamin Capsule 1 cap PO DAILY atorvastatin 40 mg Tablet 40 mg PO DAILY ascorbic acid (vitamin C) 1,000 mg Tablet Extended Release 1,000 mg PO Q12H eplerenone 25 mg Tablet 25 mg PO DAILY Jardiance 10 mg Tablet 10 mg PO DAILY levothyroxine 25 mcg Tablet 25 mcg PO DAILY metformin 500 mg Tablet Extended Release 24 Hr 1,000 mg PO BEDTIME amiodarone 200 mg tablet 200 mg PO BID Qty: 28 0RF (DME) Respironics DreamStation See Rx Instructions .Route .MEDSUPPLY Rx Instructions: CPAP [facility]Station Min: 6 Max: 12 DME: [place] sacubitril-valsartan 24-26 mg tablet 1 tab PO BID nitroglycerin 0.4 mg tablet, sublingual 0.4 mg sublingual Q5M PRN (Reason: Chest Pain) Rx Instructions: do not exceed 3 doses per episode Referrals: Hector Levine MD [Physician] - Carrie Garcia MD [Primary Care Provider] - Stand Alone Forms: Patient Portal/API
--- NOTE | 2022-12-30 10:05 | PC.NURSE ---
9 minute run of V Tach rate 104 with stable Blood Pressures, MD aware, verified with repeat EKG, patient placed with cardioversion/pacer pads on chest if needed and Zoll near bedside but not connected. Patient remains on continous ECG/O2/q10 min NIBP.
[2022-12-30 10:08] LABS: PTT Partial Thromboplastin Tim 29 SECONDS (26-36)
[2022-12-30 10:20] LABS: Alanine Aminotransferase 42 IU/L (<50); Albumin Globulin Ratio 1.3 (1.0-2.8); Alkaline Phosphatase 77 U/L (38-126); Aspartate Aminotransferase 43 IU/L (17-59); BUN Creatinine Ratio 25.5 (6-22); Bilirubin Total 0.4 mg/dL (0.2-1.3); Blood Urea Nitrogen 42 mg/dL (9-20); Carbon Dioxide 25 mmol/L (22-32); Chloride 100 mmol/L (98-107); Creatine Kinase 101 U/L (55-170); Estimated Glomerular Filt Rate 41 mL/min (>60); Glucose 151 mg/dL (80-110); HEMOLYSIS < 15 (0-50); Lipase 140 U/L (23-300); Magnesium 2.3 mg/dL (1.6-2.3); Potassium 4.7 mmol/L (3.4-5.1); Sodium 135 mmol/L (137-145)
[2022-12-30 10:30] LABS: Troponin I < 0.012 ng/mL (0.01-0.034)
--- NOTE | 2022-12-30 12:52 | PC.NURSE ---
Patient pacemaker being interrogated by [employer].
== END 2022-12-30 16:43 | disposition home or self-care (01) ==
PROVIDERS: Emergency Provider Emergency Medicine; PCP Internal Medicine
DX: R00.2 Palpitations (principal); R30.0 Dysuria; R07.9 Chest pain, unspecified
CPT/HCPCS: 36415; 71045; 80053; 81003; 82550; 83690; 83735; 84484; 85025; 85610; 85730; 93005; 93306; 99284

== ENCOUNTER 2023-08-22 16:22 | Inpatient (IN) | payer MEDICARE, SELFPAY ==
[2020-12-21 01:03] VITALS: BMI 27.3
[2023-08-22] VITALS (43 sets, daily range): BP systolic 73–142; BP diastolic 51–71; PULSE 59–140; RESP 17–27; TEMP 36.1–36.3; O2SAT 94–100; BMI 26.5; BMI 26.9
--- NOTE | 2023-08-22 16:38 | DI.RAD.S_ITS ---
PROCEDURE: XR CHEST 1V INDICATIONS: chest pain TECHNIQUE: One view of the chest was acquired. COMPARISON: [facility], CR, XR CHEST 1V, 12/30/2022, 9:45. FINDINGS: Surgical changes and devices: Left chest wall AICD device. Median sternotomy wire. Lungs and pleura: Lung volumes are slightly low, but otherwise lungs are clear. No pleural effusions or pneumothorax. Mediastinum: Mediastinal contours appear normal. Heart size is normal. Bones and chest wall: No suspicious bony lesions. Overlying soft tissues appear unremarkable. IMPRESSION: Lung volumes are slightly low, but otherwise lungs are clear. Approved by: Kasey Simon M.D. on 08/22/2023 at 16:08
[2023-08-22] MEDS: ASPIRIN 81 MG CHEW TAB 324 MG PO (16:42)
--- NOTE | 2023-08-22 16:47 | ED.ARRPALP ---
HPI - Arrhythmia/Palpitations General Chief Complaint: Arrhythmia/Palpitations Stated Complaint: HR high/ BP up/ anxious T-0 Time Seen by Provider: 08/22/23 16:42 Source: patient Mode of arrival: Ambulatory History of Present Illness HPI narrative: 83-year-old male with history of ischemic cardiomyopathy with AICD in place presents by private vehicle from home for palpitations and variable blood pressure since 10:00 a.m. this morning. Patient was working on his mower when he began to feel symptoms. He waited at home to see if they would get better but they did not and so he decided to present for evaluation. On arrival patient noted to be tachycardic at a rate of 135 beats per minute. Patient takes a daily baby aspirin, denies use of other blood thinners. Related Data Home Medications Medication Instructions Recorded Confirmed aspirin 81 mg chewable tablet 81 mg PO DAILY 05/11/18 08/22/23 multivitamin 1 cap PO DAILY 05/11/18 08/22/23 ascorbic acid (vitamin C) 1,000 mg 1,000 mg PO Q12H 05/16/19 08/22/23 tablet,extended release atorvastatin 40 mg tablet 40 mg PO DAILY 05/16/19 08/22/23 eplerenone 25 mg tablet 25 mg PO DAILY 05/16/19 08/22/23 metformin 500 mg tablet,extended 1,500 mg PO BEDTIME 12/21/20 08/22/23 release 24 hr Respironics [facility]Station 03/19/21 08/22/23 nitroglycerin 0.4 mg sublingual 0.4 mg sublingual Q5M PRN Chest 03/17/22 08/22/23 tablet Pain finasteride 5 mg tablet 5 mg PO DAILY 05/13/23 08/22/23 furosemide 20 mg tablet 20 mg PO QWEEK 05/13/23 08/22/23 meloxicam 7.5 mg tablet 7.5 mg PO DAILY 05/13/23 08/22/23 amiodarone 100 mg tablet 50 mg PO Q OTHER DAY 08/22/23 08/22/23 empagliflozin 10 mg tablet 10 mg PO DAILY 08/22/23 08/22/23 (Jardiance) ketoconazole 2 % topical cream 1 applic topical DAILY feet 08/22/23 08/22/23 levothyroxine 88 mcg tablet 88 mcg PO DAILY 08/22/23 08/22/23 metoprolol succinate 50 mg 50 mg PO BID 08/22/23 08/22/23 tablet,extended release 24 hr sacubitril 49 mg-valsartan 51 mg 1 tab PO BID 08/22/23 08/22/23 tablet (Entresto) tamsulosin 0.4 mg capsule 0.8 mg PO DAILY 08/22/23 08/22/23 Allergies Allergy/AdvReac Type Severity Reaction Status Date / Time amoxicillin Allergy Verified 05/13/23 08:20 Review of Systems Review of Systems Narrative: Negative except as noted above Patient History Medical History CPAP (continuous positive airway pressure) dependence Obstructive sleep apnea BPH (benign prostatic hyperplasia) Hyperlipidemia Essential hypertension Coronary artery disease Congestive heart failure Thrombocytopenia Surgical History History of automatic internal cardiac defibrillator (AICD) History of heart bypass surgery Family History Father Heart disease Mother Hypertension Social History household members: spouse Smoking Status: Former smoker eating out: rarely or never Type(s) of exercise: walking Smoking Status: Former smoker alcohol intake frequency: holidays/special occasions only Substance Use Type: does not use Exam Initial Vital Signs Initial Vital Signs: Vital Signs Temperature 97.0 F L 08/22/23 16:32 Pulse Rate 130 H 08/22/23 16:32 Respiratory Rate 18 08/22/23 16:32 Blood Pressure 142/67 H 08/22/23 16:32 Pulse Oximetry 97 08/22/23 16:32 Oxygen Delivery Method Room Air 08/22/23 16:32 Const: Awake, alert, no acute distress, nontoxic appearing Cardiac: tachycardia, regular rhythm RESP: unlabored, clear bilaterally, no wheezing GI: Soft, nontender, nondistended, no rebound, no guarding MSK: Atraumatic, full range of motion, pulses equal Skin: Warm, Dry, intact, no rashes Neuro: AO x3, CN II-XII grossly intact, moves all extremities Procedures Cardioversion Consent Signed: Yes Stability: Stable Number of attempts (shocks): 1 Joules used: 200 Cardiac rhythm post-cardioversion: Sinus rhythm Procedural Sedation Consent signed: Yes Time out performed: Yes Indication: cardioversion ASA Class: III Mallampati Airway Classification: Class II Time of Last PO Intake: 12:00 Preparation: phototypesetting equipment monitor applied, pulse oximeter, capnometry used, supplemental O2 applied, suction/airway equipment at bedside and IV secured IV Etomidate dose (mg): 10 Intraservice time/total sedation time (min): 10 ED Sedation Level: Moderate (Concious) Patient Tolerated Procedure: Well and No complications Complications: none Course Orders Ordered: ED Orders 08/22/23 16:38 XR chest 1V Stat 08/22/23 16:45 EKG-12 Lead Stat 08/22/23 16:49 Complete Blood Count AUTO DIFF Stat Comprehensive Metabolic Panel Stat Lipase Stat Magnesium Stat PTT Partial Thromboplastin Jose Luis Stat Prothrombin Time INR Stat Troponin & CK Cardiac Panel Stat Heparin Sodium/Dextrose (Heparin Drip) 25,000 unit in 500 mls @ 20.14 mls/hr IV CONT BRUNO; Protocol Last Admin: 08/22/23 17:06 Dose: 12 units/kg/hr, 20.14 mls/hr Documented By: TOM Co-signed By: LYNNETTE Amiodarone HCl/Dextrose (Nexterone) 360 mg in 200 mls @ 33.333 mls/hr IV NOW ONE; Protocol Stop: 08/22/23 23:27 Last Admin: 08/22/23 17:34 Dose: 33.333 mls/hr, 33.33 mls/hr Documented By: TOM Discontinued Medications Aspirin (Aspirin 81 Mg Chew Tab) 324 mg PO NOW ONE Stop: 08/22/23 16:38 Last Admin: 08/22/23 16:42 Dose: 324 mg Documented By: LYNNETTE Etomidate (Etomidate 2 Mg/Ml 10 Ml Vial) 10 mg IV NOW ONE Stop: 08/22/23 17:35 Heparin Sodium (Porcine) (Heparin 5,000 Unit/Ml Vial) 5,000 unit 60 unit/kg (5000 unit) IV NOW ONE Stop: 08/22/23 17:00 Last Admin: 08/22/23 17:06 Dose: 5,000 unit Documented By: TOM Amiodarone HCl/Dextrose (Nexterone) 150 mg in 100 mls @ 600 mls/hr IV NOW ONE; Protocol Stop: 08/22/23 17:25 Last Infusion: 08/22/23 17:34 Dose: Infused Documented By: Admin: 08/22/23 17:21 Dose: 600 mls/hr Documented By: TOM Vital Signs Vital signs: Vital Signs - 8 hr 08/22/23 16:32 08/22/23 16:41 08/22/23 16:44 Temperature 97.0 F L Pulse Rate 130 H 138 H 138 H Respiratory Rate 18 19 Blood Pressure 142/67 H Pulse Oximetry 97 96 96 Oxygen Delivery Method Room Air 08/22/23 16:44 08/22/23 16:45 08/22/23 16:50 Temperature Pulse Rate 137 H 138 H Respiratory Rate 19 25 H Blood Pressure 95/61 Pulse Oximetry 96 97 Oxygen Delivery Method Room Air 08/22/23 17:00 08/22/23 17:01 08/22/23 17:01 Temperature Pulse Rate 138 H 140 H Respiratory Rate 22 22 Blood Pressure 82/53 L Pulse Oximetry 97 97 Oxygen Delivery Method Room Air 08/22/23 17:03 08/22/23 17:03 08/22/23 17:05 Temperature Pulse Rate 138 H 140 H Respiratory Rate 22 25 H Blood Pressure 73/51 L Pulse Oximetry 97 96 Oxygen Delivery Method 08/22/23 17:05 08/22/23 17:10 08/22/23 17:10 Temperature Pulse Rate 138 H Respiratory Rate 21 Blood Pressure 94/53 L 104/63 Pulse Oximetry 96 Oxygen Delivery Method 08/22/23 17:15 08/22/23 17:15 08/22/23 17:16 Temperature Pulse Rate 138 H 138 H Respiratory Rate 22 21 Blood Pressure 84/58 L Pulse Oximetry 96 96 Oxygen Delivery Method 08/22/23 17:16 08/22/23 17:20 08/22/23 17:20 Temperature Pulse Rate 138 H Respiratory Rate 20 Blood Pressure 94/64 89/55 L Pulse Oximetry 96 Oxygen Delivery Method MDM - Arrhythmia/Palpitations Lab Data 08/22/23 16:49 08/22/23 16:49 Labs: Lab Results 08/22/23 Range/Units 16:49 WBC 5.6 (4.5-11.0) X10^3/uL RBC 4.76 (4.5-5.9) X10^6/uL Hgb 14.0 (13.5-17.5) g/dL Hct 42.7 (41-53) % MCV 89.9 (80-100) fL MCH 29.4 (26-34) PG MCHC 32.7 (30-36) % RDW 15.6 H (11.6-14.8) % Plt Count 122 L (150-400) X10^3/uL Neut % (Auto) 43.4 L (50-75) % Lymph % (Auto) 48.7 H (25-40) % [place] % (Auto) 6.0 (3-14) % Eos % (Auto) 1.3 L (2-4) % Baso % (Auto) 0.6 (0-2) % Neut # (Auto) 2400 (0755-3483) /uL Lymph # (Auto) 2700 (3184-9728) /uL [place] # (Auto) 300 (0-900) /uL Eos # (Auto) 100 (0-450) /uL Baso # (Auto) 0 (0-100) /uL PT 13.7 H (9.4-12.5) SECONDS INR 1.2 (0.9-1.3) APTT 33 (25.1-36.5) SECONDS Sodium 140 (137-145) mmol/L Potassium 5.0 (3.4-5.1) mmol/L Chloride 107 (98-107) mmol/L Carbon Dioxide 24 (22-32) mmol/L BUN 32 H (9-20) mg/dL Creatinine 1.62 H (0.66-1.25) mg/dL Estimated GFR 42 L (>60) mL/min BUN/Creatinine Ratio 19.8 (6-22) Glucose 131 H (80-110) mg/dL Calcium 9.4 (8.4-10.2) mg/dL Magnesium 1.8 (1.6-2.3) mg/dL Total Bilirubin 0.5 (0.2-1.3) mg/dL AST 25 (17-59) IU/L ALT 18 (<50) IU/L Alkaline Phosphatase 66 (38-126) U/L Total Creatine Kinase 48 L (55-170) U/L Troponin I < 0.012 (0.01-0.034) ng/mL Total Protein 7.4 (6.3-8.2) g/dL Albumin 4.6 (3.5-5.0) g/dL Globulin 2.8 (1.7-4.1) g/dL Albumin/Globulin Ratio 1.6 (1.0-2.8) Lipase 101 (23-300) U/L ECG Data Interpretation: EKG 1: Wide complex tachycardia at a rate of 137 beats per minute. EKG 2: AV dual paced rhythm at 63 beats per minute. No ST T wave changes, no STEMI MDM Narrative Medical decision making narrative: Patient experiencing palpitations, found to be in a fast heart rhythm. He has an AICD in place but does not appear to be paced. Record review shows that patient has history of ventricular tachycardia, plan to reach out to on-call cardiology for further advice. 1653 - Dr. Magaña -per the EKG it appears as though patient is in flutter. Recommended heparin and transfer for cardioversion. She will reach out to [email or web address] device field representatives director for interrogation. 1709 - Spoke with Homero burch of [employer], per the device interrogation patient appears to be in slow ventricular tachycardia. His device threshold is 146 beats per minute and patient is averaging 135-140 beats per minute. Since patient is in a ventricular tachycardic rhythm and not in atrial fibrillation rhythm patient should not need anticoagulation. Rediscussed with Dr. Magaña, who recommended bolus and drip of amiodarone and synchronized cardioversion at 200 joules. Patient has successfully cardioverted after single electric shock. Converted to normal sinus rhythm at 63 beats per minute. Blood pressure improved to [address] Magaña recommends continuation of amiodarone for 24 hours. Patient will be admitted to the ICU for further treatment of his condition. Critical Care Time Critical Care Time Critical Care Time: Yes Total Critical Care Time: 42 Attestation: Slow ventricular tachycardia requiring sedation and cardioversion as well as discussion with Cardiology. Discharge Plan Departure Patient Disposition: Admitted As Inpatient Clinical Impression: V tach Prescriptions: No Action amiodarone 100 mg tablet 50 mg PO Q OTHER DAY metoprolol succinate 50 mg tablet extended release 24 hr 50 mg PO BID levothyroxine 88 mcg tablet 88 mcg PO DAILY tamsulosin 0.4 mg capsule 0.8 mg PO DAILY ketoconazole 2 % cream 1 applic topical DAILY Jardiance 10 mg tablet 10 mg PO DAILY Entresto 49-51 mg tablet 1 tab PO BID aspirin 81 mg Tablet,Chewable 81 mg PO DAILY multivitamin Capsule 1 cap PO DAILY atorvastatin 40 mg Tablet 40 mg PO DAILY ascorbic acid (vitamin C) 1,000 mg Tablet Extended Release 1,000 mg PO Q12H eplerenone 25 mg Tablet 25 mg PO DAILY metformin 500 mg Tablet Extended Release 24 Hr 1,500 mg PO BEDTIME finasteride 5 mg tablet 5 mg PO DAILY furosemide 20 mg tablet 20 mg PO QWEEK meloxicam 7.5 mg tablet 7.5 mg PO DAILY (DME) Respironics [facility] See Rx Instructions .Route .MEDSUPPLY Rx Instructions: CPAP [facility] Min: 6 Max: 12 DME: [place] nitroglycerin 0.4 mg tablet, sublingual 0.4 mg sublingual Q5M PRN (Reason: Chest Pain) Rx Instructions: do not exceed 3 doses per episode Referrals: Carrie Garcia MD [Primary Care Provider] - Admit Date/Time: 08/22/23 18:18 Admit Provider: Ashish Espinoza
[2023-08-22 16:56] LABS: Add Manual Diff / Slide Review NO; Basophils Absolute Auto 0 /uL (0-100); Basophils Percent Auto 0.6 % (0-2); Eosinophils Absolute Auto 100 /uL (0-450); Eosinophils Percent Auto 1.3 % (2-4); Hematocrit 42.7 % (41-53); Lymphocytes Absolute Auto 2700 /uL (1100-4500); Lymphocytes Percent Auto 48.7 % (25-40); Mean Corpuscular HGB Conc 32.7 % (30-36); Mean Corpuscular Hemoglobin 29.4 PG (26-34); Mean Corpuscular Volume 89.9 fL (80-100); Monocytes Absolute Auto 300 /uL (0-900); Neutrophils Absolute Auto 2400 /uL (1500-7000); Neutrophils Percent Auto 43.4 % (50-75); Platelet Count 122 X10^3/uL (150-400); Red Blood Cell Count 4.76 X10^6/uL (4.5-5.9); Red Cell Distribution Width 15.6 % (11.6-14.8); White Blood Cell Count 5.6 X10^3/uL (4.5-11.0)
[2023-08-22] MEDS: HEPARIN DRIP 25,000 UNIT/500 ML IV.SOLN 20.14 UNIT IV (17:06)
[2023-08-22] MEDS: HEPARIN 5,000 UNIT/ML VIAL 5000 UNIT IV (17:06)
[2023-08-22 17:07] LABS: INR 1.2 (0.9-1.3); Prothrombin Time 13.7 SECONDS (9.4-12.5)
[2023-08-22 17:10] LABS: PTT Partial Thromboplastin Tim 33 SECONDS (25.1-36.5)
[2023-08-22 17:11] LABS: Alanine Aminotransferase 18 IU/L (<50); Albumin 4.6 g/dL (3.5-5.0); Albumin Globulin Ratio 1.6 (1.0-2.8); Alkaline Phosphatase 66 U/L (38-126); Aspartate Aminotransferase 25 IU/L (17-59); BUN Creatinine Ratio 19.8 (6-22); Bilirubin Total 0.5 mg/dL (0.2-1.3); Blood Urea Nitrogen 32 mg/dL (9-20); Calcium 9.4 mg/dL (8.4-10.2); Carbon Dioxide 24 mmol/L (22-32); Chloride 107 mmol/L (98-107); Creatine Kinase 48 U/L (55-170); Estimated Glomerular Filt Rate 42 mL/min (>60); Globulin 2.8 g/dL (1.7-4.1); Glucose 131 mg/dL (80-110); HEMOLYSIS < 15 (0-50); Lipase 101 U/L (23-300); Magnesium 1.8 mg/dL (1.6-2.3); Sodium 140 mmol/L (137-145); Total Protein 7.4 g/dL (6.3-8.2)
--- NOTE | 2023-08-22 17:15 | PC.NURSE ---
Pt came to the ED today with because he started to feel weird. Pt states HR was high all morning pt was hypotensive. 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 A&Ox4. Pt skin clammy and states that he is feeling very hot. HR 138, RR 20, Bp 94/64. Pt a&ox4. Answers all questions appropriately. Dr Cox at bedside.
[2023-08-22] MEDS: AMIODARONE 150 MG/100 ML PIGGYBACK 600 MG IV (17:21)
[2023-08-22 17:22] LABS: Troponin I < 0.012 ng/mL (0.01-0.034)
[2023-08-22] MEDS: AMIODARONE 360 MG/200 ML PIGGYBACK 33.33 MG IV (17:34)
[2023-08-22] MEDS: ETOMIDATE 2 MG/ML 10 ML VIAL 10 MG IV (17:49)
--- NOTE | 2023-08-22 18:22 | PC.NURSE ---
Time out called @ 1745 and 10mg of etomidate pushed @1749. 1750 pt shocked w/200 joules. 1751 pt became dyspneic and 15L o2 applied by RT and RT be3gan to bag pt. 1756 pt on RA and sat 94%. 1820 pt a&ox4.
--- NOTE | 2023-08-22 18:30 | PM.HP.1 ---
History of Present Illness History of Present Illness Date Patient Seen: 08/22/23 Time Patient Seen: 18:00 Chief complaint: HR high/ BP up/ anxious T-0 Narrative: Pt is 83 yo male with history of ischemic cardiomyopathy, EF 20-25%, AICD, DM, CKD, SAUL on CPAP, BPH presented with c/o elevated HR and BP and feeeling anxious today. 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 In ED pt noted tachycardic with HR 135 bpm. Initially thought to be in a flutter. However ED physician spoke with [employer] , per device interrogation pt appeared in slow ventricular tachycardia. His device threshold is 146 beats per minute and patient was averaging 135-140 beats per minute. Pt was successfully cardioverted in ED with initial synchronized cardioversion at 200 joules. Currently in A-V paced rhythm. Dr Magaña automation qa lead for cardiology adised to admit pt for 24 hours on amiodarone drip. Pt has been compliant with meds and otherwise feeling well. No chest pain or dyspnea. Troponin normal. K 5.0, Mg 1.8. PFSH Medical History CPAP (continuous positive airway pressure) dependence Obstructive sleep apnea BPH (benign prostatic hyperplasia) Hyperlipidemia Essential hypertension Coronary artery disease Congestive heart failure Thrombocytopenia Surgical History History of automatic internal cardiac defibrillator (AICD) History of heart bypass surgery Family History Father Heart disease Mother Hypertension Social History household members: spouse Smoking Status: Former smoker eating out: rarely or never Type(s) of exercise: walking Meds Home Medications and Allergies Home Medications Medication Instructions Recorded Confirmed Type aspirin 81 mg chewable tablet 81 mg PO DAILY 05/11/18 08/22/23 History multivitamin 1 cap PO DAILY 05/11/18 08/22/23 History ascorbic acid (vitamin C) 1,000 mg 1,000 mg PO Q12H 05/16/19 08/22/23 History tablet,extended release atorvastatin 40 mg tablet 40 mg PO DAILY 05/16/19 08/22/23 History eplerenone 25 mg tablet 25 mg PO DAILY 05/16/19 08/22/23 History metformin 500 mg tablet,extended 1,500 mg PO BEDTIME 12/21/20 08/22/23 History release 24 hr Respironics [facility]Station 03/19/21 08/22/23 History nitroglycerin 0.4 mg sublingual 0.4 mg sublingual Q5M PRN Chest 03/17/22 08/22/23 History tablet Pain finasteride 5 mg tablet 5 mg PO DAILY 05/13/23 08/22/23 History furosemide 20 mg tablet 20 mg PO QWEEK 05/13/23 08/22/23 History meloxicam 7.5 mg tablet 7.5 mg PO DAILY 05/13/23 08/22/23 History amiodarone 100 mg tablet 50 mg PO Q OTHER DAY 08/22/23 08/22/23 History empagliflozin 10 mg tablet 10 mg PO DAILY 08/22/23 08/22/23 History (Jardiance) ketoconazole 2 % topical cream 1 applic topical DAILY feet 08/22/23 08/22/23 History levothyroxine 88 mcg tablet 88 mcg PO DAILY 08/22/23 08/22/23 History metoprolol succinate 50 mg 50 mg PO BID 08/22/23 08/22/23 History tablet,extended release 24 hr sacubitril 49 mg-valsartan 51 mg 1 tab PO BID 08/22/23 08/22/23 History tablet (Entresto) tamsulosin 0.4 mg capsule 0.8 mg PO DAILY 08/22/23 08/22/23 History Allergies Allergy/AdvReac Type Severity Reaction Status Date / Time amoxicillin Allergy Verified 05/13/23 08:20 Exam Vital Signs (past 8 hours): - 08/22/23 16:32 08/22/23 16:41 08/22/23 16:44 Temperature 97.0 F L Pulse Rate 130 H 138 H 138 H Respiratory Rate 18 19 Blood Pressure 142/67 H Pulse Oximetry 97 96 96 Oxygen Delivery Method Room Air 08/22/23 16:44 08/22/23 16:45 08/22/23 16:50 Temperature Pulse Rate 137 H 138 H Respiratory Rate 19 25 H Blood Pressure 95/61 Pulse Oximetry 96 97 Oxygen Delivery Method Room Air 08/22/23 17:00 08/22/23 17:01 08/22/23 17:01 Temperature Pulse Rate 138 H 140 H Respiratory Rate 22 22 Blood Pressure 82/53 L Pulse Oximetry 97 97 Oxygen Delivery Method Room Air 08/22/23 17:03 08/22/23 17:03 08/22/23 17:05 Temperature Pulse Rate 138 H 140 H Respiratory Rate 22 25 H Blood Pressure 73/51 L Pulse Oximetry 97 96 Oxygen Delivery Method 08/22/23 17:05 08/22/23 17:10 08/22/23 17:10 Temperature Pulse Rate 138 H Respiratory Rate 21 Blood Pressure 94/53 L 104/63 Pulse Oximetry 96 Oxygen Delivery Method 08/22/23 17:15 08/22/23 17:15 08/22/23 17:16 Temperature Pulse Rate 138 H 138 H Respiratory Rate 22 21 Blood Pressure 84/58 L Pulse Oximetry 96 96 Oxygen Delivery Method 08/22/23 17:16 08/22/23 17:20 08/22/23 17:20 Temperature Pulse Rate 138 H Respiratory Rate 20 Blood Pressure 94/64 89/55 L Pulse Oximetry 96 Oxygen Delivery Method 08/22/23 17:25 08/22/23 17:25 08/22/23 17:30 Temperature Pulse Rate 136 H 134 H Respiratory Rate 19 20 Blood Pressure 85/62 L Pulse Oximetry 95 94 Oxygen Delivery Method 08/22/23 17:30 08/22/23 17:35 08/22/23 17:39 Temperature Pulse Rate 133 H 132 H Respiratory Rate 22 21 Blood Pressure 85/58 L Pulse Oximetry 94 94 Oxygen Delivery Method 08/22/23 17:39 08/22/23 17:40 08/22/23 17:40 Temperature Pulse Rate 133 H Respiratory Rate 20 Blood Pressure 87/55 L 81/57 L Pulse Oximetry 95 Oxygen Delivery Method 08/22/23 17:45 08/22/23 17:45 08/22/23 17:50 Temperature Pulse Rate 133 H 68 Respiratory Rate 20 21 Blood Pressure 99/71 Pulse Oximetry 95 96 Oxygen Delivery Method 08/22/23 17:51 08/22/23 17:51 08/22/23 17:55 Temperature Pulse Rate 66 Respiratory Rate 27 H Blood Pressure 132/63 111/55 L Pulse Oximetry 100 Oxygen Delivery Method 08/22/23 17:55 08/22/23 18:00 08/22/23 18:00 Temperature Pulse Rate 61 62 Respiratory Rate 23 21 Blood Pressure 102/55 L Pulse Oximetry 100 95 Oxygen Delivery Method 08/22/23 18:05 08/22/23 18:05 08/22/23 18:10 Temperature Pulse Rate 60 60 Respiratory Rate 20 19 Blood Pressure 94/51 L Pulse Oximetry 95 95 Oxygen Delivery Method 08/22/23 18:10 08/22/23 18:15 08/22/23 18:15 Temperature Pulse Rate 62 Respiratory Rate 21 Blood Pressure 94/53 L 107/58 L Pulse Oximetry 96 Oxygen Delivery Method 08/22/23 18:20 08/22/23 18:20 08/22/23 18:25 Temperature Pulse Rate 63 Respiratory Rate 18 Blood Pressure 97/54 L 89/55 L Pulse Oximetry 94 Oxygen Delivery Method 08/22/23 18:25 Temperature Pulse Rate 60 Respiratory Rate 19 Blood Pressure Pulse Oximetry 95 Oxygen Delivery Method Oxygen Delivery Method Room Air Narrative Exam Narrative: Gen: alert, WD/WN male, NAD HEENT: anicteric, PERRL Lungs: clear CV: regular rhythm Abd: soft, nt, no HSM Ext: no edema Neuro: nl affect and speech Objective Labs 08/22/23 16:49 08/22/23 16:49 Labs: Laboratory Results - last 24 hr 08/22/23 16:49 WBC 5.6 RBC 4.76 Hgb 14.0 Hct 42.7 MCV 89.9 MCH 29.4 MCHC 32.7 RDW 15.6 H Plt Count 122 L Neut % (Auto) 43.4 L Lymph % (Auto) 48.7 H [place] % (Auto) 6.0 Eos % (Auto) 1.3 L Baso % (Auto) 0.6 Neut # (Auto) 2400 Lymph # (Auto) 2700 [place] # (Auto) 300 Eos # (Auto) 100 Baso # (Auto) 0 PT 13.7 H INR 1.2 APTT 33 Sodium 140 Potassium 5.0 Chloride 107 Carbon Dioxide 24 BUN 32 H Creatinine 1.62 H Estimated GFR 42 L BUN/Creatinine Ratio 19.8 Glucose 131 H Calcium 9.4 Magnesium 1.8 Total Bilirubin 0.5 AST 25 ALT 18 Alkaline Phosphatase 66 Total Creatine Kinase 48 L Troponin I < 0.012 Total Protein 7.4 Albumin 4.6 Globulin 2.8 Albumin/Globulin Ratio 1.6 Lipase 101 Assessment & Plan Assessment & Plan narrative: 1. Slow ventricular tachycardia, present on admission -pt cardioverted in ED -amiodarone drip loaded 150 mg, 1 mg/min x 6 h, 0.5 mg x 18 h -Mg sulfate 2 gm IV for Mg 1.8 -monitor in ICU 2. Ischemic cardiomyopathy with low EF -appears euvolemic, stable -followed by Dr Spring as outpatient -cont all routine meds 3. DM, controlled -cont metformin 4. CKD -Cr 1.62, stable 5. BPH -cont routine meds DVT prevention: SQ heparin Code status: full Surrogate: spouse
[2023-08-22] MEDS: MAGNESIUM SULFATE 2 GM/50 ML PIGGYBACK IV (19:22)
[2023-08-22 20:17] LABS: MRSA (Nasal) PCR Not Detected (Not Detect)
[2023-08-22] MEDS: METFORMIN XR 500 MG TABLET 1500 MG PO (21:08)
[2023-08-22] MEDS: AMIODARONE 360 MG/200 ML PIGGYBACK 16.7 MG IV (23:39)
[2023-08-23] VITALS (18 sets, daily range): BP systolic 88–121; BP diastolic 52–62; PULSE 59–70; RESP 16–27; TEMP 36.1–36.4; O2SAT 92–98
[2023-08-23 05:39] LABS: BUN Creatinine Ratio 23.3 (6-22); Blood Urea Nitrogen 30 mg/dL (9-20); Calcium 8.9 mg/dL (8.4-10.2); Carbon Dioxide 25 mmol/L (22-32); Chloride 107 mmol/L (98-107); Estimated Glomerular Filt Rate 55 mL/min (>60); Glucose 107 mg/dL (80-110); HEMOLYSIS < 15 (0-50); Magnesium 2.1 mg/dL (1.6-2.3); Potassium 4.3 mmol/L (3.4-5.1); Sodium 137 mmol/L (137-145)
--- NOTE | 2023-08-23 06:44 | PC.NURSE ---
pt has been paced at 60 this shift; he has denied chest pain or shortness of breath; his amiodarone gtt is at 16.7ml/hr
[2023-08-23] MEDS: ASPIRIN 81 MG CHEW TAB PO (08:28)
[2023-08-23] MEDS: HEPARIN 5,000 UNIT/ML VIAL 5000 UNIT SUBCUT (08:28)
[2023-08-23] MEDS: TAMSULOSIN 0.4 MG CAPSULE 0.8 MG PO (08:28)
[2023-08-23] MEDS: METOPROLOL ER 50 MG TABLET PO (08:28)
[2023-08-23] MEDS: ATORVASTATIN 20 MG TABLET 40 MG PO (08:28)
[2023-08-23] MEDS: LEVOTHYROXINE 88 MCG TABLET PO (08:28)
[2023-08-23] MEDS: FINASTERIDE 5 MG TABLET PO (08:28)
[2023-08-23] MEDS: AMIODARONE 200 MG TABLET 50 MG PO (10:02)
--- NOTE | 2023-08-23 10:46 | P.DS_ITS ---
History of Present Illness History of Present Illness Date Patient Seen: 08/23/23 Time Patient Seen: 09:20 Chief complaint: HR high/ BP up/ anxious T-0 Narrative: Per admitting provider, Pt is 83 yo male with history of ischemic cardiomyopathy, EF 20-25%, AICD, DM, CKD, SAUL on CPAP, BPH presented with c/o elevated HR and BP and feeeling anxious today. 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 In ED pt noted tachycardic with HR 135 bpm. Initially thought to be in a flutter. However ED physician spoke with [employer] , per device interrogation pt appeared in slow ventricular tachycardia. His device threshold is 146 beats per minute and patient was averaging 135-140 beats per minute. Pt was successfully cardioverted in ED with initial synchronized cardioversion at 200 joules. Currently in A-V paced rhythm. Dr Magaña administrative operations coordinator for cardiology adised to admit pt for 24 hours on amiodarone drip. Pt has been compliant with meds and otherwise feeling well. No chest pain or dyspnea. Troponin normal. K 5.0, Mg 1.8. Discharge Providers Provider Date of admission: 08/22/23 18:18 Discharge Date: 08/23/23 Primary care physician: Carrie Garcia MD Discharge provider: Rohit Fowler DO Summary Hospital Course Discharge Diagnosis: 1. Slow ventricular tachycardia, present on admission 2. Ischemic cardiomyopathy with low EF 3. DM, controlled 4. CKD 5. BPH Hospital Course: This is an 83 year old male with PMH of ischemic cardiomyopathy with reduced EF, DM, CKD, BPH who was admitted with slow vtach. He was shocked in the emergency room. Cardiology recommended amiodarone infusion. His tachycardia did not recur and the patient remained asymptomatic. After completion of first amiodarone of 360 mg, he was discharged home. To complete loading he was recommended to take an additional 100 mg PO tomorrow, and an additional 50 mg 48 hours after, then resume to previous 50 mg every other day. No other changes to his home medications were recommended on discharge. Time Spent with Patient Time spent: Greater than 30 minutes Exam Vital Signs (past 8 hours): - 08/23/23 03:00 08/23/23 03:00 08/23/23 03:02 Temperature Pulse Rate 60 60 Respiratory Rate 17 16 Blood Pressure 103/58 L Pulse Oximetry 98 95 Oxygen Delivery Method 08/23/23 04:00 08/23/23 04:00 08/23/23 05:00 Temperature 97.6 F Pulse Rate 60 67 Respiratory Rate 22 18 Blood Pressure 97/55 L Pulse Oximetry 95 96 Oxygen Delivery Method 08/23/23 05:00 08/23/23 05:04 08/23/23 06:00 Temperature Pulse Rate 61 60 Respiratory Rate 18 19 Blood Pressure 113/60 Pulse Oximetry 96 96 Oxygen Delivery Method 08/23/23 06:00 08/23/23 06:07 08/23/23 06:07 Temperature Pulse Rate 62 Respiratory Rate 16 Blood Pressure 88/59 L 121/59 L Pulse Oximetry 96 Oxygen Delivery Method 08/23/23 06:28 08/23/23 07:00 08/23/23 08:00 Temperature 97.0 F L 97.2 F L Pulse Rate 70 64 Respiratory Rate 17 16 18 Blood Pressure 107/56 L 112/55 L Pulse Oximetry 98 96 96 Oxygen Delivery Method 08/23/23 08:54 08/23/23 09:00 08/23/23 09:00 Temperature 97.5 F L Pulse Rate 60 60 Respiratory Rate 21 21 Blood Pressure 108/55 L Pulse Oximetry 97 97 Oxygen Delivery Method Room Air 08/23/23 10:00 Temperature 97.4 F L Pulse Rate 66 Respiratory Rate 27 H Blood Pressure 109/62 Pulse Oximetry 97 Oxygen Delivery Method Oxygen Delivery Method Room Air Oxygen Flow Rate 0 Narrative Exam Narrative: Gen: alert, WD/WN male, NAD HEENT: anicteric, PERRL Lungs: clear CV: regular rhythm Abd: soft, nt, no HSM Ext: no edema Neuro: nl affect and speech Objective Labs 08/22/23 16:49 08/23/23 03:55 Labs: Laboratory Results - last 24 hr 08/22/23 08/22/23 08/23/23 16:49 18:51 03:55 WBC 5.6 RBC 4.76 Hgb 14.0 Hct 42.7 MCV 89.9 MCH 29.4 MCHC 32.7 RDW 15.6 H Plt Count 122 L Neut % (Auto) 43.4 L Lymph % (Auto) 48.7 H [place] % (Auto) 6.0 Eos % (Auto) 1.3 L Baso % (Auto) 0.6 Neut # (Auto) 2400 Lymph # (Auto) 2700 [place] # (Auto) 300 Eos # (Auto) 100 Baso # (Auto) 0 PT 13.7 H INR 1.2 APTT 33 Sodium 140 137 Potassium 5.0 4.3 Chloride 107 107 Carbon Dioxide 24 25 BUN 32 H 30 H Creatinine 1.62 H 1.29 H Estimated GFR 42 L 55 L BUN/Creatinine Ratio 19.8 23.3 H Glucose 131 H 107 Calcium 9.4 8.9 Magnesium 1.8 2.1 Total Bilirubin 0.5 AST 25 ALT 18 Alkaline Phosphatase 66 Total Creatine Kinase 48 L Troponin I < 0.012 Total Protein 7.4 Albumin 4.6 Globulin 2.8 Albumin/Globulin Ratio 1.6 Lipase 101 Nasal Screen MRSA (PCR) Not detected [facility] Medical History CPAP (continuous positive airway pressure) dependence Obstructive sleep apnea BPH (benign prostatic hyperplasia) Hyperlipidemia Essential hypertension Coronary artery disease Congestive heart failure Thrombocytopenia Surgical History History of automatic internal cardiac defibrillator (AICD) History of heart bypass surgery Family History Father Heart disease Mother Hypertension Social History household members: spouse Smoking Status: Former smoker alcohol intake: current eating out: rarely or never Type(s) of exercise: walking Discharge Plan Discharge Plan Patient Disposition: Home Provider Discharge Comment: You were admitted to the hospital with a fast heart rate, improved with amiodarone. Please take 2 additional amiodarone pills tomorrow (in addition to your usual 50 mg) and 1 additional pill on the next dose. Then resume your previous dosing. Discharge orders & Medications Prescriptions: Continued amiodarone 100 mg tablet 50 mg PO Q OTHER DAY metoprolol succinate 50 mg tablet extended release 24 hr 50 mg PO BID levothyroxine 88 mcg tablet 88 mcg PO DAILY tamsulosin 0.4 mg capsule 0.8 mg PO DAILY ketoconazole 2 % cream 1 applic topical DAILY Jardiance 10 mg tablet 10 mg PO DAILY Entresto 49-51 mg tablet 1 tab PO BID aspirin 81 mg Tablet,Chewable 81 mg PO DAILY multivitamin Capsule 1 cap PO DAILY atorvastatin 40 mg Tablet 40 mg PO DAILY ascorbic acid (vitamin C) 1,000 mg Tablet Extended Release 1,000 mg PO Q12H eplerenone 25 mg Tablet 25 mg PO DAILY metformin 500 mg Tablet Extended Release 24 Hr 1,500 mg PO BEDTIME finasteride 5 mg tablet 5 mg PO DAILY furosemide 20 mg tablet 20 mg PO QWEEK meloxicam 7.5 mg tablet 7.5 mg PO DAILY (DME) Respironics DreamStation See Rx Instructions .Route .MEDSUPPLY Rx Instructions: CPAP [facility] Min: 6 Max: 12 DME: [place] nitroglycerin 0.4 mg tablet, sublingual 0.4 mg sublingual Q5M PRN (Reason: Chest Pain) Rx Instructions: do not exceed 3 doses per episode Follow up/Referrals: Carrie Garcia MD [Primary Care Provider] - Diet/Activity/Treatments Diet: Diet as Tolerated and Regular Activity: As tolerated, no restrictions Visit Report/Discharge Packet Instructions: DI for Ventricular Tachycardia, Amiodarone Stand Alone Forms: Patient Portal/API, Stroke Signs & Symptoms Discharge Data Primary Care Provider: Carrie Garcia
--- NOTE | 2023-08-23 12:16 | CM.DANOTE ---
Patient is an 83 yo male who was admitted INPT on 08/22/23 for HR issues. Pt has [facility] and [employer] for insurance and his PCP is Dr. Carrie Garcia and his Silk Soaker is Dr. Spring at [facility]. EMR was reviewed. Per MD, pt with hx of EF 20-25% and admitted for VTACH and recommendation of IV amiodarone. Per MD, pt seems to have converted and able to transition to PO meds and medically stable to d/c home today with outpt f/u and no identified barriers to discharge. Per RN, pt independent in room and no concerns noted. SW met briefly bedside with pt and explained role and he confirms he lives in [place] with his and both are active and independent at baseline. Pt drives and does not use DME for ambulation and denies any recent hx of HH or SNF. Pt states he has been doing increased yard work and is compliant with meds and recommendations. Pt's preference is to d/c home today, states spouse can transport, and denies any discharge needs and plans to f/u with his Silk Soaker. Plan: Patient to d/c home this morning via spouse POV and no further SW needs at this time. AYAH Bales Discharge Planning/Care Management CM Discharge Assessment Start: 08/23/23 12:14 Freq: Status: Active Protocol: Document 08/23/23 12:14 BF (Rec: 08/23/23 12:15 BF [id number]) Discharge Planning Assessment Assigned Fund Development Manager AYAH Briggs DPOA/Assigned Designee Name spouse Patricia Contact Information [phone] Advance Directives? Yes Advance Directives on File Yes History Provided By Patient,Medical Record Has Patient been admitted in last 30 No days? Prior Living Arrangements House Household Members spouse Type of transporation used prior to Drives own vehicle admit Independent with ADL's Yes Is patient alert and oriented? Yes Caregiver for Another No Barriers to Discharge No Discharge Plan Home Transportation Arrangement Family Referrals Initiated None needed Whiteboard Updated in Patient Room with Yes name and ext. # of Fund Development Manager Review Status In Process Please Provide Date Initial DC 08/23/23 Assessment Was Performed Next Review Type Continued Stay Review
== END 2023-08-23 12:05 | disposition home or self-care (01) | DRG 309 ==
LOC: ED 17:49 → AC 18:19 → ICU 18:32
PROVIDERS: Admitting Provider Internal Medicine; Emergency Provider Emergency Medicine; PCP Internal Medicine; Referring Provider Emergency Medicine; Visit Provider Internal Medicine
DX: I47.20 Ventricular tachycardia, unspecified (principal); I13.0 Hypertensive heart and chronic kidney disease with heart failure and stage 1 through stage 4 chronic kidney disease, or unspecified chronic kidney disease; I50.22 Chronic systolic (congestive) heart failure; I25.5 Ischemic cardiomyopathy; E11.22 Type 2 diabetes mellitus with diabetic chronic kidney disease; N18.9 Chronic kidney disease, unspecified; N40.0 Benign prostatic hyperplasia without lower urinary tract symptoms; E78.5 Hyperlipidemia, unspecified; Z87.891 Personal history of nicotine dependence; Z95.810 Presence of automatic (implantable) cardiac defibrillator; Z79.84 Long term (current) use of oral hypoglycemic drugs
CPT/HCPCS: 36415; 71045; 80048; 80053; 82550; 83690; 83735; 84484; 85025; 85610; 85730; 87797; 92960; 93005; 96365; 96368; 96376; 99152; 99285; 99291; J0282; J1644; J3475

== ENCOUNTER 2023-08-25 06:15 | Emergency (ER) | payer MEDICARE, SELFPAY ==
[2023-08-22 18:54] VITALS: BMI 26.9
[2023-08-25] VITALS (123 sets, daily range): BP systolic 66–123; BP diastolic 46–69; PULSE 60–132; RESP 12–32; TEMP 35.9; O2SAT 92–99; BMI 27.3
--- NOTE | 2023-08-25 06:19 | DI.RAD.S_ITS ---
PROCEDURE: XR CHEST 1V INDICATIONS: Palpitations TECHNIQUE: One view of the chest was acquired. COMPARISON: [facility], CR, XR CHEST 1V, 08/22/2023, 16:48. FINDINGS: Surgical changes and devices: Sternal wires and pacemaker are present. Lungs and pleura: Lungs are clear. No pleural effusions or pneumothorax. Mediastinum: Mediastinal contours appear normal. Heart size is normal enlarged. Bones and chest wall: No suspicious bony lesions. Overlying soft tissues appear unremarkable. IMPRESSION: No acute pulmonary process. The above findings are concordant with preliminary report. Dictated by: Modesta Tejada M.D. on 08/25/2023 at 11:32 Approved by: Modesta Tejada M.D. on 08/25/2023 at 11:32
--- NOTE | 2023-08-25 06:35 | ED.ARRPALP ---
HPI - Arrhythmia/Palpitations <Kiel Espitia DO - Last Filed: 08/25/23 17:55> General Chief Complaint: Arrhythmia/Palpitations Stated Complaint: fast heart rate low bl pressure Time Seen by Provider: 08/25/23 06:16 Source: patient Mode of arrival: Ambulatory Limitations: no limitations History of Present Illness HPI narrative: Patient is an 83-year-old male. Was seen here in the emergency department a couple days ago for palpitations and low blood pressure. Patient was diagnosed with ventricular tachycardia. He does have a pacemaker/AICD in place however the heart rate was below the threshold for the device to fire. He was cardioverted here in the emergency department. Was admitted to the hospital for amiodarone infusion. Was discharged 2 days later. He states that yesterday he felt like there were episodes where his heart rate was fast but then seemed to resolve. Last evening he stated that he did not get much sleep because he was very anxious. He states that he feels like maybe his heart rate is abnormal once again but can not specifically feel the palpitations. No chest pain. No shortness of breath. No lightheadedness. He states when he took a shower this morning he tried to clean the shower and became short of breath at that point but that is now resolved. He has been taking all his medications as directed. He did take 100 mg of amiodarone this morning. Related Data Home Medications Medication Instructions Recorded Confirmed aspirin 81 mg chewable tablet 81 mg PO DAILY 05/11/18 08/22/23 multivitamin 1 cap PO DAILY 05/11/18 08/22/23 ascorbic acid (vitamin C) 1,000 mg 1,000 mg PO Q12H 05/16/19 08/22/23 tablet,extended release atorvastatin 40 mg tablet 40 mg PO DAILY 05/16/19 08/22/23 eplerenone 25 mg tablet 25 mg PO DAILY 05/16/19 08/22/23 metformin 500 mg tablet,extended 1,500 mg PO BEDTIME 12/21/20 08/22/23 release 24 hr Respironics [employer] 03/19/21 08/22/23 nitroglycerin 0.4 mg sublingual 0.4 mg sublingual Q5M PRN Chest 03/17/22 08/22/23 tablet Pain finasteride 5 mg tablet 5 mg PO DAILY 05/13/23 08/22/23 furosemide 20 mg tablet 20 mg PO QWEEK 05/13/23 08/22/23 meloxicam 7.5 mg tablet 7.5 mg PO DAILY 05/13/23 08/22/23 amiodarone 100 mg tablet 50 mg PO Q OTHER DAY 08/22/23 08/22/23 empagliflozin 10 mg tablet 10 mg PO DAILY 08/22/23 08/22/23 (Jardiance) ketoconazole 2 % topical cream 1 applic topical DAILY feet 08/22/23 08/22/23 levothyroxine 88 mcg tablet 88 mcg PO DAILY 08/22/23 08/22/23 metoprolol succinate 50 mg 50 mg PO BID 08/22/23 08/22/23 tablet,extended release 24 hr sacubitril 49 mg-valsartan 51 mg 1 tab PO BID 08/22/23 08/22/23 tablet (Entresto) tamsulosin 0.4 mg capsule 0.8 mg PO DAILY 08/22/23 08/22/23 Allergies Allergy/AdvReac Type Severity Reaction Status Date / Time amoxicillin AdvReac Severe Chills Verified 08/23/23 10:55 Review of Systems <Kiel Espitia DO - Last Filed: 08/25/23 17:55> Review of Systems ROS Unobtainable: All systems reviewed & are unremarkable except as noted in HPI and below Patient History <Kiel Espitia DO - Last Filed: 08/25/23 17:55> Medical History CPAP (continuous positive airway pressure) dependence Obstructive sleep apnea BPH (benign prostatic hyperplasia) Hyperlipidemia Essential hypertension Coronary artery disease Congestive heart failure Thrombocytopenia Surgical History History of automatic internal cardiac defibrillator (AICD) History of heart bypass surgery Family History Father Heart disease Mother Hypertension Social History household members: spouse Smoking Status: Former smoker alcohol intake: current eating out: rarely or never Type(s) of exercise: walking Smoking Status: Former smoker alcohol intake frequency: holidays/special occasions only Substance Use Type: does not use Exam <Kiel Espitia DO - Last Filed: 08/25/23 17:55> Initial Vital Signs Initial Vital Signs: Vital Signs Pulse Rate 130 H 08/25/23 06:32 Respiratory Rate 25 H 08/25/23 06:32 Pulse Oximetry 97 08/25/23 06:32 Const General: cooperative, comfortable and No ill appearing HENMT Head: normal to inspection and normocephalic Resp Effort & Inspection: normal respiratory effort Auscultation: clear to auscultation bilaterally Cardio Rate: tachycardic Rhythm: regular rhythm GI Inspection: normal to inspection Skin General: no rashes or lesions noted Neuro General: patient alert, patient awake and moves all extremities Extrem General: capillary refill normal <Corina Mclean MD - Last Filed: 08/26/23 07:53> Initial Vital Signs Initial Vital Signs: Vital Signs Pulse Rate 130 H 08/25/23 06:32 Respiratory Rate 25 H 08/25/23 06:32 Pulse Oximetry 97 08/25/23 06:32 Scores <Kiel Espitia DO - Last Filed: 08/25/23 17:55> GCS [place] coma scale eye opening: Spontaneous [place] coma scale verbal response: Orientated [place] coma scale motor response: Obey commands [place] coma scale total score: 15 <Corina Mclean MD - Last Filed: 08/26/23 07:53> GCS [place] coma scale total score: 15 Course <Kiel Espitia DO - Last Filed: 08/25/23 17:55> Orders Ordered: Discontinued Medications Heparin Sodium (Porcine) (Heparin 5,000 Unit/Ml Vial) 5,000 unit 60 unit/kg (5000 unit) IV NOW ONE Stop: 08/25/23 14:20 Last Admin: 08/25/23 14:43 Dose: 5,000 unit Documented By: LESA Amiodarone HCl/Dextrose (Nexterone) 150 mg in 100 mls @ 600 mls/hr IV NOW ONE; Protocol Stop: 08/25/23 06:36 Last Infusion: 08/25/23 07:06 Dose: Infused Documented By: Admin: 08/25/23 06:43 Dose: 600 mls/hr Documented By: SHELBY Sodium Chloride (Normal Saline 0.9%) 1,000 mls @ 500 mls/hr IV BOLUS ONE Stop: 08/25/23 09:00 Last Infusion: 08/25/23 09:15 Dose: Infused Documented By: FLCameron Admin: 08/25/23 07:06 Dose: 500 mls/hr Documented By: SHELBY Heparin Sodium/Dextrose (Heparin Drip) 25,000 unit in 500 mls @ 20.14 mls/hr IV CONT BRUNO; Protocol Last Titration: 08/25/23 18:23 Dose: 11.92 units/kg/hr, 20.005 mls/hr Documented By: EMILY Co-signed By: MELISSA Admin: 08/25/23 14:47 Dose: 11.92 units/kg/hr, 20 mls/hr Documented By: LESA Co-signed By: LESA(2) Vital Signs Vital signs: Vital Signs - 8 hr 08/25/23 10:00 08/25/23 10:00 08/25/23 10:05 Pulse Rate 128 H Respiratory Rate 13 Blood Pressure 79/55 L 82/57 L Pulse Oximetry 97 08/25/23 10:05 08/25/23 10:10 08/25/23 10:10 Pulse Rate 128 H 128 H Respiratory Rate 26 H 23 Blood Pressure 77/51 L Pulse Oximetry 95 95 08/25/23 10:14 08/25/23 10:15 08/25/23 11:30 Pulse Rate 128 H Respiratory Rate 18 Blood Pressure 72/46 L 94/69 Pulse Oximetry 95 08/25/23 11:30 08/25/23 11:35 08/25/23 11:35 Pulse Rate 124 H 62 Respiratory Rate 21 22 Blood Pressure 99/60 Pulse Oximetry 96 95 08/25/23 11:40 08/25/23 11:40 08/25/23 11:45 Pulse Rate 64 71 Respiratory Rate 20 21 Blood Pressure 97/55 L Pulse Oximetry 95 95 08/25/23 11:45 08/25/23 11:50 08/25/23 11:50 Pulse Rate 62 Respiratory Rate 22 Blood Pressure 97/59 L 90/50 L Pulse Oximetry 95 08/25/23 11:55 08/25/23 11:55 08/25/23 12:00 Pulse Rate 62 Respiratory Rate 21 Blood Pressure 91/53 L 90/54 L Pulse Oximetry 96 08/25/23 12:00 08/25/23 12:05 08/25/23 12:05 Pulse Rate 62 60 Respiratory Rate 23 25 H Blood Pressure 97/62 Pulse Oximetry 96 96 08/25/23 12:10 08/25/23 12:10 08/25/23 12:15 Pulse Rate 60 Respiratory Rate 23 Blood Pressure 87/53 L 96/54 L Pulse Oximetry 96 08/25/23 12:15 08/25/23 12:20 08/25/23 12:20 Pulse Rate 61 60 Respiratory Rate 21 22 Blood Pressure 88/50 L Pulse Oximetry 96 95 08/25/23 12:25 08/25/23 12:25 08/25/23 12:30 Pulse Rate 60 Respiratory Rate 23 Blood Pressure 90/54 L 91/54 L Pulse Oximetry 95 08/25/23 12:30 08/25/23 12:35 08/25/23 12:35 Pulse Rate 60 60 Respiratory Rate 20 20 Blood Pressure 90/60 Pulse Oximetry 95 95 08/25/23 12:40 08/25/23 12:40 08/25/23 12:45 Pulse Rate 60 60 Respiratory Rate 22 18 Blood Pressure 88/55 L Pulse Oximetry 95 94 08/25/23 12:45 08/25/23 12:50 08/25/23 12:50 Pulse Rate 60 Respiratory Rate 21 Blood Pressure 98/59 L 91/53 L Pulse Oximetry 96 08/25/23 12:55 08/25/23 12:55 08/25/23 13:00 Pulse Rate 61 71 Respiratory Rate 21 26 H Blood Pressure 94/59 L Pulse Oximetry 94 96 08/25/23 13:00 08/25/23 13:05 08/25/23 13:05 Pulse Rate 74 Respiratory Rate 20 Blood Pressure 89/55 L 98/57 L Pulse Oximetry 97 08/25/23 13:10 08/25/23 13:10 08/25/23 13:15 Pulse Rate 61 Respiratory Rate 20 Blood Pressure 98/53 L 96/55 L Pulse Oximetry 94 08/25/23 13:15 08/25/23 13:20 08/25/23 13:20 Pulse Rate 60 60 Respiratory Rate 20 18 Blood Pressure 98/56 L Pulse Oximetry 95 95 08/25/23 13:25 08/25/23 13:25 08/25/23 13:29 Pulse Rate 60 60 Respiratory Rate 17 16 Blood Pressure 101/59 L Pulse Oximetry 95 98 08/25/23 13:30 08/25/23 13:30 08/25/23 13:35 Pulse Rate 60 Respiratory Rate 22 Blood Pressure 97/53 L 95/51 L Pulse Oximetry 95 08/25/23 13:35 08/25/23 13:40 08/25/23 13:40 Pulse Rate 62 60 Respiratory Rate 19 19 Blood Pressure 101/55 L Pulse Oximetry 95 95 08/25/23 13:45 08/25/23 13:45 08/25/23 13:50 Pulse Rate 61 Respiratory Rate 20 Blood Pressure 101/56 L 105/65 Pulse Oximetry 96 08/25/23 13:50 08/25/23 13:55 08/25/23 13:55 Pulse Rate 74 61 Respiratory Rate 21 20 Blood Pressure 107/59 L Pulse Oximetry 95 95 08/25/23 14:00 08/25/23 14:00 08/25/23 14:05 Pulse Rate 60 Respiratory Rate 18 Blood Pressure 103/57 L 106/61 Pulse Oximetry 94 08/25/23 14:05 08/25/23 14:10 08/25/23 14:10 Pulse Rate 60 62 Respiratory Rate 18 21 Blood Pressure 107/63 Pulse Oximetry 95 96 08/25/23 14:15 08/25/23 14:15 08/25/23 14:20 Pulse Rate 60 72 Respiratory Rate 17 20 Blood Pressure 103/59 L Pulse Oximetry 95 95 08/25/23 14:20 08/25/23 14:25 08/25/23 14:25 Pulse Rate 61 Respiratory Rate 18 Blood Pressure 115/66 93/51 L Pulse Oximetry 95 08/25/23 14:30 08/25/23 14:30 08/25/23 14:35 Pulse Rate 60 Respiratory Rate 19 Blood Pressure 97/54 L 96/53 L Pulse Oximetry 95 08/25/23 14:35 08/25/23 14:40 08/25/23 14:40 Pulse Rate 60 62 Respiratory Rate 20 22 Blood Pressure 95/57 L Pulse Oximetry 95 95 08/25/23 14:45 08/25/23 14:45 08/25/23 14:50 Pulse Rate 60 Respiratory Rate 21 Blood Pressure 105/60 102/58 L Pulse Oximetry 95 08/25/23 14:50 08/25/23 14:55 08/25/23 14:55 Pulse Rate 60 60 Respiratory Rate 22 20 Blood Pressure 103/55 L Pulse Oximetry 96 95 08/25/23 15:00 08/25/23 15:00 08/25/23 15:05 Pulse Rate 60 Respiratory Rate 21 Blood Pressure 107/61 111/59 L Pulse Oximetry 96 08/25/23 15:05 08/25/23 15:11 08/25/23 15:11 Pulse Rate 61 66 Respiratory Rate 20 23 Blood Pressure 103/59 L Pulse Oximetry 95 96 08/25/23 15:15 08/25/23 15:15 08/25/23 15:20 Pulse Rate 63 Respiratory Rate 21 Blood Pressure 104/62 102/59 L Pulse Oximetry 95 08/25/23 15:20 08/25/23 15:25 08/25/23 15:25 Pulse Rate 61 60 Respiratory Rate 21 19 Blood Pressure 107/58 L Pulse Oximetry 96 96 08/25/23 15:30 08/25/23 15:30 08/25/23 15:35 Pulse Rate 64 Respiratory Rate 19 Blood Pressure 102/63 101/57 L Pulse Oximetry 96 08/25/23 15:35 08/25/23 15:51 08/25/23 15:51 Pulse Rate 62 85 Respiratory Rate 18 20 Blood Pressure 123/61 Pulse Oximetry 95 97 08/25/23 15:55 08/25/23 15:55 08/25/23 16:00 Pulse Rate 74 Respiratory Rate 25 H Blood Pressure 119/66 113/60 Pulse Oximetry 97 08/25/23 16:00 08/25/23 16:05 08/25/23 16:05 Pulse Rate 61 65 Respiratory Rate 22 19 Blood Pressure 111/57 L Pulse Oximetry 97 96 08/25/23 16:10 08/25/23 16:10 08/25/23 16:15 Pulse Rate 60 Respiratory Rate 18 Blood Pressure 106/58 L 113/56 L Pulse Oximetry 96 08/25/23 16:15 08/25/23 16:20 08/25/23 16:20 Pulse Rate 69 61 Respiratory Rate 20 21 Blood Pressure 114/60 Pulse Oximetry 96 96 08/25/23 16:25 08/25/23 16:25 08/25/23 16:30 Pulse Rate 61 Respiratory Rate 20 Blood Pressure 103/57 L 111/59 L Pulse Oximetry 97 08/25/23 16:30 Pulse Rate 62 Respiratory Rate 21 Blood Pressure Pulse Oximetry 96 <Corina Mclean MD - Last Filed: 08/26/23 07:53> Orders Ordered: Discontinued Medications Heparin Sodium (Porcine) (Heparin 5,000 Unit/Ml Vial) 5,000 unit 60 unit/kg (5000 unit) IV NOW ONE Stop: 08/25/23 14:20 Last Admin: 08/25/23 14:43 Dose: 5,000 unit Documented By: LESA Amiodarone HCl/Dextrose (Nexterone) 150 mg in 100 mls @ 600 mls/hr IV NOW ONE; Protocol Stop: 08/25/23 06:36 Last Infusion: 08/25/23 07:06 Dose: Infused Documented By: Admin: 08/25/23 06:43 Dose: 600 mls/hr Documented By: SHELBY Sodium Chloride (Normal Saline 0.9%) 1,000 mls @ 500 mls/hr IV BOLUS ONE Stop: 08/25/23 09:00 Last Infusion: 08/25/23 09:15 Dose: Infused Documented By: Admin: 08/25/23 07:06 Dose: 500 mls/hr Documented By: SHELBY Heparin Sodium/Dextrose (Heparin Drip) 25,000 unit in 500 mls @ 20.14 mls/hr IV CONT BRUNO; Protocol Last Titration: 08/25/23 18:23 Dose: 11.92 units/kg/hr, 20.005 mls/hr Documented By: EMILY Co-signed By: MELISSA Admin: 08/25/23 14:47 Dose: 11.92 units/kg/hr, 20 mls/hr Documented By: LESA Co-signed By: LESA(2) Vital Signs Vital signs: Vital Signs - 8 hr 08/25/23 10:00 08/25/23 10:00 08/25/23 10:05 Pulse Rate 128 H Respiratory Rate 13 Blood Pressure 79/55 L 82/57 L Pulse Oximetry 97 08/25/23 10:05 08/25/23 10:10 08/25/23 10:10 Pulse Rate 128 H 128 H Respiratory Rate 26 H 23 Blood Pressure 77/51 L Pulse Oximetry 95 95 08/25/23 10:14 08/25/23 10:15 08/25/23 11:30 Pulse Rate 128 H Respiratory Rate 18 Blood Pressure 72/46 L 94/69 Pulse Oximetry 95 08/25/23 11:30 08/25/23 11:35 08/25/23 11:35 Pulse Rate 124 H 62 Respiratory Rate 21 22 Blood Pressure 99/60 Pulse Oximetry 96 95 08/25/23 11:40 08/25/23 11:40 08/25/23 11:45 Pulse Rate 64 71 Respiratory Rate 20 21 Blood Pressure 97/55 L Pulse Oximetry 95 95 08/25/23 11:45 08/25/23 11:50 08/25/23 11:50 Pulse Rate 62 Respiratory Rate 22 Blood Pressure 97/59 L 90/50 L Pulse Oximetry 95 08/25/23 11:55 08/25/23 11:55 08/25/23 12:00 Pulse Rate 62 Respiratory Rate 21 Blood Pressure 91/53 L 90/54 L Pulse Oximetry 96 08/25/23 12:00 08/25/23 12:05 08/25/23 12:05 Pulse Rate 62 60 Respiratory Rate 23 25 H Blood Pressure 97/62 Pulse Oximetry 96 96 08/25/23 12:10 08/25/23 12:10 08/25/23 12:15 Pulse Rate 60 Respiratory Rate 23 Blood Pressure 87/53 L 96/54 L Pulse Oximetry 96 08/25/23 12:15 08/25/23 12:20 08/25/23 12:20 Pulse Rate 61 60 Respiratory Rate 21 22 Blood Pressure 88/50 L Pulse Oximetry 96 95 08/25/23 12:25 08/25/23 12:25 08/25/23 12:30 Pulse Rate 60 Respiratory Rate 23 Blood Pressure 90/54 L 91/54 L Pulse Oximetry 95 08/25/23 12:30 08/25/23 12:35 08/25/23 12:35 Pulse Rate 60 60 Respiratory Rate 20 20 Blood Pressure 90/60 Pulse Oximetry 95 95 08/25/23 12:40 08/25/23 12:40 08/25/23 12:45 Pulse Rate 60 60 Respiratory Rate 22 18 Blood Pressure 88/55 L Pulse Oximetry 95 94 08/25/23 12:45 08/25/23 12:50 08/25/23 12:50 Pulse Rate 60 Respiratory Rate 21 Blood Pressure 98/59 L 91/53 L Pulse Oximetry 96 08/25/23 12:55 08/25/23 12:55 08/25/23 13:00 Pulse Rate 61 71 Respiratory Rate 21 26 H Blood Pressure 94/59 L Pulse Oximetry 94 96 08/25/23 13:00 08/25/23 13:05 08/25/23 13:05 Pulse Rate 74 Respiratory Rate 20 Blood Pressure 89/55 L 98/57 L Pulse Oximetry 97 08/25/23 13:10 08/25/23 13:10 08/25/23 13:15 Pulse Rate 61 Respiratory Rate 20 Blood Pressure 98/53 L 96/55 L Pulse Oximetry 94 08/25/23 13:15 08/25/23 13:20 08/25/23 13:20 Pulse Rate 60 60 Respiratory Rate 20 18 Blood Pressure 98/56 L Pulse Oximetry 95 95 08/25/23 13:25 08/25/23 13:25 08/25/23 13:29 Pulse Rate 60 60 Respiratory Rate 17 16 Blood Pressure 101/59 L Pulse Oximetry 95 98 08/25/23 13:30 08/25/23 13:30 08/25/23 13:35 Pulse Rate 60 Respiratory Rate 22 Blood Pressure 97/53 L 95/51 L Pulse Oximetry 95 08/25/23 13:35 08/25/23 13:40 08/25/23 13:40 Pulse Rate 62 60 Respiratory Rate 19 19 Blood Pressure 101/55 L Pulse Oximetry 95 95 08/25/23 13:45 08/25/23 13:45 08/25/23 13:50 Pulse Rate 61 Respiratory Rate 20 Blood Pressure 101/56 L 105/65 Pulse Oximetry 96 08/25/23 13:50 08/25/23 13:55 08/25/23 13:55 Pulse Rate 74 61 Respiratory Rate 21 20 Blood Pressure 107/59 L Pulse Oximetry 95 95 08/25/23 14:00 08/25/23 14:00 08/25/23 14:05 Pulse Rate 60 Respiratory Rate 18 Blood Pressure 103/57 L 106/61 Pulse Oximetry 94 08/25/23 14:05 08/25/23 14:10 08/25/23 14:10 Pulse Rate 60 62 Respiratory Rate 18 21 Blood Pressure 107/63 Pulse Oximetry 95 96 08/25/23 14:15 08/25/23 14:15 08/25/23 14:20 Pulse Rate 60 72 Respiratory Rate 17 20 Blood Pressure 103/59 L Pulse Oximetry 95 95 08/25/23 14:20 08/25/23 14:25 08/25/23 14:25 Pulse Rate 61 Respiratory Rate 18 Blood Pressure 115/66 93/51 L Pulse Oximetry 95 08/25/23 14:30 08/25/23 14:30 08/25/23 14:35 Pulse Rate 60 Respiratory Rate 19 Blood Pressure 97/54 L 96/53 L Pulse Oximetry 95 08/25/23 14:35 08/25/23 14:40 08/25/23 14:40 Pulse Rate 60 62 Respiratory Rate 20 22 Blood Pressure 95/57 L Pulse Oximetry 95 95 08/25/23 14:45 08/25/23 14:45 08/25/23 14:50 Pulse Rate 60 Respiratory Rate 21 Blood Pressure 105/60 102/58 L Pulse Oximetry 95 08/25/23 14:50 08/25/23 14:55 08/25/23 14:55 Pulse Rate 60 60 Respiratory Rate 22 20 Blood Pressure 103/55 L Pulse Oximetry 96 95 08/25/23 15:00 08/25/23 15:00 08/25/23 15:05 Pulse Rate 60 Respiratory Rate 21 Blood Pressure 107/61 111/59 L Pulse Oximetry 96 08/25/23 15:05 08/25/23 15:11 08/25/23 15:11 Pulse Rate 61 66 Respiratory Rate 20 23 Blood Pressure 103/59 L Pulse Oximetry 95 96 08/25/23 15:15 08/25/23 15:15 08/25/23 15:20 Pulse Rate 63 Respiratory Rate 21 Blood Pressure 104/62 102/59 L Pulse Oximetry 95 08/25/23 15:20 08/25/23 15:25 08/25/23 15:25 Pulse Rate 61 60 Respiratory Rate 21 19 Blood Pressure 107/58 L Pulse Oximetry 96 96 08/25/23 15:30 08/25/23 15:30 08/25/23 15:35 Pulse Rate 64 Respiratory Rate 19 Blood Pressure 102/63 101/57 L Pulse Oximetry 96 08/25/23 15:35 08/25/23 15:51 08/25/23 15:51 Pulse Rate 62 85 Respiratory Rate 18 20 Blood Pressure 123/61 Pulse Oximetry 95 97 08/25/23 15:55 08/25/23 15:55 08/25/23 16:00 Pulse Rate 74 Respiratory Rate 25 H Blood Pressure 119/66 113/60 Pulse Oximetry 97 08/25/23 16:00 08/25/23 16:05 08/25/23 16:05 Pulse Rate 61 65 Respiratory Rate 22 19 Blood Pressure 111/57 L Pulse Oximetry 97 96 08/25/23 16:10 08/25/23 16:10 08/25/23 16:15 Pulse Rate 60 Respiratory Rate 18 Blood Pressure 106/58 L 113/56 L Pulse Oximetry 96 08/25/23 16:15 08/25/23 16:20 08/25/23 16:20 Pulse Rate 69 61 Respiratory Rate 20 21 Blood Pressure 114/60 Pulse Oximetry 96 96 08/25/23 16:25 08/25/23 16:25 08/25/23 16:30 Pulse Rate 61 Respiratory Rate 20 Blood Pressure 103/57 L 111/59 L Pulse Oximetry 97 08/25/23 16:30 Pulse Rate 62 Respiratory Rate 21 Blood Pressure Pulse Oximetry 96 MDM - Arrhythmia/Palpitations <Kiel Espitia DO - Last Filed: 08/25/23 17:55> Medical Records Attestation: I reviewed the patient's medical records. Lab Data 08/25/23 06:35 08/25/23 06:35 Labs: Lab Results 08/25/23 08/25/23 08/25/23 Range/Units 06:35 10:21 12:56 WBC 4.5 (4.5-11.0) X10^3/uL RBC 4.54 (4.5-5.9) X10^6/uL Hgb 13.7 (13.5-17.5) g/dL Hct 41.3 (41-53) % MCV 91.1 (80-100) fL MCH 30.3 (26-34) PG MCHC 33.2 (30-36) % RDW 15.7 H (11.6-14.8) % Plt Count 118 L (150-400) X10^3/uL Neut % (Auto) 48.3 L (50-75) % Lymph % (Auto) 44.9 H (25-40) % [place] % (Auto) 5.1 (3-14) % Eos % (Auto) 1.5 L (2-4) % Baso % (Auto) 0.2 (0-2) % Neut # (Auto) 2200 (0706-2635) /uL Lymph # (Auto) 2000 (2304-2263) /uL [place] # (Auto) 200 (0-900) /uL Eos # (Auto) 100 (0-450) /uL Baso # (Auto) 0 (0-100) /uL PT 13.4 H (9.4-12.5) SECONDS INR 1.2 (0.9-1.3) APTT 31 (25.1-36.5) SECONDS Sodium 138 (137-145) mmol/L Potassium 5.1 (3.4-5.1) mmol/L Chloride 108 H (98-107) mmol/L Carbon Dioxide 21 L (22-32) mmol/L BUN 37 H (9-20) mg/dL Creatinine 1.61 H (0.66-1.25) mg/dL Estimated GFR 42 L (>60) mL/min BUN/Creatinine Ratio 23.0 H (6-22) Glucose 163 H (80-110) mg/dL Calcium 9.4 (8.4-10.2) mg/dL Magnesium 2.0 (1.6-2.3) mg/dL Total Bilirubin 0.7 (0.2-1.3) mg/dL AST 23 (17-59) IU/L ALT 15 (<50) IU/L Alkaline Phosphatase 72 (38-126) U/L Total Creatine Kinase 46 L (55-170) U/L Troponin I 0.077 H 0.085 H 0.099 H (0.01-0.034) ng/mL Total Protein 7.1 (6.3-8.2) g/dL Albumin 4.3 (3.5-5.0) g/dL Globulin 2.8 (1.7-4.1) g/dL Albumin/Globulin Ratio 1.5 (1.0-2.8) Lipase 107 (23-300) U/L Imaging Data Chest x-ray: Radiologist's Impresson: No acute cardiopulmonary abnormality identified ECG Data Attestation: I personally reviewed and interpreted this ECG as follows: Interpretation: Wide complex tachycardia Ventricular rate of 130 MDM Narrative Medical decision making narrative: Received a call from [employer] after his pacemaker interrogation. Patient has been in a AV this associated rhythm since 12/14 yesterday morning. His ventricular tachycardia settings are set for a rate of 146 with greater than 16 beats. His heart rate is always been less than 146 so I suspect that that is why the defibrillator has not fired. Patient is relatively asymptomatic as he denies chest pain, shortness of breath, lightheadedness here in the emergency department. Labs obtained. 150 mg of amiodarone IV will be started. Care turned over to day provider to follow up and disposition. <Corina Mclean MD - Last Filed: 08/26/23 07:53> Lab Data Labs: Lab Results 08/25/23 08/25/23 08/25/23 Range/Units 06:35 10:21 12:56 WBC 4.5 (4.5-11.0) X10^3/uL RBC 4.54 (4.5-5.9) X10^6/uL Hgb 13.7 (13.5-17.5) g/dL Hct 41.3 (41-53) % MCV 91.1 (80-100) fL MCH 30.3 (26-34) PG MCHC 33.2 (30-36) % RDW 15.7 H (11.6-14.8) % Plt Count 118 L (150-400) X10^3/uL Neut % (Auto) 48.3 L (50-75) % Lymph % (Auto) 44.9 H (25-40) % [place] % (Auto) 5.1 (3-14) % Eos % (Auto) 1.5 L (2-4) % Baso % (Auto) 0.2 (0-2) % Neut # (Auto) 2200 (9524-4931) /uL Lymph # (Auto) 2000 (9308-2813) /uL [place] # (Auto) 200 (0-900) /uL Eos # (Auto) 100 (0-450) /uL Baso # (Auto) 0 (0-100) /uL PT 13.4 H (9.4-12.5) SECONDS INR 1.2 (0.9-1.3) APTT 31 (25.1-36.5) SECONDS Sodium 138 (137-145) mmol/L Potassium 5.1 (3.4-5.1) mmol/L Chloride 108 H (98-107) mmol/L Carbon Dioxide 21 L (22-32) mmol/L BUN 37 H (9-20) mg/dL Creatinine 1.61 H (0.66-1.25) mg/dL Estimated GFR 42 L (>60) mL/min BUN/Creatinine Ratio 23.0 H (6-22) Glucose 163 H (80-110) mg/dL Calcium 9.4 (8.4-10.2) mg/dL Magnesium 2.0 (1.6-2.3) mg/dL Total Bilirubin 0.7 (0.2-1.3) mg/dL AST 23 (17-59) IU/L ALT 15 (<50) IU/L Alkaline Phosphatase 72 (38-126) U/L Total Creatine Kinase 46 L (55-170) U/L Troponin I 0.077 H 0.085 H 0.099 H (0.01-0.034) ng/mL Total Protein 7.1 (6.3-8.2) g/dL Albumin 4.3 (3.5-5.0) g/dL Globulin 2.8 (1.7-4.1) g/dL Albumin/Globulin Ratio 1.5 (1.0-2.8) Lipase 107 (23-300) U/L MDM Narrative Medical decision making narrative: Received a call from [employer] after his pacemaker interrogation. Patient has been in a AV this associated rhythm since 07:10 yesterday morning. His ventricular tachycardia settings are set for a rate of 146 with greater than 16 beats. His heart rate is always been less than 146 so I suspect that that is why the defibrillator has not fired. Patient is relatively asymptomatic as he denies chest pain, shortness of breath, lightheadedness here in the emergency department. Labs obtained. 150 mg of amiodarone IV will be started. Care turned over to day provider to follow up and disposition. 930am care is assumed, patient is examined, chart reviewed. Recurrent episode of ventricular tachycardia starting yesterday morning. Slight bump in his troponin to .077. This will be repeated. He took 100 mg of oral amiodarone was given 150 mg of IV amiodarone. He remains hypotensive at 84/58, is asymptomatic with this and it seems that that is what his blood pressure has been running with his most recent visit. 10am Discussed with Dr Guerrero, cardiology. Suggested review with Dr Jordan 1030am discussed with Dr Jordan. We will have [employer] tech come over and overdrive pace him out of ventricular tachycardia and reprogrammed the pacemaker. Recommended change to amiodarone 200 BID for 1 week, then 200 daily after. His office will contact the patient for outpatient follow up. Patient is updated 220pm patient was successfully paced out of his ventricular tachycardia in the pacemaker settings were replaced. Unfortunately his troponins continued to trend upward, still likely related to the more than 24 hours of tachycardia but because the numbers are continuing to trend, in consultation with Dr. Jordan, will plan on admitting the patient observation status continue trending troponins. Have begun heparin in the emergency department. Patient will need repeat echocardiogram tomorrow. Most recent was approximately a year ago and showed ejection fraction in the 20% range. 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 350 Dr Pantoja, hospitalist at [facility]. Accepts patient in transfer. We will make sure that the pacer interrogation report as well as most recent echocardiogram are copied and go with the chart. Patient continues on heparin. It is unclear if he had a NSTEMI that caused the ventricular tachycardia or if the greater than 24 hours of elevated rate caused the elevation and troponin. Does have a slight bump in his creatinine as well. Critical Care Time <Corina Mclean MD - Last Filed: 08/26/23 07:53> Critical Care Time Critical Care Time: Yes Total Critical Care Time: 49 Attestation: Critical care time is separate from other billable procedures. There is a high probability of a significant, sudden or life-threatening deterioration that requires my full and direct attention, intervention and personal management. This critical care time includes consultation with family and other consulting doctors, review of records, and interpretation of data from labs, EKGs and imaging as well as managements of persistent ventricular tachycardia, IV antiarrhythmics, extensive coordination with consultants and transfer requirements Discharge Plan Departure Patient Disposition: [facility] Clinical Impression: Elevated troponin, Ventricular tachycardia (paroxysmal), Acute kidney injury Prescriptions: No Action amiodarone 100 mg tablet 50 mg PO Q OTHER DAY metoprolol succinate 50 mg tablet extended release 24 hr 50 mg PO BID levothyroxine 88 mcg tablet 88 mcg PO DAILY tamsulosin 0.4 mg capsule 0.8 mg PO DAILY ketoconazole 2 % cream 1 applic topical DAILY Jardiance 10 mg tablet 10 mg PO DAILY Entresto 49-51 mg tablet 1 tab PO BID aspirin 81 mg Tablet,Chewable 81 mg PO DAILY multivitamin Capsule 1 cap PO DAILY atorvastatin 40 mg Tablet 40 mg PO DAILY ascorbic acid (vitamin C) 1,000 mg Tablet Extended Release 1,000 mg PO Q12H eplerenone 25 mg Tablet 25 mg PO DAILY metformin 500 mg Tablet Extended Release 24 Hr 1,500 mg PO BEDTIME finasteride 5 mg tablet 5 mg PO DAILY furosemide 20 mg tablet 20 mg PO QWEEK meloxicam 7.5 mg tablet 7.5 mg PO DAILY (DME) Respironics DreamStation See Rx Instructions .Route .MEDSUPPLY Rx Instructions: CPAP DreamStation Min: 6 Max: 12 DME: [place] nitroglycerin 0.4 mg tablet, sublingual 0.4 mg sublingual Q5M PRN (Reason: Chest Pain) Rx Instructions: do not exceed 3 doses per episode Referrals: Carrie Garcia MD [Primary Care Provider] -
[2023-08-25] MEDS: AMIODARONE 150 MG/100 ML PIGGYBACK 600 MG IV (06:43)
[2023-08-25 06:44] LABS: Add Manual Diff / Slide Review NO; Basophils Absolute Auto 0 /uL (0-100); Basophils Percent Auto 0.2 % (0-2); Eosinophils Absolute Auto 100 /uL (0-450); Eosinophils Percent Auto 1.5 % (2-4); Hematocrit 41.3 % (41-53); Hemoglobin 13.7 g/dL (13.5-17.5); Lymphocytes Absolute Auto 2000 /uL (1100-4500); Lymphocytes Percent Auto 44.9 % (25-40); Mean Corpuscular HGB Conc 33.2 % (30-36); Mean Corpuscular Hemoglobin 30.3 PG (26-34); Mean Corpuscular Volume 91.1 fL (80-100); Monocytes Absolute Auto 200 /uL (0-900); Monocytes Percent Auto 5.1 % (3-14); Neutrophils Absolute Auto 2200 /uL (1500-7000); Neutrophils Percent Auto 48.3 % (50-75); Platelet Count 118 X10^3/uL (150-400); Red Blood Cell Count 4.54 X10^6/uL (4.5-5.9); Red Cell Distribution Width 15.7 % (11.6-14.8); White Blood Cell Count 4.5 X10^3/uL (4.5-11.0)
[2023-08-25 06:52] LABS: INR 1.2 (0.9-1.3); Prothrombin Time 13.4 SECONDS (9.4-12.5)
[2023-08-25 06:54] LABS: PTT Partial Thromboplastin Tim 31 SECONDS (25.1-36.5)
[2023-08-25 06:58] LABS: Alanine Aminotransferase 15 IU/L (<50); Albumin 4.3 g/dL (3.5-5.0); Albumin Globulin Ratio 1.5 (1.0-2.8); Alkaline Phosphatase 72 U/L (38-126); Aspartate Aminotransferase 23 IU/L (17-59); Bilirubin Total 0.7 mg/dL (0.2-1.3); Blood Urea Nitrogen 37 mg/dL (9-20); Calcium 9.4 mg/dL (8.4-10.2); Carbon Dioxide 21 mmol/L (22-32); Chloride 108 mmol/L (98-107); Creatine Kinase 46 U/L (55-170); Estimated Glomerular Filt Rate 42 mL/min (>60); Globulin 2.8 g/dL (1.7-4.1); Glucose 163 mg/dL (80-110); HEMOLYSIS < 15 (0-50); Lipase 107 U/L (23-300); Potassium 5.1 mmol/L (3.4-5.1); Sodium 138 mmol/L (137-145); Total Protein 7.1 g/dL (6.3-8.2)
[2023-08-25] MEDS: SODIUM CHLORIDE 0.9% 1,000 ML 500 ML IV (07:06)
[2023-08-25 07:09] LABS: Troponin I 0.077 ng/mL (0.01-0.034)
[2023-08-25 10:58] LABS: Troponin I 0.085 ng/mL (0.01-0.034)
--- NOTE | 2023-08-25 11:31 | PC.NURSE ---
Staff from [employer] in room changing settings on pts pacemaker
--- NOTE | 2023-08-25 13:31 | PC.NURSE ---
pt paced at a rate of 60. [employer] staff member changing perameters of pacemaker
[2023-08-25 13:35] LABS: Troponin I 0.099 ng/mL (0.01-0.034)
--- NOTE | 2023-08-25 14:42 | P.CALLCOV_ITS ---
Call Coverage Note Note Narrative of Care Provided: 83 M who was recently discharged after slow Vtach presented again with Vtach. Cardiology has recommended echo and heparin and admission. I currently think we have maximized our care capacity for this patient at [facility]. He has known low EF with wall motion abnormalities (please see previous echo results from 12/2022). However given current treatment for NSTEMI in this situation, known abnormal echo, along with possible recurrence of arrythmia, and lack of cardiology consultation available in our facility, recommend transfer for higher level of care and cardiology consultation. Should his troponin downtrend as expected the patient would realistically be discharged home.
[2023-08-25] MEDS: HEPARIN 5,000 UNIT/ML VIAL 5000 UNIT IV (14:43)
[2023-08-25] MEDS: HEPARIN DRIP 25,000 UNIT/500 ML IV.SOLN 20 UNIT IV (14:47)
--- NOTE | 2023-08-25 15:17 | PC.NURSE ---
Addendum entered by Bernie Armstrong CNA 08/25/23 17:37: Accepted at [facility] [id number] Dr[address] Saad Pantoja Original Note: Hospital Call List for Patient Transfer 1441: [facility], spoke with Maci, no beds currently, patient on wait list 1447: [facility], spoke to Adelaida, patient on wait list 1457: [facility], spoke with Shala, 25-36 hours estimated wait for a bed, patient is on wait list 1507: [facility], spoke with Anshu, patient is on wait list 1516: [facility], left a message on answering machine
--- NOTE | 2023-08-25 16:34 | PC.NURSE ---
Accepted by VM. cleared to eat. Dinner tray ordered. Given snack. Resting in bed AAOx3. at bedside. Pt's meds--Entresto, nasal spray, and jardience in bag and at bedside.
== END 2023-08-25 18:00 | disposition short-term general hospital (02) ==
PROVIDERS: Emergency Medicine; Emergency Provider Emergency Medicine; PCP Internal Medicine
DX: R79.89 Other specified abnormal findings of blood chemistry (principal); I47.20 Ventricular tachycardia, unspecified; N17.9 Acute kidney failure, unspecified
CPT/HCPCS: 36415; 71045; 80053; 82550; 83690; 83735; 84484; 85025; 85610; 85730; 93005; 96365; 96366; 96367; 96376; 99284; 99291; J0282; J1644

== ENCOUNTER → 2023-09-06 09:13 | Outpatient (CLI) | payer MEDICARE, SELFPAY ==
[2023-08-22 18:54] VITALS: BMI 26.9
[2023-09-06 10:03] LABS: BUN Creatinine Ratio 16.5 (6-22); Blood Urea Nitrogen 23 mg/dL (9-20); Calcium 8.9 mg/dL (8.4-10.2); Carbon Dioxide 27 mmol/L (22-32); Chloride 103 mmol/L (98-107); Estimated Glomerular Filt Rate 51 mL/min (>60); Glucose 144 mg/dL (80-110); HEMOLYSIS < 15 (0-50); Potassium 4.8 mmol/L (3.4-5.1); Sodium 137 mmol/L (137-145)
== END ==
PROVIDERS: PCP Internal Medicine; Referring Provider Nurse Practitioner Acute Care; Visit Provider Nurse Practitioner Acute Care
DX: N17.9 Acute kidney failure, unspecified (principal)
CPT/HCPCS: 36415; 80048

== ENCOUNTER → 2023-09-13 09:18 | Outpatient (CLI) | payer MEDICARE, SELFPAY ==
[2023-08-22 18:54] VITALS: BMI 26.9
[2023-09-13 11:09] LABS: Blood Urea Nitrogen 22 mg/dL (9-20); Calcium 9.1 mg/dL (8.4-10.2); Carbon Dioxide 27 mmol/L (22-32); Chloride 104 mmol/L (98-107); Estimated Glomerular Filt Rate 59 mL/min (>60); Glucose 103 mg/dL (80-110); HEMOLYSIS < 15 (0-50); Potassium 4.7 mmol/L (3.4-5.1); Sodium 138 mmol/L (137-145)
== END ==
LOC: LAB 09:19
PROVIDERS: PCP Internal Medicine; Referring Provider Nurse Practitioner Acute Care; Visit Provider Nurse Practitioner Acute Care
DX: I25.5 Ischemic cardiomyopathy (principal)
CPT/HCPCS: 36415; 80048

== ENCOUNTER → 2023-09-20 08:54 | Outpatient (CLI) | payer MEDICARE, SELFPAY ==
[2023-08-22 18:54] VITALS: BMI 26.9
[2023-09-20 10:30] LABS: Blood Urea Nitrogen 23 mg/dL (9-20); Calcium 9.4 mg/dL (8.4-10.2); Carbon Dioxide 27 mmol/L (22-32); Chloride 103 mmol/L (98-107); Estimated Glomerular Filt Rate 52 mL/min (>60); Glucose 126 mg/dL (80-110); HEMOLYSIS < 15 (0-50); Potassium 4.7 mmol/L (3.4-5.1); Sodium 138 mmol/L (137-145)
== END ==
PROVIDERS: PCP Internal Medicine; Referring Provider Nurse Practitioner Acute Care; Visit Provider Nurse Practitioner Acute Care
DX: I50.20 Unspecified systolic (congestive) heart failure (principal)
CPT/HCPCS: 36415; 80048

== ENCOUNTER → 2023-10-01 12:41 | Outpatient (CLI) | payer MEDICARE, SELFPAY ==
[2023-08-22 18:54] VITALS: BMI 26.9
== END ==
PROVIDERS: PCP Internal Medicine; Referring Provider Ophthalmology; Visit Provider Ophthalmology
DX: H04.321 Acute dacryocystitis of right lacrimal passage (principal); H04.331 Acute lacrimal canaliculitis of right lacrimal passage
CPT/HCPCS: 87070; 87075; 87077; 87147; 87205

== ENCOUNTER → 2023-12-01 08:12 | Outpatient (CLI) | payer MEDICARE, SELFPAY ==
[2023-08-22 18:54] VITALS: BMI 26.9
== END ==
LOC: RESP 08:13
PROVIDERS: PCP Internal Medicine; Referring Provider Internal Medicine Cardiovascular Disease; Visit Provider Internal Medicine Cardiovascular Disease
DX: Z79.899 Other long term (current) drug therapy (principal); I50.22 Chronic systolic (congestive) heart failure; Z95.810 Presence of automatic (implantable) cardiac defibrillator; I25.5 Ischemic cardiomyopathy; I47.20 Ventricular tachycardia, unspecified; I10 Essential (primary) hypertension; E78.5 Hyperlipidemia, unspecified; F17.210 Nicotine dependence, cigarettes, uncomplicated; R84.2 Abnormal level of other drugs, medicaments and biological substances in specimens from respiratory organs and thorax
CPT/HCPCS: 94060; 94726; 94729

== ENCOUNTER → 2024-01-25 08:41 | Outpatient (CLI) | payer MEDICARE, SELFPAY ==
[2023-08-22 18:54] VITALS: BMI 26.9
[2024-01-25 10:17] LABS: BUN Creatinine Ratio 18.3 (6-22); Blood Urea Nitrogen 23 mg/dL (9-20); Calcium 8.9 mg/dL (8.4-10.2); Carbon Dioxide 23 mmol/L (22-32); Chloride 105 mmol/L (98-107); Estimated Glomerular Filt Rate 57 mL/min (>60); Glucose 173 mg/dL (80-110); HEMOLYSIS < 15 (0-50); Potassium 4.8 mmol/L (3.4-5.1); Sodium 137 mmol/L (137-145)
== END ==
LOC: LAB 08:42
PROVIDERS: PCP Internal Medicine; Referring Provider Internal Medicine Cardiovascular Disease; Visit Provider Internal Medicine Cardiovascular Disease
DX: I50.22 Chronic systolic (congestive) heart failure (principal); Z79.899 Other long term (current) drug therapy
CPT/HCPCS: 36415; 80048

== ENCOUNTER 2024-04-02 15:34 | Emergency (ER) | payer MEDICARE, SELFPAY ==
[2023-08-22 18:54] VITALS: BMI 26.9
--- NOTE | 2024-04-01 17:15 | EKG_ITS ---
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
[2024-04-02] VITALS (30 sets, daily range): BP systolic 83–127; BP diastolic 52–67; PULSE 59–144; RESP 16–29; TEMP 36.6; O2SAT 92–98; BMI 27.3
--- NOTE | 2024-04-02 15:58 | DI.RAD.S_ITS ---
PROCEDURE: XR CHEST 1V INDICATIONS: chest pain TECHNIQUE: One view of the chest was acquired. COMPARISON: [facility], CR, XR CHEST 1V, 12/30/2022, 9:45. [facility], CR, XR CHEST 1V, 08/22/2023, 16:48. [facility], CR, XR CHEST 1V, 08/25/2023, 6:22. FINDINGS: Surgical changes and devices: Sternotomy wires and mediastinal clips are seen. An AICD is seen. Lungs and pleura: On this semiupright portable chest examination, no large pneumothorax or large pleural effusions are seen. No focal infiltrates are seen. Mediastinum: Mediastinal contours appear normal. Heart size is at the upper limits normal. Bones and chest wall: No suspicious bony lesions. Age-appropriate bony degenerative changes are seen. Overlying soft tissues appear unremarkable. IMPRESSION: Clear lungs. Heart size at the upper limits of normal. Postoperative and degenerative changes are seen. Dictated by: Casey Nielson M.D. on 04/02/2024 at 16:07 Approved by: Casey Nielson M.D. on 04/02/2024 at 16:07
--- NOTE | 2024-04-02 16:15 | EKG_ITS ---
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
[2024-04-02 16:17] LABS: Add Manual Diff / Slide Review NO; Basophils Absolute Auto 0 /uL (0-100); Basophils Percent Auto 0.5 % (0-2); Eosinophils Absolute Auto 100 /uL (0-450); Eosinophils Percent Auto 1.1 % (2-4); Hematocrit 40.8 % (41-53); Hemoglobin 13.4 g/dL (13.5-17.5); Lymphocytes Absolute Auto 2200 /uL (1100-4500); Lymphocytes Percent Auto 43.1 % (25-40); Monocytes Absolute Auto 200 /uL (0-900); Monocytes Percent Auto 4.6 % (3-14); Neutrophils Absolute Auto 2500 /uL (1500-7000); Neutrophils Percent Auto 50.7 % (50-75); Platelet Count 167 X10^3/uL (150-400); Red Blood Cell Count 4.48 X10^6/uL (4.5-5.9)
[2024-04-02 16:23] LABS: INR 1.2 (0.9-1.3); Prothrombin Time 14.1 SECONDS (9.4-12.5)
[2024-04-02 16:25] LABS: PTT Partial Thromboplastin Tim 27 SECONDS (25.1-36.5)
[2024-04-02 16:26] LABS: Alanine Aminotransferase 20 IU/L (<50); Albumin 4.4 g/dL (3.5-5.0); Albumin Globulin Ratio 1.8 (1.0-2.8); Alkaline Phosphatase 79 U/L (38-126); Aspartate Aminotransferase 36 IU/L (17-59); BUN Creatinine Ratio 19.8 (6-22); Bilirubin Total 0.5 mg/dL (0.2-1.3); Blood Urea Nitrogen 32 mg/dL (9-20); Calcium 9.4 mg/dL (8.4-10.2); Carbon Dioxide 24 mmol/L (22-32); Chloride 100 mmol/L (98-107); Creatine Kinase 201 U/L (55-170); Estimated Glomerular Filt Rate 42 mL/min (>60); Globulin 2.4 g/dL (1.7-4.1); Glucose 162 mg/dL (80-110); HEMOLYSIS < 15 (0-50); Lipase 68 U/L (23-300); Magnesium 1.6 mg/dL (1.6-2.3); Potassium 4.7 mmol/L (3.4-5.1); Sodium 134 mmol/L (137-145); Total Protein 6.8 g/dL (6.3-8.2)
[2024-04-02 16:38] LABS: NT-proBNP (BNP-Adult 18+) 4360 pg/mL (<450); Troponin I < 0.012 ng/mL (0.01-0.034)
--- NOTE | 2024-04-02 16:55 | ED.ARRPALP ---
HPI - Arrhythmia/Palpitations General Chief Complaint: Arrhythmia/Palpitations Stated Complaint: tachycardia Time Seen by Provider: 04/02/24 16:31 Source: patient Mode of arrival: Ambulatory History of Present Illness HPI narrative: 83-year-old gentleman with a history of pacemaker, AICD and a history of ventricular tachycardia needed electrical cardioversion previously because the rate did not trigger the AICD. At that time he was admitted to the hospital, August of 2023 with an amiodarone load continues on amiodarone at this time. He complains that he has been a bit more fatigued today not noticing significant palpitations, shortness of breath chest pain or lower extremity edema. Related Data Home Medications Medication Instructions Recorded Confirmed aspirin 81 mg chewable tablet 81 mg PO DAILY 05/11/18 08/22/23 multivitamin 1 cap PO DAILY 05/11/18 08/22/23 ascorbic acid (vitamin C) 1,000 mg 1,000 mg PO Q12H 05/16/19 08/22/23 tablet,extended release atorvastatin 40 mg tablet 40 mg PO DAILY 05/16/19 08/22/23 eplerenone 25 mg tablet 25 mg PO DAILY 05/16/19 08/22/23 metformin 500 mg tablet,extended 1,500 mg PO BEDTIME 12/21/20 08/22/23 release 24 hr Respironics DreamStation 03/19/21 08/22/23 nitroglycerin 0.4 mg sublingual 0.4 mg sublingual Q5M PRN Chest 03/17/22 08/22/23 tablet Pain finasteride 5 mg tablet 5 mg PO DAILY 05/13/23 08/22/23 furosemide 20 mg tablet 20 mg PO QWEEK 05/13/23 08/22/23 meloxicam 7.5 mg tablet 7.5 mg PO DAILY 05/13/23 08/22/23 amiodarone 100 mg tablet 50 mg PO Q OTHER DAY 08/22/23 08/22/23 empagliflozin 10 mg tablet 10 mg PO DAILY 08/22/23 08/22/23 (Jardiance) ketoconazole 2 % topical cream 1 applic topical DAILY feet 08/22/23 08/22/23 levothyroxine 88 mcg tablet 88 mcg PO DAILY 08/22/23 08/22/23 metoprolol succinate 50 mg 50 mg PO BID 08/22/23 08/22/23 tablet,extended release 24 hr sacubitril 49 mg-valsartan 51 mg 1 tab PO BID 08/22/23 08/22/23 tablet (Entresto) tamsulosin 0.4 mg capsule 0.8 mg PO DAILY 08/22/23 08/22/23 Allergies Allergy/AdvReac Type Severity Reaction Status Date / Time amoxicillin AdvReac Severe Chills Verified 12/21/23 10:47 Review of Systems Review of Systems Narrative: Pertinent positive and negative findings as per HPI Patient History Medical History CPAP (continuous positive airway pressure) dependence Obstructive sleep apnea BPH (benign prostatic hyperplasia) Hyperlipidemia Essential hypertension Coronary artery disease Congestive heart failure Thrombocytopenia Surgical History History of automatic internal cardiac defibrillator (AICD) History of heart bypass surgery Family History Father Heart disease Mother Hypertension Social History household members: spouse Smoking Status: Former smoker alcohol intake: current eating out: rarely or never Type(s) of exercise: walking Smoking Status: Former smoker alcohol intake frequency: holidays/special occasions only Substance Use Type: does not use Exam Initial Vital Signs Initial Vital Signs: Vital Signs Temperature 97.9 F 04/02/24 15:51 Pulse Rate 144 H 04/02/24 15:51 Respiratory Rate 20 04/02/24 15:51 Blood Pressure 83/52 L 04/02/24 15:51 Pulse Oximetry 98 04/02/24 15:51 Oxygen Delivery Method Room Air 04/02/24 15:51 General: Slightly pale but in no acute distress. Able to give a complete and coherent history. Well-nourished well-developed HEENT: Moist mucous membranes, normal sclera with reactive pupils, Neck: No JVD, supple Respiratory: Lungs are clear to auscultation, no wheezing no rales no rhonchi. Full and symmetrical air movement Cardiac: Tachycardic but regular. Abdomen: Soft, nontender, good bowel tones, no flank pain Skin: Warm and dry, no rashes Neurologic: Grossly neurologically intact with no obvious asymmetries or abnormalities Extremities: No trauma, well perfused Psych: Cooperative, appropriate insight and affect Procedures Cardioversion Consent Signed: Yes Indication: V-tach with decreasing blood pressure, increasing hemodynamic instability Stability: Unstable Number of attempts (shocks): 1 Joules used: 200 Cardiac rhythm post-cardioversion: Atrial paced Procedural Sedation Consent signed: Yes Time out performed: Yes Indication: cardioversion ASA Class: III Mallampati Airway Classification: Class II Preparation: director of cardiac rehabilitation applied, pulse oximeter, capnometry used, supplemental O2 applied, suction/airway equipment at bedside and IV secured IV Propofol dose (mg): 40 Intraservice time/total sedation time (min): 8 ED Sedation Level: Moderate (Concious) Patient Tolerated Procedure: Well Complications: none Course Orders Ordered: ED Orders 04/02/24 15:58 XR chest 1V Stat EKG-12 Lead Stat 04/02/24 16:05 Complete Blood Count AUTO DIFF Stat Comprehensive Metabolic Panel Stat Lipase Stat Magnesium Stat NT-proBNP (BNP-Adult 18+) Stat PTT Partial Thromboplastin Jose Luis Stat Prothrombin Time INR Stat Troponin & CK Cardiac Panel Stat Discontinued Medications Aspirin (Aspirin 81 Mg Chew Tab) 324 mg PO NOW ONE Stop: 04/02/24 15:59 Last Admin: 04/02/24 17:43 Dose: Not Given Documented By: LESA Propofol (Propofol 200 Mg/20 Ml Vial) 200 mg IV NOW ONE Stop: 04/02/24 16:59 Last Admin: 04/02/24 17:00 Dose: 40 mg Documented By: LESA Vital Signs Vital signs: Vital Signs - 8 hr 04/02/24 15:51 04/02/24 16:22 04/02/24 16:24 Temperature 97.9 F Pulse Rate 144 H 125 H Respiratory Rate 20 22 Blood Pressure 83/52 L 96/67 Pulse Oximetry 98 95 Oxygen Delivery Method Room Air 04/02/24 16:24 04/02/24 16:30 04/02/24 16:30 Temperature Pulse Rate 124 H 123 H Respiratory Rate 23 19 Blood Pressure 93/66 Pulse Oximetry 95 94 Oxygen Delivery Method 04/02/24 16:35 04/02/24 16:35 04/02/24 16:40 Temperature Pulse Rate 123 H Respiratory Rate 20 Blood Pressure 94/64 92/61 Pulse Oximetry 93 Oxygen Delivery Method 04/02/24 16:40 04/02/24 16:45 04/02/24 16:45 Temperature Pulse Rate 123 H 124 H Respiratory Rate 22 24 Blood Pressure 87/59 L Pulse Oximetry 95 94 Oxygen Delivery Method 04/02/24 16:50 04/02/24 16:50 04/02/24 16:55 Temperature Pulse Rate 124 H Respiratory Rate 23 Blood Pressure 86/59 L 92/58 L Pulse Oximetry 94 Oxygen Delivery Method 04/02/24 16:55 04/02/24 17:00 04/02/24 17:00 Temperature Pulse Rate 124 H 124 H Respiratory Rate 24 26 H Blood Pressure 102/67 Pulse Oximetry 95 94 Oxygen Delivery Method 04/02/24 17:05 04/02/24 17:05 04/02/24 17:08 Temperature Pulse Rate 124 H 73 Respiratory Rate 28 H 25 H Blood Pressure 102/63 Pulse Oximetry 94 92 Oxygen Delivery Method 04/02/24 17:08 04/02/24 17:10 04/02/24 17:10 Temperature Pulse Rate 65 Respiratory Rate 29 H Blood Pressure 102/65 95/58 L Pulse Oximetry 94 Oxygen Delivery Method 04/02/24 17:15 04/02/24 17:15 04/02/24 17:20 Temperature Pulse Rate 60 Respiratory Rate 28 H Blood Pressure 101/57 L 99/54 L Pulse Oximetry 93 Oxygen Delivery Method 04/02/24 17:20 04/02/24 17:25 04/02/24 17:25 Temperature Pulse Rate 60 60 Respiratory Rate 24 19 Blood Pressure 98/54 L Pulse Oximetry 93 93 Oxygen Delivery Method 04/02/24 17:30 04/02/24 17:30 04/02/24 17:35 Temperature Pulse Rate 61 60 Respiratory Rate 21 23 Blood Pressure 102/58 L Pulse Oximetry 96 94 Oxygen Delivery Method 04/02/24 17:35 04/02/24 17:40 04/02/24 17:40 Temperature Pulse Rate 60 Respiratory Rate 20 Blood Pressure 98/53 L 106/57 L Pulse Oximetry 93 Oxygen Delivery Method 04/02/24 17:45 04/02/24 17:45 04/02/24 17:50 Temperature Pulse Rate 60 Respiratory Rate 20 Blood Pressure 104/59 L 105/56 L Pulse Oximetry 93 Oxygen Delivery Method 04/02/24 17:50 04/02/24 17:55 04/02/24 17:55 Temperature Pulse Rate 60 60 Respiratory Rate 19 16 Blood Pressure 107/62 Pulse Oximetry 93 98 Oxygen Delivery Method 04/02/24 18:00 04/02/24 18:00 04/02/24 18:05 Temperature Pulse Rate 61 Respiratory Rate 19 Blood Pressure 109/61 106/60 Pulse Oximetry 98 Oxygen Delivery Method 04/02/24 18:05 04/02/24 18:10 04/02/24 18:10 Temperature Pulse Rate 60 60 Respiratory Rate 21 18 Blood Pressure 107/60 Pulse Oximetry 92 93 Oxygen Delivery Method 04/02/24 18:15 04/02/24 18:15 04/02/24 18:20 Temperature Pulse Rate 60 Respiratory Rate 19 Blood Pressure 107/59 L 108/67 Pulse Oximetry 94 Oxygen Delivery Method 04/02/24 18:20 04/02/24 18:25 04/02/24 18:25 Temperature Pulse Rate 60 59 L Respiratory Rate 18 21 Blood Pressure 113/58 L Pulse Oximetry 94 93 Oxygen Delivery Method 04/02/24 18:30 04/02/24 18:30 04/02/24 19:00 Temperature Pulse Rate 59 L Respiratory Rate 17 Blood Pressure 114/58 L 127/63 Pulse Oximetry 94 Oxygen Delivery Method 04/02/24 19:00 Temperature Pulse Rate 59 L Respiratory Rate 19 Blood Pressure Pulse Oximetry 94 Oxygen Delivery Method Room Air MDM - Arrhythmia/Palpitations Lab Data 04/02/24 16:05 04/02/24 16:05 Labs: Lab Results 04/02/24 Range/Units 16:05 WBC 5.0 (4.5-11.0) X10^3/uL RBC 4.48 L (4.5-5.9) X10^6/uL Hgb 13.4 L (13.5-17.5) g/dL Hct 40.8 L (41-53) % MCV 91.0 (80-100) fL MCH 30.0 (26-34) PG MCHC 33.0 (30-36) % RDW 17.0 H (11.6-14.8) % Plt Count 167 (150-400) X10^3/uL Neut % (Auto) 50.7 (50-75) % Lymph % (Auto) 43.1 H (25-40) % [place] % (Auto) 4.6 (3-14) % Eos % (Auto) 1.1 L (2-4) % Baso % (Auto) 0.5 (0-2) % Neut # (Auto) 2500 (8833-0515) /uL Lymph # (Auto) 2200 (5843-0216) /uL [place] # (Auto) 200 (0-900) /uL Eos # (Auto) 100 (0-450) /uL Baso # (Auto) 0 (0-100) /uL PT 14.1 H (9.4-12.5) SECONDS INR 1.2 (0.9-1.3) APTT 27 (25.1-36.5) SECONDS Sodium 134 L (137-145) mmol/L Potassium 4.7 (3.4-5.1) mmol/L Chloride 100 (98-107) mmol/L Carbon Dioxide 24 (22-32) mmol/L BUN 32 H (9-20) mg/dL Creatinine 1.62 H (0.66-1.25) mg/dL Estimated GFR 42 L (>60) mL/min BUN/Creatinine Ratio 19.8 (6-22) Glucose 162 H (80-110) mg/dL Calcium 9.4 (8.4-10.2) mg/dL Magnesium 1.6 (1.6-2.3) mg/dL Total Bilirubin 0.5 (0.2-1.3) mg/dL AST 36 (17-59) IU/L ALT 20 (<50) IU/L Alkaline Phosphatase 79 (38-126) U/L Total Creatine Kinase 201 H (55-170) U/L Troponin I < 0.012 (0.01-0.034) ng/mL NT-Pro-B Natriuret Pep 4360 H (<450) pg/mL Total Protein 6.8 (6.3-8.2) g/dL Albumin 4.4 (3.5-5.0) g/dL Globulin 2.4 (1.7-4.1) g/dL Albumin/Globulin Ratio 1.8 (1.0-2.8) Lipase 68 (23-300) U/L MDM Narrative Medical decision making narrative: CC: Weakness concern for recurrent arrhythmia Complicating co-morbidities: Prior episode of ventricular tachycardia, AICD/pacemaker currently in place on amiodarone, history of congestive heart failure Data collected from: patient , son Medical records reviewed: Patient had an episode of slow ventricular tachycardia that was not treated with AICD shock as it did not reach threshold for rate. He was cardioverted at that time. Notes reviewed Differential considered: Wide complex tachycardia , ventricular tachycardia, supraventricular tachycardia, heart failure acute coronary syndrome, pulmonary embolism Exam documented above, pertinent findings include: Despite the fact that patient is hypotensive and tachycardic with a wide complex rhythm he is remarkably healthy-appearing able to care in a complete conversation no obvious dyspnea or complaints of chest pain Lab Test results independently reviewed as above. Pertinent findings: CBC is unremarkable Chemistries show slight increase in creatinine to 1.6. Potassium is appropriate remainder of liver function studies are unremarkable Troponin is undetected ProBNP is slightly elevated at 4306 Lipase is within normal limits Independently reviewed EKG: Wide complex tachycardia at a rate of 124. Presumed ventricular tachycardia Imaging studies independently reviewed: Chest x-ray does not show increased pulmonary vasculature or interstitial edema, no significant cardiomegaly Consultations: Discussion with both Dr. Womack and Dr. Jordan, cardiology Treatments: Electrical cardioversion Discussion: 83-year-old gentleman who was out hunting felt bit fatigued, was concerned that he may have ventricular tachycardia as he would experienced in August of this year. Drove back from [place] and after 12 hours of ventricular tachycardia presents to the emergency department. Blood pressure was trending down and as the ventricular tachycardia continued and blood pressure hit a low of 83/40 decision was made to move to electrical cardioversion. Patient tolerated procedure well. Single shock required any returned to his atrial sensed ventricular paced rhythm at a rate in the low 70s. 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 Pacemaker is interrogated. There were multiple attempts by the pacemaker to over pace the rhythm but the rhythm never was fast enough to trigger AICD shock. Dr. Jordan has recommended increasing amiodarone to 200 mg b.i.d. for the next week. He will plan on seeing the patient in clinic within the next week for follow up and continue outpatient management. At this point there is no evidence of overwhelming heart failure, acute coronary syndrome or suggestion that he needs to be hospitalized at this time. Findings reviewed with patient and his family. He is discharged home understands instructions and will plan to follow up with the electrophysiology Clinic within the week. Critical Care Time Critical Care Time Critical Care Time: Yes Total Critical Care Time: 33 Attestation: Critical care time is separate from other billable procedures. There is a high probability of a significant, sudden or life-threatening deterioration that requires my full and direct attention, intervention and personal management. This critical care time includes consultation with family and other consulting doctors, review of records, and interpretation of data from labs, EKGs and imaging as well as managements of unstable life-threatening cardiac rhythm with cardioversion Discharge Plan Departure Patient Disposition: Home Clinical Impression: Ventricular tachycardia Instructions: DI for Cardioversion, DI for Moderate Sedation Activity Restrictions/Additional Instructions: Thank you for coming in [facility]. Although I am a bit impressed that you came all the way from [place] and your hunting site in ventricular tachycardia, I would suggest not waiting 12 hours before evaluation the next time that you notice a bit of weakness and heart rate that does not change from 126 beats per minute. We used propofol to sedate you and a single electrical shock to convert you back to sinus rhythm. There was no sign of heart attack. You do have some mild extra fluid collection likely because your heart has been going too fast for 12 hours, this is going to even out over the next day or so, please do make sure you continue your furosemide. I reviewed your case and the pacemaker interrogation report with Dr. Jordan. His recommendation was to increase her amiodarone to 200 mg morning and night for this next week and then return to 100 mg daily. His office will be contacting you to have you come in for an outpatient visit and figure out how best to treat these episodes of recurrent ventricular tachycardia that are minimally symptomatic for you. If you find that you are having new symptoms, chest pain, more shortness of breath, difficulty lying flat or are concerned that you may again be in ventricular tachycardia, please feel free to return to the ER Prescriptions: No Action amiodarone 100 mg tablet 50 mg PO Q OTHER DAY metoprolol succinate 50 mg tablet extended release 24 hr 50 mg PO BID levothyroxine 88 mcg tablet 88 mcg PO DAILY tamsulosin 0.4 mg capsule 0.8 mg PO DAILY ketoconazole 2 % cream 1 applic topical DAILY Jardiance 10 mg tablet 10 mg PO DAILY Entresto 49-51 mg tablet 1 tab PO BID aspirin 81 mg Tablet,Chewable 81 mg PO DAILY multivitamin Capsule 1 cap PO DAILY atorvastatin 40 mg Tablet 40 mg PO DAILY ascorbic acid (vitamin C) 1,000 mg Tablet Extended Release 1,000 mg PO Q12H eplerenone 25 mg Tablet 25 mg PO DAILY metformin 500 mg Tablet Extended Release 24 Hr 1,500 mg PO BEDTIME finasteride 5 mg tablet 5 mg PO DAILY furosemide 20 mg tablet 20 mg PO QWEEK meloxicam 7.5 mg tablet 7.5 mg PO DAILY (DME) Respironics DreamStation See Rx Instructions .Route .MEDSUPPLY Rx Instructions: CPAP [place] Min: 6 Max: 12 DME: [place] nitroglycerin 0.4 mg tablet, sublingual 0.4 mg sublingual Q5M PRN (Reason: Chest Pain) Rx Instructions: do not exceed 3 doses per episode Referrals: Carrie Garcia MD [Primary Care Provider] - Stand Alone Forms: Patient Portal/API
[2024-04-02] MEDS: propofoL 200 MG/20 ML VIAL IV (17:00)
--- NOTE | 2024-04-02 17:15 | EKG_ITS ---
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
--- NOTE | 2024-04-02 17:31 | PC.NURSE ---
1645 HR 123 BP 87/59, physician aware. 1650 HR 123 BP 86/59, physician aware.
--- NOTE | 2024-04-02 17:40 | PC.NURSE ---
HR 123 @ 1700, procedural timeout called at 1705, 40 mg propofol given at 1705, Pt cardioverted @ 1706, physician RT medical charge entry specialist in the room, 40 mg propofol given by physician. Patient converted to normal rhythm, 60HR BP 106/57
--- NOTE | 2024-04-02 19:09 | PC.NURSE ---
Pt ambulatory around department and to restroom without difficulty or assistance, 1 person standby.
== END 2024-04-02 19:11 | disposition home or self-care (01) ==
PROVIDERS: Emergency Provider Emergency Medicine; PCP Internal Medicine
DX: I47.20 Ventricular tachycardia, unspecified (principal); I44.0 Atrioventricular block, first degree; Z95.0 Presence of cardiac pacemaker
CPT/HCPCS: 36415; 71045; 80053; 82550; 83690; 83735; 83880; 84484; 85025; 85610; 85730; 92960; 93005; 99284; 99291; J2704

== ENCOUNTER → 2024-08-31 08:13 | Outpatient (CLI) | payer MEDICARE, SELFPAY ==
[2023-08-22 18:54] VITALS: BMI 26.9
== END ==
PROVIDERS: PCP Internal Medicine; Referring Provider Internal Medicine Cardiovascular Disease; Visit Provider Internal Medicine Cardiovascular Disease
DX: I50.22 Chronic systolic (congestive) heart failure (principal); R94.2 Abnormal results of pulmonary function studies; Z79.899 Other long term (current) drug therapy; Z87.891 Personal history of nicotine dependence; Z86.16 Personal history of COVID-19
CPT/HCPCS: 94060; 94726; 94729

== ENCOUNTER → 2024-09-29 07:08 | Outpatient (CLI) | payer MEDICARE, SELFPAY ==
[2023-08-22 18:54] VITALS: BMI 26.9
[2024-09-29 08:16] LABS: BUN Creatinine Ratio 23.9 (6-22); Blood Urea Nitrogen 32 mg/dL (9-20); Carbon Dioxide 27 mmol/L (22-32); Chloride 100 mmol/L (98-107); Estimated Glomerular Filt Rate 53 mL/min (>60); Glucose 163 mg/dL (70-99); HEMOLYSIS < 15 (0-50); Potassium 4.9 mmol/L (3.4-5.1); Sodium 136 mmol/L (137-145)
== END ==
LOC: LAB 07:10
PROVIDERS: PCP Internal Medicine; Referring Provider Internal Medicine Cardiovascular Disease; Visit Provider Internal Medicine Cardiovascular Disease
DX: I47.20 Ventricular tachycardia, unspecified (principal)
CPT/HCPCS: 36415; 80048

== ENCOUNTER → 2024-11-23 10:08 | Outpatient (CLI) | payer MEDICARE, SELFPAY ==
[2023-08-22 18:54] VITALS: BMI 26.9
[2024-11-23 11:24] LABS: Free T4, Direct Thyroxine 1.34 ng/dL (0.78-2.19)
[2024-11-23 11:38] LABS: Thyroid Stimulating Hormone 5.77 uIU/mL (0.47-4.68)
== END ==
PROVIDERS: PCP Internal Medicine; Referring Provider Nurse Practitioner Acute Care; Visit Provider Nurse Practitioner Acute Care
DX: Z79.899 Other long term (current) drug therapy (principal)
CPT/HCPCS: 36415; 84439; 84443

== ENCOUNTER 2025-03-03 10:14 | Inpatient (IN) | payer MEDICARE, SELFPAY ==
[2023-08-22 18:54] VITALS: BMI 26.9
[2025-03-03] VITALS (12 sets, daily range): BP systolic 104–125; BP diastolic 50–75; PULSE 60–102; RESP 12–16; TEMP 35.9–36.6; O2SAT 92–98; BMI 27.6
--- NOTE | 2025-03-03 11:12 | ED.EYEPROB ---
HPI - Eye Problem General Chief complaint: Eye Problems Stated complaint: LT eye infection; tear ducts plugged Time Seen by Provider: 03/03/25 10:16 History of Present Illness HPI Narrative: 84-year-old gentleman history of pacemaker AICD, history of ventricular tachycardia, diabetes presents with left facial swelling seen twice already initially placed on Levaquin switch to cefdinir but continues to be symptomatic at this time with more redness warmth swelling blurred vision but clear discharge at this time. He denies fever, chills, bodyaches, dental pain, difficulty swallowing, speaking or trauma to the area. Other than what is stated 14 point review of system is negative. Related Data Home Medications ?Medication ?Instructions ?Recorded ?Confirmed aspirin 81 mg chewable tablet 81 mg PO DAILY 05/11/18 03/01/25 multivitamin 1 cap PO DAILY 05/11/18 03/01/25 ascorbic acid (vitamin C) 1,000 mg 1,000 mg PO Q12H 05/16/19 03/01/25 tablet,extended release atorvastatin 40 mg tablet 40 mg PO DAILY 05/16/19 03/01/25 eplerenone 25 mg tablet 25 mg PO DAILY 05/16/19 03/01/25 metformin 500 mg tablet,extended 1,500 mg PO BEDTIME 12/21/20 03/01/25 release 24 hr Respironics DreamStation 03/19/21 03/01/25 nitroglycerin 0.4 mg sublingual 0.4 mg sublingual Q5M PRN Chest 03/17/22 03/01/25 tablet Pain finasteride 5 mg tablet 5 mg PO DAILY 05/13/23 03/01/25 furosemide 20 mg tablet 20 mg PO QWEEK 05/13/23 03/01/25 amiodarone 100 mg tablet 50 mg PO Q OTHER DAY 08/22/23 03/01/25 empagliflozin 10 mg tablet 10 mg PO DAILY 08/22/23 03/01/25 (Jardiance) levothyroxine 88 mcg tablet 88 mcg PO DAILY 08/22/23 03/01/25 metoprolol succinate 50 mg 50 mg PO BID 08/22/23 03/01/25 tablet,extended release 24 hr sacubitril 49 mg-valsartan 51 mg 1 tab PO BID 08/22/23 03/01/25 tablet (Entresto) tamsulosin 0.4 mg capsule 0.8 mg PO DAILY 08/22/23 03/01/25 Previous Rx's ?Medication ?Instructions ?Recorded cefdinir 300 mg capsule 300 mg PO BID #14 caps 03/01/25 erythromycin 5 mg/gram (0.5 %) eye 1 cm ophthalmic (eye) .COMPLEX 03/01/25 ointment #3.5 grams Allergies Allergy/AdvReac Type Severity Reaction Status Date / Time amoxicillin AdvReac Severe Chills Verified 03/01/25 10:42 Review of Systems Review of Systems ROS Unobtainable: All systems reviewed & are unremarkable except as noted in HPI and below Patient History Medical History CPAP (continuous positive airway pressure) dependence Obstructive sleep apnea BPH (benign prostatic hyperplasia) Hyperlipidemia Essential hypertension Coronary artery disease Congestive heart failure Thrombocytopenia Surgical History History of automatic internal cardiac defibrillator (AICD) History of heart bypass surgery Family History Father Heart disease Mother Hypertension Social History household members: spouse alcohol intake: current eating out: rarely or never Type(s) of exercise: walking alcohol intake frequency: holidays/special occasions only Exam Narrative Exam Narrative: GENERAL: [84] year old patient appears stated age. Well-developed patient, in mild distress. HEAD: Atraumatic. Normocephalic. EYES: Pupils equal round and reactive. Extraocular motions intact. No scleral icterus. No injection or drainage. Left-sided facial redness warmth swelling ENT: Nose without bleeding, purulent drainage. Throat without erythema, tonsillar hypertrophy or exudate. Airway patent. NECK: Trachea midline. Non tender CARDIOVASCULAR: Regular rate and rhythm without murmurs, gallops, or rubs. RESPIRATORY: Clear to auscultation. Breath sounds equal bilaterally. No wheezes, rales, or rhonchi. GASTROINTESTINAL: Abdomen soft, non-tender, nondistended. EXTREMITIES: No edema or joint tenderness. BACK: Nontender without deformity or crepitance. No flank tenderness. NEURO: AOx3. SKIN: No rash or erythema of visible areas Initial Vital Signs Initial Vital Signs: Vital Signs Temperature 97.8 F 03/03/25 10:42 Pulse Rate 77 03/03/25 10:42 Respiratory Rate 16 03/03/25 10:42 Blood Pressure 117/65 03/03/25 10:42 Pulse Oximetry 96 03/03/25 10:42 Oxygen Delivery Method Room Air 03/03/25 10:42 Course Orders Ordered: ED Orders 03/03/25 11:12 CT facial bones w con Stat 03/03/25 11:15 CBC Auto Diff [Complete Blood Count AUTO DIFF] Stat CMP [Comprehensive Metabolic Panel] Stat Lactate (Lactic Acid) Stat Prothrombin Time INR Stat 03/03/25 11:58 Blood Culture Stat Discontinued Medications Vancomycin HCl 1,750 mg/ (Sodium Chloride) 500 mls @ 250 mls/hr IV NOW ONE Stop: 03/03/25 11:13 Last Admin: 03/03/25 12:59 Dose: 250 mls/hr Documented By: EMILY Ceftriaxone Sodium 1,000 mg/ (Sodium Chloride) 100 mls @ 200 mls/hr IV NOW ONE Stop: 03/03/25 11:13 Last Infusion: 03/03/25 12:53 Dose: Infused Documented By: Admin: 03/03/25 12:15 Dose: 200 mls/hr Documented By: EMILY Lactated Ringer's (Lactated Ringers) 1,000 mls @ 1,000 mls/hr IV BOLUS ONE Stop: 03/03/25 12:12 Last Admin: 03/03/25 12:58 Dose: 1,000 mls/hr Documented By: EMILY Vital Signs Vital signs: Vital Signs - 8 hr 03/03/25 10:42 Temperature 97.8 F Pulse Rate 77 Respiratory Rate 16 Blood Pressure 117/65 Pulse Oximetry 96 Oxygen Delivery Method Room Air MDM - Eye Problem Lab Data 03/03/25 11:15 03/03/25 11:15 Labs: Lab Results 03/03/25 Range/Units 11:15 WBC 4.6 (4.5-11.0) X10^3/uL RBC 4.06 L (4.5-5.9) X10^6/uL Hgb 12.0 L (13.5-17.5) g/dL Hct 36.4 L (41-53) % MCV 89.5 (80-100) fL MCH 29.5 (26-34) PG MCHC 33.0 (30-36) % RDW 16.5 H (11.6-14.8) % Plt Count 162 (150-400) X10^3/uL Neut % (Auto) 53.5 (50-75) % Lymph % (Auto) 38.6 (25-40) % [place] % (Auto) 6.0 (3-14) % Eos % (Auto) 1.4 L (2-4) % Baso % (Auto) 0.5 (0-2) % Neut # (Auto) 2400 (1347-9649) /uL Lymph # (Auto) 1800 (7457-2669) /uL [place] # (Auto) 300 (0-900) /uL Eos # (Auto) 100 (0-450) /uL Baso # (Auto) 0 (0-100) /uL PT 17.8 H (9.4-12.5) SECONDS INR 1.6 H (0.9-1.3) Sodium 137 (137-145) mmol/L Potassium 4.5 (3.4-5.1) mmol/L Chloride 101 (98-107) mmol/L Carbon Dioxide 24 (22-32) mmol/L BUN 28 H (9-20) mg/dL Creatinine 1.26 H (0.66-1.25) mg/dL Estimated GFR 57 L (>60) mL/min BUN/Creatinine Ratio 22.2 H (6-22) Glucose 103 H (70-99) mg/dL Lactate 1.2 (0.7-2.1) mmol/L Calcium 9.0 (8.4-10.2) mg/dL Total Bilirubin 0.4 (0.2-1.3) mg/dL AST 37 (17-59) IU/L ALT 15 (<50) IU/L Alkaline Phosphatase 65 (38-126) U/L Total Protein 6.8 (6.3-8.2) g/dL Albumin 4.2 (3.5-5.0) g/dL Globulin 2.6 (1.7-4.1) g/dL Albumin/Globulin Ratio 1.6 (1.0-2.8) Imaging Data CT scan - head: Radiologist's Impression: [place] [id number] CT Scan Report Signed Patient: Fer Lawrence MR#: [id number] : 1940 Acct:[id number] Age/Sex: 84 / M Date of Service: 03/03/25 Loc: ED Accession Number: [id number] Procedure: CT facial bones w con Ordering Provider: Gold Martínez D.O. PROCEDURE: CT FACIAL BONES W CON INDICATIONS: L periorbital cellulitis TECHNIQUE: After the administration of intravenous contrast, 2.5 mm axial sections acquired from the mid-neck to the frontal sinuses, with coronal and sagittal reformats. For radiation dose reduction, the following was used: automated exposure control, adjustment of mA and/or kV according to patient size. COMPARISON: None. FINDINGS: Image quality: There is artifact associated with the metallic hardware. Artifact from the metallic hardware is reduced by metal reconstruction algorithm. Soft tissues: There is abnormal soft tissue swelling seen involving the left periorbital region. Focal inflammatory change can be seen involving the medial inferior left orbit, at the orifice of the nasolacrimal duct. No soft tissue gas or abscess can be seen. No postseptal involvement is seen. Vascular: Visualized vascular structures appear patent throughout. Bony vascular foramina and canals appear normal. Bones: Prior antrectomy change can be seen with removal of the ostiomeatal complexes, the medial villalobos of the maxillary sinuses, and several of the ethmoid air cell septations. There is partial absence of the nasal septum. Sinuses: Generalized moderate to prominent paranasal sinus disease can be seen. IMPRESSION: Left periorbital cellulitis, without abscess. Focal inflammatory change can be seen involving the left inferior medial orbit, which is consistent with focal abnormality of the nasolacrimal duct. Generalized moderate to prominent paranasal sinus disease can be seen. Prior sinus surgery, with extensive bilateral antrectomy. Dictated by: Casey Nielson M.D. on 03/03/2025 at 10:52 Approved by: Casey Nielson M.D. on 03/03/2025 at 10:55 [facility] Narrative Medical decision making narrative: All lab work vital signs nurse triage note medication list previous ER visits in all imaging studies reviewed. CT scan of the face contrast showed left periorbital cellulitis without abscess. Focal inflammatory change can be seen in the left inferior medial orbit which is most consistent his with focal abnormality of the nasolacrimal duct. Generalized moderate to prominent paranasal sinus sinus disease can be seen. Prior sinus surgery with extensive bilateral antrectomy. WBC 4.6 hemoglobin 12.0 platelet 162 INR 1.6 sodium 137 potassium 4.5 chloride 101 BUN 28 creatinine 1.26 glucose 103 take acid 1.2. Case discussed with Dr. HAMEED beater out at [facility] whom I sent the pictures to and has reviewed the CT scan as well OK to admit to hospitalist service here at [facility] if things do not get better in the next 24-48-72 hours readily available to reconsult. Case discussed with Dr. Boss who has graciously accepted the patient for inpatient admission Discharge Plan Departure Patient Disposition: Admitted As Inpatient Clinical Impression: Periorbital cellulitis of left eye Admit Date/Time: 03/03/25 13:33 Admit Provider: Harjinder Gilliland
[2025-03-03 12:10] LABS: Add Manual Diff / Slide Review NO; Hematocrit 36.4 % (41-53); Hemoglobin 12.0 g/dL (13.5-17.5); Lymphocytes Absolute Auto 1800 /uL (1100-4500); Mean Corpuscular HGB Conc 33.0 % (30-36); Mean Corpuscular Hemoglobin 29.5 PG (26-34); Mean Corpuscular Volume 89.5 fL (80-100); Platelet Count 162 X10^3/uL (150-400)
[2025-03-03 12:16] LABS: Lactate (Lactic Acid) 1.2 mmol/L (0.7-2.1)
[2025-03-03 12:17] LABS: Alanine Aminotransferase 15 IU/L (<50); Albumin 4.2 g/dL (3.5-5.0); Albumin Globulin Ratio 1.6 (1.0-2.8); Alkaline Phosphatase 65 U/L (38-126); Blood Urea Nitrogen 28 mg/dL (9-20); Calcium 9.0 mg/dL (8.4-10.2); Carbon Dioxide 24 mmol/L (22-32); Chloride 101 mmol/L (98-107); Estimated Glomerular Filt Rate 57 mL/min (>60); Globulin 2.6 g/dL (1.7-4.1); Glucose 103 mg/dL (70-99); HEMOLYSIS 25 (0-50); Potassium 4.5 mmol/L (3.4-5.1); Sodium 137 mmol/L (137-145); Total Protein 6.8 g/dL (6.3-8.2)
[2025-03-03 12:20] LABS: INR 1.6 (0.9-1.3); Prothrombin Time 17.8 SECONDS (9.4-12.5)
[2025-03-03] MEDS: LACTATED RINGERS 1,000 ML 1000 ML IV (12:58)
[2025-03-03] MEDS: VANCOMYCIN 1,750 MG in SODIUM CHLORIDE 0.9% 500 ML 250 MG IV (12:59)
[2025-03-03] MEDS: ACETAMINOPHEN 325 MG TABLET 650 MG PO (13:53)
[2025-03-03] MEDS: NEOMYCIN/POLY/DEX OPHTH OINT 1 APPLIC EYE-LEFT ×2 (16:55→20:50)
--- NOTE | 2025-03-03 17:46 | PM.HP.1 ---
History of Present Illness History of Present Illness Date Patient Seen: 03/03/25 Chief complaint: LT eye infection; tear ducts plugged Narrative: Chief complaint: Periorbital cellulitis left eye History of present illness: 03/03: 84-year-old male history of obstructed tear ducts and previous periorbital cellulitis developed redness pain and swelling around his left eye 02/28: Was started on oral Omnicef on 03/[address] Jensen his fermenting cellars receiver. There was some improvement in the cellulitis but it did not continue to improve patient came to the emergency room 03/03. Findings in the emergency department significant for orbital cellulitis with focal inflammatory change involving the medial inferior left orbit at the orifice of the nasolacrimal duct with prior antrectomy and removal of the ostiomeatal complexes the meatal villalobos of the maxillary sinuses in several of the ethmoid air cell septations Patient was started on intravenous vancomycin and ceftriaxone per standards and guidelines for periorbital cellulitis. [facility] ophthalmology was consulted reviewed images and agree that the patient could be treated here at [facility] and reconsult them in if there is not improvement with IV antibiotic therapy with vancomycin ceftriaxone. Patient was admitted to medicine service Past medical history significant for: Ischemic cardiomyopathy with previous episodes of ventricular tachycardia status post AICD EF 20-25% Diabetes mellitus CKD SAUL on CPAP Review of systems: No fever or chills No visual changes No chest pain shortness for No nausea vomiting No fatigue Physical exam: Elderly male no acute distress HEENT left periorbital edema with subconjunctival injection No labored respiration Abdomen benign Extremities no edema Assessment and plan: Periorbital edema with lacrimal duct dysfunction and previous sinus surgeries started on antibiotic therapy Vancomycin and ceftriaxone per reference recommended standards of EBM Monitor progress Chronic medical conditions: Ischemic cardiomyopathy with previous episodes of ventricular tachycardia status post AICD EF 20-25% Diabetes mellitus CKD SAUL on CPAP DVT prophylaxis: Not indicated patient is up ambulatory Code status: Full code blue Disposition: Inpatient we will consult fermenting cellars receiver Dr. Jensen to see if she can come by and see the patient Time based billin minutes were involved in the management of this including [id number] evaluation review of chart discussion with emergency provider review of recommendations from [facility] and review of practice status through electronic evidence based medicine standards [facility] Medical History CPAP (continuous positive airway pressure) dependence Obstructive sleep apnea BPH (benign prostatic hyperplasia) Hyperlipidemia Essential hypertension Coronary artery disease Congestive heart failure Thrombocytopenia Surgical History History of automatic internal cardiac defibrillator (AICD) History of heart bypass surgery Family History Father Heart disease Mother Hypertension Social History household members: spouse Smoking Status: Former smoker alcohol intake: current eating out: rarely or never Type(s) of exercise: walking Meds Home Medications and Allergies Home Medications ?Medication ?Instructions ?Recorded ?Confirmed ?Type aspirin 81 mg chewable tablet 81 mg PO DAILY 05/11/18 03/03/25 History multivitamin 1 cap PO DAILY 05/11/18 03/03/25 History ascorbic acid (vitamin C) 1,000 mg 1,000 mg PO Q12H 05/16/19 03/03/25 History tablet,extended release atorvastatin 40 mg tablet 40 mg PO DAILY 05/16/19 03/03/25 History eplerenone 25 mg tablet 25 mg PO DAILY 05/16/19 03/03/25 History metformin 500 mg tablet,extended 1,000 mg PO BID 12/21/20 03/03/25 History release 24 hr Respironics DreamStation 03/19/21 03/03/25 History nitroglycerin 0.4 mg sublingual 0.4 mg sublingual Q5M PRN Chest 03/17/22 03/03/25 History tablet Pain finasteride 5 mg tablet 5 mg PO DAILY 05/13/23 03/03/25 History furosemide 20 mg tablet 20 mg PO QWEEK 05/13/23 03/03/25 History amiodarone 100 mg tablet 50 mg PO Q24H 08/22/23 03/03/25 History empagliflozin 10 mg tablet 10 mg PO DAILY 08/22/23 03/03/25 History (Jardiance) levothyroxine 88 mcg tablet 88 mcg PO DAILY 08/22/23 03/03/25 History metoprolol succinate 50 mg 50 mg PO BID 08/22/23 03/03/25 History tablet,extended release 24 hr sacubitril 49 mg-valsartan 51 mg 1 tab PO BID 08/22/23 03/03/25 History tablet (Entresto) tamsulosin 0.4 mg capsule 0.8 mg PO DAILY 08/22/23 03/03/25 History erythromycin 5 mg/gram (0.5 %) eye 1 cm ophthalmic (eye) .COMPLEX 03/01/25 03/03/25 Rx ointment #3.5 grams Allergies Allergy/AdvReac Type Severity Reaction Status Date / Time amoxicillin AdvReac Severe Chills Verified 03/03/25 14:27 Exam Vital Signs (past 8 hours): - 03/03/25 10:42 03/03/25 12:18 03/03/25 12:19 Temperature 97.8 F Pulse Rate 77 60 Respiratory Rate 16 Blood Pressure 117/65 112/57 L Pulse Oximetry 96 95 Oxygen Delivery Method Room Air 03/03/25 12:19 03/03/25 12:30 03/03/25 12:30 Temperature Pulse Rate 60 60 Respiratory Rate Blood Pressure 111/62 Pulse Oximetry 95 95 Oxygen Delivery Method 03/03/25 13:00 03/03/25 13:07 03/03/25 13:07 Temperature Pulse Rate 79 70 Respiratory Rate Blood Pressure 113/58 L Pulse Oximetry 96 98 Oxygen Delivery Method 03/03/25 13:30 03/03/25 13:30 03/03/25 13:57 Temperature Pulse Rate 60 Respiratory Rate Blood Pressure 119/59 L Pulse Oximetry 96 Oxygen Delivery Method Room Air 03/03/25 14:14 Temperature 96.7 F L Pulse Rate 60 Respiratory Rate 15 Blood Pressure 125/75 Pulse Oximetry 96 Oxygen Delivery Method Oxygen Delivery Method Room Air Objective Labs 03/03/25 11:15 03/03/25 11:15 Labs: Laboratory Results - last 24 hr 03/03/25 11:15 WBC 4.6 RBC 4.06 L Hgb 12.0 L Hct 36.4 L MCV 89.5 MCH 29.5 MCHC 33.0 RDW 16.5 H Plt Count 162 Neut % (Auto) 53.5 Lymph % (Auto) 38.6 [place] % (Auto) 6.0 Eos % (Auto) 1.4 L Baso % (Auto) 0.5 Neut # (Auto) 2400 Lymph # (Auto) 1800 [place] # (Auto) 300 Eos # (Auto) 100 Baso # (Auto) 0 PT 17.8 H INR 1.6 H Sodium 137 Potassium 4.5 Chloride 101 Carbon Dioxide 24 BUN 28 H Creatinine 1.26 H Estimated GFR 57 L BUN/Creatinine Ratio 22.2 H Glucose 103 H Lactate 1.2 Calcium 9.0 Total Bilirubin 0.4 AST 37 ALT 15 Alkaline Phosphatase 65 Total Protein 6.8 Albumin 4.2 Globulin 2.6 Albumin/Globulin Ratio 1.6 Assessment & Plan Time-Based Coding :: [TOTAL MINUTES] spent with patient and on the chart (including review of chart, obtaining history, exam, reviewing outside data, placing orders, documenting exam and treatment plan, and counseling patient) on [DATE]. Quality VTE Deep Vein Thrombosis/Pulmonary Embolism Present on Admission: No
[2025-03-03] MEDS: METOPROLOL ER 50 MG TABLET PO (20:49)
[2025-03-03] MEDS: ASCORBIC ACID 500 MG TABLET 1000 MG PO (20:49)
[2025-03-04] VITALS (7 sets, daily range): BP systolic 119–125; BP diastolic 66–77; PULSE 60–104; RESP 16; TEMP 36.1–36.4; O2SAT 92–95
[2025-03-04] MEDS: LEVOTHYROXINE 88 MCG TABLET PO (06:41)
[2025-03-04] MEDS: TAMSULOSIN 0.4 MG CAPSULE 0.8 MG PO (08:00)
[2025-03-04] MEDS: MULTIVITAMIN 1 TABLET 1 TAB PO (08:49)
[2025-03-04] MEDS: ASPIRIN 81 MG CHEW TAB PO (08:49)
[2025-03-04] MEDS: ASCORBIC ACID 500 MG TABLET 1000 MG PO ×2 (08:49→20:06)
[2025-03-04] MEDS: FINASTERIDE 5 MG TABLET PO (08:49)
[2025-03-04] MEDS: ATORVASTATIN 20 MG TABLET 40 MG PO (08:50)
[2025-03-04] MEDS: SODIUM CHLORIDE 0.9% FLUSH 10 ML IV ×2 (08:51→21:26)
[2025-03-04] MEDS: METOPROLOL ER 50 MG TABLET PO ×2 (08:54→20:06)
[2025-03-04] MEDS: AMIODARONE 200 MG TABLET 50 MG PO (08:55)
[2025-03-04] MEDS: NEOMYCIN/POLY/DEX OPHTH OINT 1 APPLIC EYE-LEFT ×4 (08:58→20:06)
[2025-03-04 09:48] LABS: Blood Urea Nitrogen 24 mg/dL (9-20); Calcium 8.8 mg/dL (8.4-10.2); Carbon Dioxide 24 mmol/L (22-32); Chloride 101 mmol/L (98-107); Estimated Glomerular Filt Rate > 60 mL/min (>60); Glucose 160 mg/dL (70-99); HEMOLYSIS < 15 (0-50); Potassium 4.9 mmol/L (3.4-5.1); Sodium 135 mmol/L (137-145)
[2025-03-04 10:15] LABS: Add Manual Diff / Slide Review NO; Hematocrit 36.7 % (41-53); Hemoglobin 12.1 g/dL (13.5-17.5); Lymphocytes Absolute Auto 1900 /uL (1100-4500); Mean Corpuscular HGB Conc 32.9 % (30-36); Mean Corpuscular Hemoglobin 29.1 PG (26-34); Mean Corpuscular Volume 88.5 fL (80-100); Platelet Count 173 X10^3/uL (150-400)
--- NOTE | 2025-03-04 11:55 | P.PN_ITS ---
Subjective Subjective Date Patient Seen: 03/04/25 Interval history: Chief complaint: Periorbital cellulitis left eye History of present illness: 03/03: 84-year-old male history of obstructed tear ducts and previous periorbital cellulitis developed redness pain and swelling around his left eye 02/28: Was started on oral Omnicef on 03/[address] Jensen his management tech. There was some improvement in the cellulitis but it did not continue to improve patient came to the emergency room 03/03. Findings in the emergency department significant for orbital cellulitis with focal inflammatory change involving the medial inferior left orbit at the orifice of the nasolacrimal duct with prior antrectomy and removal of the ostiomeatal complexes the meatal villalobos of the maxillary sinuses in several of the ethmoid air cell septations Patient was started on intravenous vancomycin and ceftriaxone per standards and guidelines for periorbital cellulitis. [facility] ophthalmology was consulted reviewed images and agree that the patient could be treated here at [facility] and reconsult them in if there is not improvement with IV antibiotic therapy with vancomycin ceftriaxone. Patient was admitted to medicine service Hospital course: 03/04: Less swelling and vision is clearing in the left eye no fevers or chills overnight tolerating medication Review of systems: No fever or chills No visual changes No chest pain shortness for No nausea vomiting No fatigue Physical exam: Elderly male no acute distress HEENT left periorbital edema with subconjunctival injection No labored respiration Abdomen benign Extremities no edema Assessment and plan: Periorbital edema with lacrimal duct dysfunction and previous sinus surgeries started on antibiotic therapy * Vancomycin and ceftriaxone per reference recommended standards of EBM * Monitor progress Chronic medical conditions: * Ischemic cardiomyopathy with previous episodes of ventricular tachycardia status post AICD EF 20-25% * Diabetes mellitus * CKD * SAUL on CPAP DVT prophylaxis: * Not indicated patient is up ambulatory Code status: * Full code blue Disposition: * Inpatient we will consult management tech Dr. Jensen to see if she can come by and see the patient * Most likely anticipate discharge Tuesday 03/06 Time based billin minutes were involved in the management of this including [id number] evaluation review of chart discussion with emergency provider review of recommendations from [facility] and review of practice status through electronic evidence based medicine standards Exam Vital Signs (past 8 hours): - 03/04/25 08:54 03/04/25 11:42 03/04/25 11:44 Temperature 97.3 F L Pulse Rate 62 62 62 Respiratory Rate 16 Blood Pressure 121/66 125/69 125/69 Pulse Oximetry 92 Oxygen Delivery Method Room Air Oxygen Flow Rate 0 Objective Labs 03/04/25 09:25 03/04/25 09:25 Labs: Laboratory Results - last 24 hr 03/03/25 03/04/25 03/04/25 11:15 06:48 09:25 WBC 4.6 5.0 RBC 4.06 L 4.15 L Hgb 12.0 L 12.1 L Hct 36.4 L 36.7 L MCV 89.5 88.5 MCH 29.5 29.1 MCHC 33.0 32.9 RDW 16.5 H 16.5 H Plt Count 162 173 Neut % (Auto) 53.5 56.3 Lymph % (Auto) 38.6 36.8 [place] % (Auto) 6.0 5.5 Eos % (Auto) 1.4 L 1.2 L Baso % (Auto) 0.5 0.2 Neut # (Auto) 2400 2800 Lymph # (Auto) 1800 1900 [place] # (Auto) 300 300 Eos # (Auto) 100 100 Baso # (Auto) 0 0 PT 17.8 H INR 1.6 H Sodium 137 135 L Potassium 4.5 4.9 Chloride 101 101 Carbon Dioxide 24 24 BUN 28 H 24 H Creatinine 1.26 H 1.16 Estimated GFR 57 L > 60 BUN/Creatinine Ratio 22.2 H 20.7 Glucose 103 H 160 H POC Whole Bld Glucose 136 H Lactate 1.2 Calcium 9.0 8.8 Total Bilirubin 0.4 AST 37 ALT 15 Alkaline Phosphatase 65 Total Protein 6.8 Albumin 4.2 Globulin 2.6 Albumin/Globulin Ratio 1.6 PFSH Medical History CPAP (continuous positive airway pressure) dependence Obstructive sleep apnea BPH (benign prostatic hyperplasia) Hyperlipidemia Essential hypertension Coronary artery disease Congestive heart failure Thrombocytopenia Surgical History History of automatic internal cardiac defibrillator (AICD) History of heart bypass surgery Family History Father Heart disease Mother Hypertension Social History household members: spouse Smoking Status: Former smoker alcohol intake: current eating out: rarely or never Type(s) of exercise: walking Assessment & Plan Time-Based Coding :: [TOTAL MINUTES] spent with patient and on the chart (including review of chart, obtaining history, exam, reviewing outside data, placing orders, documenting exam and treatment plan, and counseling patient) on [DATE]. Quality VTE Deep Vein Thrombosis/Pulmonary Embolism Present on Admission: No
--- NOTE | 2025-03-04 12:04 | CM.IDA ---
Initial DCP Assessment Patient is 84 y/o male who presents to due to concern for eye infection requiring antibiotics. Patient is diagnosed with periobital cellulites of left eye. Patient's PCP is Carrie Garcia, patient has Medicare and [facility] insurance. [employer] enters room to meet with patient, patient presents as A/Ox4, present with patient is patient's spouse. Patient resides in [place] with spouse, patient has son and daughter that live nearby. Patient endorses he is independent with ADLs and drives at baseline. Patient endorses he has upcoming eye surgery in two weeks. Patient endorses concern that he will miss his PCP appt tomorrow morning with Carrie Garcia. [employer] calls PCP office and cancels appt and requests that the clinic call patient to reschedule, it is reported that they will reach out to patient to reschedule today or tomorrow. Patient denies any needs upon d/c and endorses preference to d/c to home upon medical clearance. Discharge anticipated for Tuesday 03/06. Plan: patient to continue to receive antibiotics, no d/c needs at this time, patient to f/u with outpatient providers and d/c to home with spouse upon medical clearance. CYNDI Tijerina Discharge Planning/Care Management CM Discharge Assessment Start: 03/03/25 13:57 Freq: Status: Active Protocol: Document 03/04/25 11:58 LN (Rec: 03/04/25 12:02 LN [id number]) Discharge Planning Assessment Assigned Discharge CYNDI Meyer [employer] Support Worker Insurance [facility],Medicare DPOA/Assigned Spouse- [place] Designee Name Contact Information [phone] Advance Directives? Yes Advance Directives Yes on File History Provided By Patient,Family Member,Medical Record Has Patient been No admitted in last 30 days? Prior Living House Arrangements Household Members spouse Type of Drives own vehicle transporation used prior to admit Independent with ADL Yes 's Is patient alert and Yes oriented? Discharge Plan Home Transportation Family Arrangement Referrals Initiated None needed Document 03/04/25 12:02 LN (Rec: 03/04/25 12:02 LN [id number]) Discharge Planning Assessment Assigned Discharge CYNDI Meyer [employer] Support Worker Insurance [facility],Medicare DPOA/Assigned Spouse- Patricia Designee Name Contact Information [phone] Advance Directives? Yes Advance Directives Yes on File History Provided By Patient,Family Member,Medical Record Has Patient been No admitted in last 30 days? Prior Living House Arrangements Household Members spouse Type of Drives own vehicle transporation used prior to admit Independent with ADL Yes 's Is patient alert and Yes oriented? Discharge Plan Home Transportation Family Arrangement Referrals Initiated None needed
[2025-03-04] MEDS: VANCOMYCIN 1,250 MG/250 ML PIGGYBACK 250 MG IV (12:50)
[2025-03-04] MEDS: ACETAMINOPHEN 325 MG TABLET 650 MG PO ×2 (14:56→20:08)
[2025-03-04] MEDS: SACUBITRIL VALSARTAN 1 EACH PO (20:06)
[2025-03-04] MEDS: MELATONIN 3 MG TABLET PO (20:07)
[2025-03-05 03:37] VITALS: BP 128/70; PULSE 60; RESP 16; TEMP 36.2; O2SAT 94
[2025-03-05] MEDS: LEVOTHYROXINE 88 MCG TABLET PO (05:55)
[2025-03-05] MEDS: ACETAMINOPHEN 325 MG TABLET 650 MG PO ×2 (05:55→12:01)
[2025-03-05] MEDS: FINASTERIDE 5 MG TABLET PO (09:19)
[2025-03-05] MEDS: ATORVASTATIN 20 MG TABLET 40 MG PO (09:19)
[2025-03-05] MEDS: AMIODARONE 200 MG TABLET 50 MG PO (09:19)
[2025-03-05] MEDS: METOPROLOL ER 50 MG TABLET PO ×2 (09:19→20:28)
[2025-03-05] MEDS: TAMSULOSIN 0.4 MG CAPSULE 0.8 MG PO (09:19)
[2025-03-05] MEDS: ASPIRIN 81 MG CHEW TAB PO (09:19)
[2025-03-05] MEDS: ASCORBIC ACID 500 MG TABLET 1000 MG PO ×2 (09:19→20:27)
[2025-03-05] MEDS: MULTIVITAMIN 1 TABLET 1 TAB PO (09:19)
[2025-03-05] MEDS: SODIUM CHLORIDE 0.9% FLUSH 10 ML IV ×3 (09:20→20:29)
[2025-03-05] MEDS: NEOMYCIN/POLY/DEX OPHTH OINT 1 APPLIC EYE-LEFT ×3 (09:21→20:30)
[2025-03-05 09:22] VITALS: BP 124/74; PULSE 63; TEMP 36.1; O2SAT 94
[2025-03-05] MEDS: SACUBITRIL VALSARTAN 1 EACH PO ×2 (09:31→20:28)
[2025-03-05] MEDS: VANCOMYCIN 1,250 MG/250 ML PIGGYBACK 250 MG IV (13:34)
--- NOTE | 2025-03-05 14:18 | CM.DPC ---
DCP Cont. Reviewed EMR and team rounds for pt's medical status and updates. Per Hospitalist, pt will likely need 1-more day of IV antibiotics before being medically ready for home d/c. No CM d/c needs are anticipated at this time.
--- NOTE | 2025-03-05 14:56 | P.PN_ITS ---
Subjective Subjective Date Patient Seen: 03/05/25 Interval history: Chief complaint: Periorbital cellulitis left eye History of present illness: 03/03: 84-year-old male history of obstructed tear ducts and previous periorbital cellulitis developed redness pain and swelling around his left eye 02/28: Was started on oral Omnicef on 03/[address] Jensen his mortgage loan officer originator. There was some improvement in the cellulitis but it did not continue to improve patient came to the emergency room 03/03. Findings in the emergency department significant for orbital cellulitis with focal inflammatory change involving the medial inferior left orbit at the orifice of the nasolacrimal duct with prior antrectomy and removal of the ostiomeatal complexes the meatal villalobos of the maxillary sinuses in several of the ethmoid air cell septations Patient was started on intravenous vancomycin and ceftriaxone per standards and guidelines for periorbital cellulitis. [facility] ophthalmology was consulted reviewed images and agree that the patient could be treated here at [facility] and reconsult them in if there is not improvement with IV antibiotic therapy with vancomycin ceftriaxone. Patient was admitted to medicine service Hospital course: 03/04: Less swelling and vision is clearing in the left eye no fevers or chills overnight tolerating medication 03/05: Progressively improved swelling around left eye still some pain but reduced pain Review of systems: No fever or chills No visual changes No chest pain shortness for No nausea vomiting No fatigue Physical exam: Elderly male no acute distress HEENT left periorbital edema with subconjunctival injection improve over the next 24 hours No labored respiration Abdomen benign Extremities no edema Assessment and plan: Periorbital edema with lacrimal duct dysfunction and previous sinus surgeries started on antibiotic therapy * Vancomycin and ceftriaxone per reference recommended standards of EBM * Monitor progress * May be suitable for deescalation to oral antibiotics and discharge 03/06 Chronic medical conditions: * Ischemic cardiomyopathy with previous episodes of ventricular tachycardia status post AICD EF 20-25% * Diabetes mellitus * CKD * SAUL on CPAP DVT prophylaxis: * Not indicated patient is up ambulatory Code status: * Full code blue Disposition: * Inpatient we will consult mortgage loan officer originator Dr. Jensen to see if she can come by and see the patient * Most likely anticipate discharge Tuesday 03/06 Time based billin minutes were involved in the management of this including [id number] evaluation review of chart discussion with emergency provider review of recommendations from [facility] and review of practice status through electronic evidence based medicine standards Exam Vital Signs (past 8 hours): - 03/05/25 08:00 03/05/25 09:22 Temperature 96.9 F L Pulse Rate 63 Blood Pressure 124/74 Pulse Oximetry 94 Oxygen Delivery Method Room Air Oxygen Flow Rate 0 Oxygen Delivery Method Room Air Oxygen Flow Rate 0 Objective Labs 03/04/25 09:25 03/04/25 09:25 Labs: Laboratory Results - last 24 hr 03/04/25 03/04/25 03/05/25 16:45 21:21 07:39 POC Whole Bld Glucose 163 H 129 H 151 H 03/05/25 11:15 POC Whole Bld Glucose 153 H PFS Medical History CPAP (continuous positive airway pressure) dependence Obstructive sleep apnea BPH (benign prostatic hyperplasia) Hyperlipidemia Essential hypertension Coronary artery disease Congestive heart failure Thrombocytopenia Surgical History History of automatic internal cardiac defibrillator (AICD) History of heart bypass surgery Family History Father Heart disease Mother Hypertension Social History household members: spouse Smoking Status: Former smoker alcohol intake: current eating out: rarely or never Type(s) of exercise: walking Assessment & Plan Time-Based Coding :: [TOTAL MINUTES] spent with patient and on the chart (including review of chart, obtaining history, exam, reviewing outside data, placing orders, documenting exam and treatment plan, and counseling patient) on [DATE]. Quality VTE Deep Vein Thrombosis/Pulmonary Embolism Present on Admission: No
--- NOTE | 2025-03-05 15:07 | DI.CT.S_ITS ---
PROCEDURE: CT FACIAL BONES W CON INDICATIONS: Orbital cellulitis TECHNIQUE: After the administration of intravenous contrast, 2.5 mm axial sections acquired from the mid-neck to the frontal sinuses, with coronal and sagittal reformats. For radiation dose reduction, the following was used: automated exposure control, adjustment of mA and/or kV according to patient size. COMPARISON: [facility], CT, CT FACIAL BONES W CON, 03/03/2025, 11:36. FINDINGS: Image quality: Excellent. Soft tissues: Significant soft tissue swelling can be seen within the left periorbital region. There is focal soft tissue fullness seen along the inferior medial left orbit. No soft tissue gas is seen. No elbert drainable abscess collection is seen. Overall, the degree of soft tissue thickening appears slightly worse than on the 03/05/2025 examination. No postseptal involvement is seen. Vascular: Visualized vascular structures appear patent throughout. Bony vascular foramina and canals appear normal. Bones: Facial bones appear intact, without fractures, erosions, or destruction. Visualized portions of the skull base and auditory canals also appear normal. Sinuses: There is at least moderate mucosal thickening within the left maxillary sinus. The frontal sinuses are completely opacified. The ethmoid air cells are nearly completely opacified. Postoperative changes are seen, with extensive bilateral antrectomy. IMPRESSION: Left orbital cellulitis, which is mildly worse than on the prior examination. Soft tissue fullness can be seen within the inferior medial left orbit, which is consistent with a focal abnormality of the nasolacrimal duct. No postseptal involvement is seen. 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 Prior postoperative change can be seen, with extensive bilateral antrectomy. Dictated by: Casey Nielson M.D. on 03/05/2025 at 15:18 Approved by: Casey Nielson M.D. on 03/05/2025 at 15:21
--- NOTE | 2025-03-05 17:13 | P.DS_ITS ---
History of Present Illness History of Present Illness Date Patient Seen: 03/05/25 Chief complaint: LT eye infection; tear ducts plugged Narrative: Chief complaint: Periorbital cellulitis left eye History of present illness: 03/03: 84-year-old male history of obstructed tear ducts and previous periorbital cellulitis developed redness pain and swelling around his left eye 02/28: Was started on oral Omnicef on 03/[address] Jensen his seed and fertilizer specialist. There was some improvement in the cellulitis but it did not continue to improve patient came to the emergency room 03/03. Findings in the emergency department significant for orbital cellulitis with focal inflammatory change involving the medial inferior left orbit at the orifice of the nasolacrimal duct with prior antrectomy and removal of the ostiomeatal complexes the meatal villalobos of the maxillary sinuses in several of the ethmoid air cell septations Patient was started on intravenous vancomycin and ceftriaxone per standards and guidelines for periorbital cellulitis. [facility] reviewed images and agree that the patient could be treated here at [facility] and reconsult them in if there is not improvement with IV antibiotic therapy with vancomycin ceftriaxone. Patient was admitted to medicine service Past medical history significant for: Ischemic cardiomyopathy with previous episodes of ventricular tachycardia status post AICD EF 20-25% Diabetes mellitus CKD SAUL on CPAP Hospital course: 03/04: Less swelling and vision is clearing in the left eye no fevers or chills overnight tolerating medication 03/05: Seemed to continue to improve this morning however by the afternoon the swelling was notably worse repeat CT was performed which demonstrated worsening periorbital edema. The evidence based medical database was referred for orbital cellulitis that fails first-line therapy of vancomycin and ceftriaxone. That these be converted to Zosyn and daptomycin (recommendations per NEJM 2017) Review of systems: No fever or chills No visual changes No chest pain shortness for No nausea vomiting No fatigue Physical exam: Elderly male no acute distress HEENT left periorbital edema with subconjunctival injection No labored respiration Abdomen benign Extremities no edema Assessment and plan: Periorbital edema with lacrimal duct dysfunction and previous sinus surgeries started on antibiotic therapy * Vancomycin and ceftriaxone S discontinued and escalated to daptomycin and Zosyn per reference recommended standards of EBM, [place] Journal of Medicine 2017 * Monitor progress Chronic medical conditions: * Ischemic cardiomyopathy with previous episodes of ventricular tachycardia status post AICD EF 20-25% * Diabetes mellitus * CKD * SAUL on CPAP DVT prophylaxis: * Not indicated patient is up ambulatory Code status: * Full code blue Disposition: * [facility] for this patient from the emergency room Time based billin minutes were involved in the management of this including [id number] evaluation review of chart discussion with emergency provider review of [facility] and review of practice status through electronic evidence based medicine standards Discharge Providers Provider Date of admission: 03/03/25 13:33 Discharge Date: 03/05/25 Primary care physician: Carrie Garcia MD Discharge provider: Harjinder Gilliland MD Exam Vital Signs (past 8 hours): - 03/05/25 09:22 Temperature 96.9 F L Pulse Rate 63 Blood Pressure 124/74 Pulse Oximetry 94 Oxygen Flow Rate 0 Oxygen Delivery Method Room Air Oxygen Flow Rate 0 Objective Labs 03/04/25 09:25 03/04/25 09:25 Labs: Laboratory Results - last 24 hr 03/04/25 03/05/25 03/05/25 21:21 07:39 11:15 POC Whole Bld Glucose 129 H 151 H 153 H PFSH Medical History CPAP (continuous positive airway pressure) dependence Obstructive sleep apnea BPH (benign prostatic hyperplasia) Hyperlipidemia Essential hypertension Coronary artery disease Congestive heart failure Thrombocytopenia Surgical History History of automatic internal cardiac defibrillator (AICD) History of heart bypass surgery Family History Father Heart disease Mother Hypertension Social History household members: spouse Smoking Status: Former smoker alcohol intake: current eating out: rarely or never Type(s) of exercise: walking Discharge Plan Discharge Plan Patient Disposition: [facility] Discharge Data Primary Care Provider: Carrie Garcia VTE Deep Vein Thrombosis/Pulmonary Embolism Present on Admission: No
[2025-03-05] MEDS: SODIUM CHLORIDE 0.9% IV (18:15)
[2025-03-05] MEDS: DAPTOMYCIN IV (18:15)
[2025-03-05] MEDS: PIPERACILLIN/TAZO 3.375 GM in SODIUM CHLORIDE 0.9% 100 ML IV (19:41)
[2025-03-05 20:20] VITALS: BP 131/76; PULSE 64; RESP 18; TEMP 36.2; O2SAT 95
[2025-03-05 20:28] VITALS: BP 124/74; PULSE 64
[2025-03-05] MEDS: MELATONIN 3 MG TABLET PO (20:28)
[2025-03-05 22:20] VITALS: BP 116/70; PULSE 60
[2025-03-06] MEDS: MELATONIN 3 MG TABLET 6 MG PO (01:15)
[2025-03-06] MEDS: PIPERACILLIN/TAZO 3.375 GM in SODIUM CHLORIDE 0.9% 100 ML IV ×3 (03:21→18:40)
[2025-03-06] MEDS: LEVOTHYROXINE 88 MCG TABLET PO (06:25)
[2025-03-06 09:45] VITALS: BP 117/63; PULSE 62; TEMP 35.9; O2SAT 96
[2025-03-06] MEDS: ASCORBIC ACID 500 MG TABLET 1000 MG PO ×2 (09:49→21:02)
[2025-03-06] MEDS: ASPIRIN 81 MG CHEW TAB PO (09:49)
[2025-03-06] MEDS: METOPROLOL ER 50 MG TABLET PO ×2 (09:49→21:10)
[2025-03-06] MEDS: MULTIVITAMIN 1 TABLET 1 TAB PO (09:49)
[2025-03-06] MEDS: TAMSULOSIN 0.4 MG CAPSULE 0.8 MG PO (09:49)
[2025-03-06] MEDS: AMIODARONE 200 MG TABLET 50 MG PO (09:49)
[2025-03-06] MEDS: FINASTERIDE 5 MG TABLET PO (09:50)
[2025-03-06] MEDS: NEOMYCIN/POLY/DEX OPHTH OINT 1 APPLIC EYE-LEFT ×4 (09:51→21:05)
[2025-03-06] MEDS: SACUBITRIL VALSARTAN 1 EACH PO ×2 (09:55→21:01)
--- NOTE | 2025-03-06 11:53 | CM.DPC ---
DCP Cont. Reviewed EMR and team rounds for pt's medical status and updates. Per Hospitalist, he is hoping to transfer pt to [facility] for higher level of care/evaluation of pt's eye infection, which is worsening. Pending a bed, or, plan will be upgraded tomorrow if they cannot accept. Monitoring for any final d/c needs.
[2025-03-06] MEDS: SODIUM CHLORIDE 0.9% FLUSH 10 ML IV (12:00)
--- NOTE | 2025-03-06 14:52 | PM.PN.1 ---
Subjective Subjective Date Patient Seen: 03/06/25 Interval history: Chief complaint: Periorbital cellulitis left eye History of present illness: 03/03: 84-year-old male history of obstructed tear ducts and previous periorbital cellulitis developed redness pain and swelling around his left eye 02/28: Was started on oral Omnicef on 03/[address] Jensen his protective signal repairer helper. There was some improvement in the cellulitis but it did not continue to improve patient came to the emergency room 03/03. Findings in the emergency department significant for orbital cellulitis with focal inflammatory change involving the medial inferior left orbit at the orifice of the nasolacrimal duct with prior antrectomy and removal of the ostiomeatal complexes the meatal villalobos of the maxillary sinuses in several of the ethmoid air cell septations Patient was started on intravenous vancomycin and ceftriaxone per standards and guidelines for periorbital cellulitis. [facility] ophthalmology was consulted reviewed images and agree that the patient could be treated here at [facility] and reconsult them in if there is not improvement with IV antibiotic therapy with vancomycin ceftriaxone. Patient was admitted to medicine service Past medical history significant for: Ischemic cardiomyopathy with previous episodes of ventricular tachycardia status post AICD EF 20-25% Diabetes mellitus CKD SAUL on CPAP Hospital course: 03/04: Less swelling and vision is clearing in the left eye no fevers or chills overnight tolerating medication 03/05: Seemed to continue to improve this morning however by the afternoon the swelling was notably worse repeat CT was performed which demonstrated worsening periorbital edema. The evidence based medical database was referred for orbital cellulitis that fails first-line therapy of vancomycin and ceftriaxone. That these be converted to Zosyn and daptomycin (recommendations per NEJM 2017) 03/06: Overnight an abscess drained with a marked reducing in pain redness and swelling discussed the case with Dr. Palacio protective signal repairer helper at [facility] continuing with the current antibiotic regimen de-escalated to oral antibiotics in 24-48 hours Review of systems: No fever or chills No visual changes No chest pain shortness for No nausea vomiting No fatigue Physical exam: Elderly male no acute distress HEENT left periorbital edema with subconjunctival injection No labored respiration Abdomen benign Extremities no edema Assessment and plan: Periorbital edema with lacrimal duct dysfunction and previous sinus surgeries started on antibiotic therapy Vancomycin and ceftriaxone S discontinued and escalated to daptomycin and Zosyn per reference recommended standards of EBM, new [place] Journal of Medicine 2017 Monitor progress Chronic medical conditions: Ischemic cardiomyopathy with previous episodes of ventricular tachycardia status post AICD EF 20-25% Diabetes mellitus CKD SAUL on CPAP DVT prophylaxis: Not indicated patient is up ambulatory Code status: Full code blue Disposition: Inpatient and refer for transfer to [facility] who was initially consulted for this patient from the emergency room Time based billin minutes were involved in the management of this including [id number] evaluation review of chart discussion with emergency provider review of recommendations from [facility] and review of practice status through electronic evidence based medicine standards Exam Vital Signs (past 8 hours): - 03/06/25 09:45 Temperature 96.6 F L Pulse Rate 62 Blood Pressure 117/63 Pulse Oximetry 96 Oxygen Flow Rate 0 Oxygen Delivery Method Room Air Oxygen Flow Rate 0 Objective Labs 03/04/25 09:25 03/04/25 09:25 Labs: Laboratory Results - last 24 hr 03/05/25 03/06/25 03/06/25 20:24 09:27 12:03 POC Whole Bld Glucose 160 H 193 H 106 H PFSH Medical History CPAP (continuous positive airway pressure) dependence Obstructive sleep apnea BPH (benign prostatic hyperplasia) Hyperlipidemia Essential hypertension Coronary artery disease Congestive heart failure Thrombocytopenia Surgical History History of automatic internal cardiac defibrillator (AICD) History of heart bypass surgery Family History Father Heart disease Mother Hypertension Social History household members: spouse Smoking Status: Former smoker alcohol intake: current eating out: rarely or never Type(s) of exercise: walking Assessment & Plan Time-Based Coding :: [TOTAL MINUTES] spent with patient and on the chart (including review of chart, obtaining history, exam, reviewing outside data, placing orders, documenting exam and treatment plan, and counseling patient) on [DATE]. Quality VTE Deep Vein Thrombosis/Pulmonary Embolism Present on Admission: No
[2025-03-06 17:54] LABS: Add Manual Diff / Slide Review NO; Hematocrit 36.4 % (41-53); Hemoglobin 12.1 g/dL (13.5-17.5); Lymphocytes Absolute Auto 1600 /uL (1100-4500); Mean Corpuscular HGB Conc 33.4 % (30-36); Mean Corpuscular Hemoglobin 29.3 PG (26-34); Mean Corpuscular Volume 87.8 fL (80-100); Platelet Count 181 X10^3/uL (150-400)
[2025-03-06] MEDS: DAPTOMYCIN IV (18:09)
[2025-03-06] MEDS: SODIUM CHLORIDE 0.9% IV (18:09)
[2025-03-06 18:17] LABS: Alanine Aminotransferase 15 IU/L (<50); Albumin 3.8 g/dL (3.5-5.0); Albumin Globulin Ratio 1.5 (1.0-2.8); Alkaline Phosphatase 61 U/L (38-126); Blood Urea Nitrogen 21 mg/dL (9-20); Calcium 9.1 mg/dL (8.4-10.2); Carbon Dioxide 25 mmol/L (22-32); Chloride 102 mmol/L (98-107); Estimated Glomerular Filt Rate > 60 mL/min (>60); Globulin 2.6 g/dL (1.7-4.1); Glucose 126 mg/dL (70-99); HEMOLYSIS 19 (0-50); Potassium 4.5 mmol/L (3.4-5.1); Sodium 136 mmol/L (137-145); Total Protein 6.4 g/dL (6.3-8.2)
[2025-03-06 18:18] LABS: Magnesium 1.6 mg/dL (1.6-2.3)
[2025-03-06 20:00] VITALS: BP 119/66; PULSE 60; RESP 16; TEMP 36.2; O2SAT 95
[2025-03-06] MEDS: MELATONIN 3 MG TABLET PO (21:05)
[2025-03-06 21:10] VITALS: BP 119/65; PULSE 59
[2025-03-07] MEDS: PIPERACILLIN/TAZO 3.375 GM in SODIUM CHLORIDE 0.9% 100 ML IV (03:29)
[2025-03-07 04:48] LABS: Blood Urea Nitrogen 21 mg/dL (9-20); Calcium 8.8 mg/dL (8.4-10.2); Carbon Dioxide 21 mmol/L (22-32); Chloride 104 mmol/L (98-107); Estimated Glomerular Filt Rate > 60 mL/min (>60); Glucose 128 mg/dL (70-99); HEMOLYSIS < 15 (0-50); Hemoglobin A1C% w Est Avg Glu 7.2 % (4.0-6.0); Magnesium 1.5 mg/dL (1.6-2.3); Potassium 4.3 mmol/L (3.4-5.1); Sodium 134 mmol/L (137-145)
[2025-03-07] MEDS: LEVOTHYROXINE 88 MCG TABLET PO (06:00)
--- NOTE | 2025-03-07 07:21 | P.PN_ITS ---
Subjective Subjective Interval history: Chief complaint: Periorbital cellulitis left eye History of present illness: 03/03: 84-year-old male history of obstructed tear ducts and previous periorbital cellulitis developed redness pain and swelling around his left eye 02/28: Was started on oral Omnicef on 03/[address] Jensen his electronic data interchange specialist. There was some improvement in the cellulitis but it did not continue to improve patient came to the emergency room 03/03. Findings in the emergency department significant for orbital cellulitis with focal inflammatory change involving the medial inferior left orbit at the orifice of the nasolacrimal duct with prior antrectomy and removal of the ostiomeatal complexes the meatal villalobos of the maxillary sinuses in several of the ethmoid air cell septations Patient was started on intravenous vancomycin and ceftriaxone per standards and guidelines for periorbital cellulitis. [facility] ophthalmology was consulted reviewed images and agree that the patient could be treated here at [facility] and reconsult them in if there is not improvement with IV antibiotic therapy with vancomycin ceftriaxone. Patient was admitted to medicine service Past medical history significant for: Ischemic cardiomyopathy with previous episodes of ventricular tachycardia status post AICD EF 20-25% Diabetes mellitus CKD SAUL on CPAP Hospital course: 03/04: Less swelling and vision is clearing in the left eye no fevers or chills overnight tolerating medication 03/05: Seemed to continue to improve this morning however by the afternoon the swelling was notably worse repeat CT was performed which demonstrated worsening periorbital edema. The evidence based medical database was referred for orbital cellulitis that fails first-line therapy of vancomycin and ceftriaxone. That these be converted to Zosyn and daptomycin (recommendations per NEJM 2017) 03/06: Overnight an abscess drained with a marked reducing in pain redness and swelling discussed the case with Dr. Palacio electronic data interchange specialist at [facility] continuing with the current antibiotic regimen de-escalated to oral antibiotics in 24-48 hours. S: O: NAD, alert and oriented. Fluent speech. Lungs are clear, normal rate and effort. Heart is regular, no murmur gallop or rub. Abdomen is soft, non distended. Extremities are free of edema. 1. Periorbital edema and cellulitis with lacrimal duct dysfunction and previous sinus surgeries started on antibiotic therapy * Vancomycin and ceftriaxone S discontinued and escalated to daptomycin and Zosyn per reference recommended standards of EBM, new [place] Journal of Medicine 2017 * Monitor progress Chronic medical conditions: * Ischemic cardiomyopathy with previous episodes of ventricular tachycardia status post AICD EF 20-25% * Diabetes mellitus * CKD * SAUL on CPAP DVT prophylaxis: * Not indicated patient is up ambulatory Code status: * Full code blue Exam Vital Signs (past 8 hours): Oxygen Delivery Method Room Air Oxygen Flow Rate 0 Objective Labs 03/06/25 17:45 03/07/25 04:08 Labs: Laboratory Results - last 24 hr 03/06/25 03/06/25 03/06/25 09:27 12:03 17:23 WBC RBC Hgb Hct MCV MCH MCHC RDW Plt Count Neut % (Auto) Lymph % (Auto) [place] % (Auto) Eos % (Auto) Baso % (Auto) Neut # (Auto) Lymph # (Auto) [place] # (Auto) Eos # (Auto) Baso # (Auto) Sodium Potassium Chloride Carbon Dioxide BUN Creatinine Estimated GFR BUN/Creatinine Ratio Glucose POC Whole Bld Glucose 193 H 106 H 133 H Hemoglobin A1c Calcium Magnesium Total Bilirubin AST ALT Alkaline Phosphatase Total Protein Albumin Globulin Albumin/Globulin Ratio 03/06/25 03/06/25 03/06/25 17:45 17:52 20:38 WBC 3.6 L RBC 4.15 L Hgb 12.1 L Hct 36.4 L MCV 87.8 MCH 29.3 MCHC 33.4 RDW 16.3 H Plt Count 181 Neut % (Auto) 46.3 L Lymph % (Auto) 45.3 H [place] % (Auto) 4.7 Eos % (Auto) 3.5 Baso % (Auto) 0.2 Neut # (Auto) 1600 Lymph # (Auto) 1600 [place] # (Auto) 200 Eos # (Auto) 100 Baso # (Auto) 0 Sodium 136 L Potassium 4.5 Chloride 102 Carbon Dioxide 25 BUN 21 H Creatinine 1.19 Estimated GFR > 60 BUN/Creatinine Ratio 17.6 Glucose 126 H POC Whole Bld Glucose 146 H 146 H Hemoglobin A1c Calcium 9.1 Magnesium 1.6 Total Bilirubin 0.3 AST 24 ALT 15 Alkaline Phosphatase 61 Total Protein 6.4 Albumin 3.8 Globulin 2.6 Albumin/Globulin Ratio 1.5 03/07/25 04:08 WBC RBC Hgb Hct MCV MCH MCHC RDW Plt Count Neut % (Auto) Lymph % (Auto) [place] % (Auto) Eos % (Auto) Baso % (Auto) Neut # (Auto) Lymph # (Auto) [place] # (Auto) Eos # (Auto) Baso # (Auto) Sodium 134 L Potassium 4.3 Chloride 104 Carbon Dioxide 21 L BUN 21 H Creatinine 1.15 Estimated GFR > 60 BUN/Creatinine Ratio 18.3 Glucose 128 H POC Whole Bld Glucose Hemoglobin A1c 7.2 H Calcium 8.8 Magnesium 1.5 L Total Bilirubin AST ALT Alkaline Phosphatase Total Protein Albumin Globulin Albumin/Globulin Ratio PFSH Medical History CPAP (continuous positive airway pressure) dependence Obstructive sleep apnea BPH (benign prostatic hyperplasia) Hyperlipidemia Essential hypertension Coronary artery disease Congestive heart failure Thrombocytopenia Surgical History History of automatic internal cardiac defibrillator (AICD) History of heart bypass surgery Family History Father Heart disease Mother Hypertension Social History household members: spouse Smoking Status: Former smoker alcohol intake: current eating out: rarely or never Type(s) of exercise: walking Assessment & Plan Time-Based Coding :: [TOTAL MINUTES] spent with patient and on the chart (including review of chart, obtaining history, exam, reviewing outside data, placing orders, documenting exam and treatment plan, and counseling patient) on [DATE]. Quality VTE Deep Vein Thrombosis/Pulmonary Embolism Present on Admission: No
[2025-03-07] MEDS: METOPROLOL ER 50 MG TABLET PO (09:21)
[2025-03-07] MEDS: ASPIRIN 81 MG CHEW TAB PO (09:21)
[2025-03-07] MEDS: FUROSEMIDE 20 MG TABLET PO (09:21)
[2025-03-07] MEDS: MULTIVITAMIN 1 TABLET 1 TAB PO (09:21)
[2025-03-07] MEDS: FINASTERIDE 5 MG TABLET PO (09:21)
[2025-03-07] MEDS: TAMSULOSIN 0.4 MG CAPSULE 0.8 MG PO (09:21)
[2025-03-07] MEDS: AMIODARONE 200 MG TABLET 50 MG PO (09:21)
[2025-03-07] MEDS: ASCORBIC ACID 500 MG TABLET 1000 MG PO (09:21)
[2025-03-07] MEDS: SACUBITRIL VALSARTAN 1 EACH PO (09:21)
[2025-03-07] MEDS: NEOMYCIN/POLY/DEX OPHTH OINT 1 APPLIC EYE-LEFT (09:22)
[2025-03-07] MEDS: MAGNESIUM CHLORIDE 64 MG TABLET 128 MG PO (09:22)
--- NOTE | 2025-03-07 10:31 | P.DS_ITS ---
History of Present Illness History of Present Illness Chief complaint: LT eye infection; tear ducts plugged Narrative: From H&P: Chief complaint: Periorbital cellulitis left eye History of present illness: 03/03: 84-year-old male history of obstructed tear ducts and previous periorbital cellulitis developed redness pain and swelling around his left eye 02/28: Was started on oral Omnicef on 03/[address] Jensen his plumbing foreman. There was some improvement in the cellulitis but it did not continue to improve patient came to the emergency room 03/03. Findings in the emergency department significant for orbital cellulitis with focal inflammatory change involving the medial inferior left orbit at the orifice of the nasolacrimal duct with prior antrectomy and removal of the ostiomeatal complexes the meatal villalobos of the maxillary sinuses in several of the ethmoid air cell septations Patient was started on intravenous vancomycin and ceftriaxone per standards and guidelines for periorbital cellulitis. [facility] ophthalmology was consulted reviewed images and agree that the patient could be treated here at [facility] and reconsult them in if there is not improvement with IV antibiotic therapy with vancomycin ceftriaxone. Patient was admitted to medicine service Discharge Providers Provider Date of admission: 03/03/25 13:33 Discharge Date: 03/08/25 Primary care physician: Carrie Garcia MD Discharge provider: Ashish Hansen MD Summary Hospital Course Discharge Diagnosis: 1. Periorbital cellulitis with lacrimal duct dysfunction, improved. Chronic medical conditions (stable): * Ischemic cardiomyopathy with previous episodes of ventricular tachycardia status post AICD EF 20-25% * Diabetes mellitus * CKD * SAUL on CPAP Hospital Course: 03/04: Less swelling and vision is clearing in the left eye no fevers or chills overnight tolerating medication 03/05: Seemed to continue to improve this morning however by the afternoon the swelling was notably worse repeat CT was performed which demonstrated worsening periorbital edema. The evidence based medical database was referred for orbital cellulitis that fails first-line therapy of vancomycin and ceftriaxone. That these be converted to Zosyn and daptomycin (recommendations per NEJM 2017) 03/06: Overnight an abscess drained with a marked reducing in pain redness and swelling discussed the case with Dr. Palacio plumbing foreman at [facility] continuing with the current antibiotic regimen de-escalated to oral antibiotics in 24-48 hours 03/07: Swollen and redness much improved. Cultures revealed and reveal a MSSA. No history of MRSA. The patient was felt to be stable for discharge and he would like to go home. He will have close follow up with Dr. Jensen, his plumbing foreman. Status at Discharge Cognitive/behavioral status at discharge: oriented Functional status at discharge: independent ambulation Overall status at discharge: patient is back to baseline Time Spent with Patient Time spent: Greater than 30 minutes Exam Vital Signs (past 8 hours): Oxygen Delivery Method Room Air Oxygen Flow Rate 0 Narrative Exam Narrative: NAD, alert and oriented. Fluent speech. Lungs are clear, normal rate and effort. Heart is regular, no murmur gallop or rub. Abdomen is soft, non distended. Extremities are free of edema. There is minimal redness or swolling around the left eye. The actual eye itself is unremarkable with normal conjunctiva and vision. Objective Imaging Face CT 03/05: : Radiologist's impression: Left orbital cellulitis, which is mildly worse than on the prior examination. Soft tissue fullness can be seen within the inferior medial left orbit, which is consistent with a focal abnormality of the nasolacrimal duct. No postseptal involvement is seen. 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 Prior postoperative change can be seen, with extensive bilateral antrectomy. Labs 03/06/25 17:45 03/07/25 04:08 Labs: Laboratory Results - last 24 hr 03/06/25 03/06/25 03/06/25 12:03 17:23 17:45 WBC 3.6 L RBC 4.15 L Hgb 12.1 L Hct 36.4 L MCV 87.8 MCH 29.3 MCHC 33.4 RDW 16.3 H Plt Count 181 Neut % (Auto) 46.3 L Lymph % (Auto) 45.3 H [place] % (Auto) 4.7 Eos % (Auto) 3.5 Baso % (Auto) 0.2 Neut # (Auto) 1600 Lymph # (Auto) 1600 [place] # (Auto) 200 Eos # (Auto) 100 Baso # (Auto) 0 Sodium 136 L Potassium 4.5 Chloride 102 Carbon Dioxide 25 BUN 21 H Creatinine 1.19 Estimated GFR > 60 BUN/Creatinine Ratio 17.6 Glucose 126 H POC Whole Bld Glucose 106 H 133 H Hemoglobin A1c Calcium 9.1 Magnesium 1.6 Total Bilirubin 0.3 AST 24 ALT 15 Alkaline Phosphatase 61 Total Protein 6.4 Albumin 3.8 Globulin 2.6 Albumin/Globulin Ratio 1.5 03/06/25 03/06/25 03/07/25 17:52 20:38 04:08 WBC RBC Hgb Hct MCV MCH MCHC RDW Plt Count Neut % (Auto) Lymph % (Auto) [place] % (Auto) Eos % (Auto) Baso % (Auto) Neut # (Auto) Lymph # (Auto) [place] # (Auto) Eos # (Auto) Baso # (Auto) Sodium 134 L Potassium 4.3 Chloride 104 Carbon Dioxide 21 L BUN 21 H Creatinine 1.15 Estimated GFR > 60 BUN/Creatinine Ratio 18.3 Glucose 128 H POC Whole Bld Glucose 146 H 146 H Hemoglobin A1c 7.2 H Calcium 8.8 Magnesium 1.5 L Total Bilirubin AST ALT Alkaline Phosphatase Total Protein Albumin Globulin Albumin/Globulin Ratio 03/07/25 07:41 WBC RBC Hgb Hct MCV MCH MCHC RDW Plt Count Neut % (Auto) Lymph % (Auto) [place] % (Auto) Eos % (Auto) Baso % (Auto) Neut # (Auto) Lymph # (Auto) [place] # (Auto) Eos # (Auto) Baso # (Auto) Sodium Potassium Chloride Carbon Dioxide BUN Creatinine Estimated GFR BUN/Creatinine Ratio Glucose POC Whole Bld Glucose 144 H Hemoglobin A1c Calcium Magnesium Total Bilirubin AST ALT Alkaline Phosphatase Total Protein Albumin Globulin Albumin/Globulin Ratio [facility] Medical History CPAP (continuous positive airway pressure) dependence Obstructive sleep apnea BPH (benign prostatic hyperplasia) Hyperlipidemia Essential hypertension Coronary artery disease Congestive heart failure Thrombocytopenia Surgical History History of automatic internal cardiac defibrillator (AICD) History of heart bypass surgery Family History Father Heart disease Mother Hypertension Social History household members: spouse alcohol intake: current eating out: rarely or never Type(s) of exercise: walking Discharge Assessment & Plan Assessment and Plan Assessment: 1. Left orbital cellulitis, improved. Plan of Treatment: We will be discharged on cephalexin 500 q.i.d. for 7 days. He was asked to see his eye doctor within the next 2-3 days for re-evaluation or come back to the ER if there is increased redness, swelling, pain, or visual changes. Discharge Plan Discharge Plan Patient Disposition: Home Provider Discharge Comment: Stable for discharge home, we will start a 5 day course of cephalexin. Discharge orders & Medications Prescriptions: New cephalexin 500 mg capsule 500 mg PO QID 5 Days Qty: 20 0RF Continued erythromycin 5 mg/gram (0.5 %) ointment 1 cm ophthalmic (eye) .COMPLEX Qty: 3.5 0RF Rx Instructions: 1 cm into the affected eye(s) up to 6 times a day; amiodarone 100 mg tablet 50 mg PO Q24H metoprolol succinate 50 mg tablet extended release 24 hr 50 mg PO BID levothyroxine 88 mcg tablet 88 mcg PO DAILY tamsulosin 0.4 mg capsule 0.8 mg PO DAILY Jardiance 10 mg tablet 10 mg PO DAILY sacubitril-valsartan [Entresto] 49-51 mg tablet 1 tab PO BID aspirin 81 mg Tablet,Chewable 81 mg PO DAILY multivitamin Capsule 1 cap PO DAILY atorvastatin 40 mg Tablet 40 mg PO DAILY ascorbic acid (vitamin C) 1,000 mg Tablet Extended Release 1,000 mg PO Q12H eplerenone 25 mg Tablet 25 mg PO DAILY metformin 500 mg Tablet Extended Release 24 Hr 1,000 mg PO BID finasteride 5 mg tablet 5 mg PO DAILY furosemide 20 mg tablet 20 mg PO QWEEK (DME) Respironics [facility] See Rx Instructions .Route .MEDSUPPLY Rx Instructions: CPAP [facility] Min: 6 Max: 12 DME: [place] nitroglycerin 0.4 mg tablet, sublingual 0.4 mg sublingual Q5M PRN (Reason: Chest Pain) Rx Instructions: do not exceed 3 doses per episode Follow up/Referrals: Carrie Garcia MD [Primary Care Provider, Internal Medicine] Discharge Health Status Multidrug resistant organism: No MDRO Diet/Activity/Treatments Diet: Low-sodium Skin/Wound/Dressing Care Report to your healthcare provider any signs of infection, such as:: chills, fever, night sweats, increased pain, unusual drainage and unusual redness Visit Report/Discharge Packet Instructions: DI for Orbital Cellulitis Stand Alone Forms: Patient Portal/API Discharge Data Primary Care Provider: Carrie Garcia Quality VTE Deep Vein Thrombosis/Pulmonary Embolism Present on Admission: No
--- NOTE | 2025-03-07 10:55 | CM.DPC ---
DCP Cont. Reviewed EMR and team rounds for pt's medical status and updates. Pt has been medically cleared for home d/c. Family will transport home. No further CM d/c assistance or resource needs indicated at this time.
--- NOTE | 2025-03-07 11:06 | PC.NURSE ---
Discharge instructions given and understood by pt and pt's spouse. PIV removed. Pt discharged via private vehicel with pt's spouse, escorted using a wheelchair.
== END 2025-03-07 11:07 | disposition home or self-care (01) | DRG 603 ==
LOC: ED 10:40 → AC 13:34
PROVIDERS: Pharmacist Pharmacist Clinician (PhC)/ Clinical Pharmacy Specialist; Admitting Provider Internal Medicine; Emergency Provider Family Medicine; PCP Internal Medicine; Referring Provider Family Medicine; Visit Provider Internal Medicine
DX: L03.213 Periorbital cellulitis (principal); H04.89 Other disorders of lacrimal system; E11.22 Type 2 diabetes mellitus with diabetic chronic kidney disease; N18.9 Chronic kidney disease, unspecified; G47.33 Obstructive sleep apnea (adult) (pediatric); I25.5 Ischemic cardiomyopathy; B95.61 Methicillin susceptible Staphylococcus aureus infection as the cause of diseases classified elsewhere; I12.9 Hypertensive chronic kidney disease with stage 1 through stage 4 chronic kidney disease, or unspecified chronic kidney disease; I25.10 Atherosclerotic heart disease of native coronary artery without angina pectoris; N40.0 Benign prostatic hyperplasia without lower urinary tract symptoms; E78.5 Hyperlipidemia, unspecified; Z95.810 Presence of automatic (implantable) cardiac defibrillator; Z86.79 Personal history of other diseases of the circulatory system; Z87.891 Personal history of nicotine dependence; Z98.890 Other specified postprocedural states; Z79.84 Long term (current) use of oral hypoglycemic drugs
CPT/HCPCS: 36415; 70487; 80048; 80053; 82962; 83036; 83605; 83735; 85025; 85610; 87040; 87070; 87075; 87186; 87205; 96365; 96367; 99284; J0696; J0878; J2543; J3373; J3375; J7050; Q9967

== ENCOUNTER → 2025-03-10 09:13 | Outpatient (CLI) | payer MEDICARE, SELFPAY ==
[2025-03-03 14:31] VITALS: BMI 27.6
[2025-03-10 10:36] LABS: Alanine Aminotransferase 18 IU/L (<50); Albumin 4.3 g/dL (3.5-5.0); Albumin Globulin Ratio 1.7 (1.0-2.8); Alkaline Phosphatase 65 U/L (38-126); Blood Urea Nitrogen 24 mg/dL (9-20); Calcium 9.5 mg/dL (8.4-10.2); Carbon Dioxide 24 mmol/L (22-32); Chloride 101 mmol/L (98-107); Cholesterol 108 mg/dL (140-199); Estimated Glomerular Filt Rate 58 mL/min (>60); Globulin 2.5 g/dL (1.7-4.1); Glucose 101 mg/dL (70-99); HDL Cholesterol 21 mg/dL (40-60); HEMOLYSIS < 15 (0-50); Potassium 4.7 mmol/L (3.4-5.1); Sodium 137 mmol/L (137-145); Total Protein 6.8 g/dL (6.3-8.2); Triglycerides 185 mg/dL (35-150)
[2025-03-10 11:06] LABS: Thyroid Stimulating Hormone 3.36 uIU/mL (0.47-4.68)
== END ==
PROVIDERS: PCP Internal Medicine; Referring Provider Internal Medicine Cardiovascular Disease; Visit Provider Internal Medicine Cardiovascular Disease
DX: I25.5 Ischemic cardiomyopathy (principal); I50.22 Chronic systolic (congestive) heart failure
CPT/HCPCS: 36415; 80053; 80061; 84443

== ENCOUNTER → 2025-03-15 13:19 | Outpatient (CLI) | payer MEDICARE, SELFPAY ==
[2025-03-03 14:31] VITALS: BMI 27.6
== END ==
PROVIDERS: PCP Internal Medicine; Referring Provider Internal Medicine; Visit Provider Internal Medicine Cardiovascular Disease
DX: I50.22 Chronic systolic (congestive) heart failure (principal); Z87.891 Personal history of nicotine dependence; R94.2 Abnormal results of pulmonary function studies
CPT/HCPCS: 94060; 94726; 94729